=== PATIENT | male | born 1980 | race Hispanic/Latino ===

== ENCOUNTER 2017-09-12 19:52 | Inpatient (IN) | payer MEDICAID ==
[~2017-09-12] VITALS: Ht 170.2 cm; Wt 65.8 kg
[~2017-09-12 19:52] MED LIST: CEPHALEXIN500 MG ORAL; IBUPROFEN600 MG ORAL; NKM
[2017-09-12 20:46] LABS: ANION GAP 13 mmol/L (5-15); BLOOD UREA NITROGEN 17 mg/dL (7-18); CALCIUM 7.6 MG/DL (8.5-10.1); CARBON DIOXIDE 24 MMOL/L (21-32); CHLORIDE 101 MMOL/L (98-107); CREATININE 1.2 MG/DL (0.55-1.30); POTASSIUM 3.7 MMOL/L (3.5-5.1); SODIUM 138 MMOL/L (136-145)
[2017-09-12 20:51] LABS: ALANINE AMINOTRANSFERASE 43 U/L (12-78); ALBUMIN 2.7 G/DL (3.4-5.0); ALBUMIN/GLOBULIN RATIO 1.1 (1.0-2.7); ALKALINE PHOSPHATASE 43 U/L (46-116); ASPARTATE AMINO TRANSFERASE 37 U/L (15-37); BILIRUBIN,TOTAL 0.2 MG/DL (0.2-1.0)
[2017-09-12 21:00] LABS: HEMATOCRIT 9.1 % (42.0-52.0); HEMOGLOBIN 3.1 G/DL (14.2-18.0); MEAN CORPUSCULAR VOLUME 94 FL (80-99); RED BLOOD COUNT 0.97 M/UL (4.70-6.10); WHITE BLOOD COUNT 32.5 K/UL (4.8-10.8)
[2017-09-12 21:01] LABS: PLATELET COUNT 271 K/UL (150-450); RED CELL DISTRIBUTION WIDTH 13.5 % (11.6-14.8)
[2017-09-12 21:30] VITALS: BP 114/57
--- NOTE | 2017-09-12 22:03 | Emergency Room Report ---
History of Present Illness General Chief Complaint: Nausea, Vomiting, and Diarrhea Source: Patient Present Illness HPI 37-year-old male presents ED for evaluation. Patient came in complaining of abdominal pain and vomiting and diarrhea 3 days. States he knows blood in the stool today. Per triage patient is tachycardic, very pale. Patient states he ate a steak a few days ago and his symptoms started shortly thereafter. Denies recent travel. Denies recent antibiotic use. Denies fevers or chills. No other aggravating relieving factors. Denies any other associated symptoms Allergies: Coded Allergies: No Known Allergies (Unverified , 09/12/17) Patient History Past Medical History: none Past Surgical History: none Pertinent Family History: none Social History: Denies: smoking, alcohol use, drug use Immunizations: UTD Reviewed Nursing Documentation: PMH: Agreed; PSxH: Agreed Nursing Documentation-PMH Past Medical History: No Stated History Review of Systems All Other Systems: negative except mentioned in HPI Physical Exam Vital Signs Date Time Temp Pulse Resp B/P (MAP) Pulse Ox O2 Delivery O2 Flow Rate FiO2 09/12/17 20:04 98.4 132 24 129/61 100 Room Air 98.4 Sp02 EP Interpretation: reviewed, normal General Appearance: alert, GCS 15, non-toxic, mild distress Head: normocephalic, atraumatic Eyes: bilateral eye normal inspection, bilateral eye PERRL ENT: hearing grossly normal, normal pharynx, no angioedema, normal voice Neck: full range of motion, supple/symm/no masses Respiratory: chest non-tender, lungs clear, normal breath sounds, speaking full sentences Cardiovascular #1: no edema, tachycardia Cardiovascular #2: 2+ carotid (R), 2+ carotid (L), 2+ radial (R), 2+ radial (L) , 2+ dorsalis pedis (R), 2+ dorsalis pedis (L) Gastrointestinal: normal bowel sounds, non tender, soft, non-distended, no guarding, no rebound Rectal: deferred Genitourinary: normal inspection, no CVA tenderness Musculoskeletal: back normal, gait/station normal, normal range of motion, non- tender Neurologic: alert, oriented x3, responsive, motor strength/tone normal, sensory intact, speech normal Psychiatric: judgement/insight normal, memory normal, mood/affect normal, no suicidal/homicidal ideation Reflexes: 3+ bicep (R), 3+ bicep (L), 3+ tricep (R), 3+ tricep (L), 3+ knee (R) , 3+ knee (L) Skin: diaphoresis, other - pale Lymphatic: no adenopathy Procedures Critical Care Time Critical Care Time i. I feel this is a highly complex case requiring extensive working including EKG/Rhythm strip, Xray/CT/US, Blood/urine lab work, repeat exams while in ED, and administration of strong opiates/narcotics for pain control, admission to hospital or close patient follow up. Total time: 30 min bedside evaluation and treatment excludes procedures (EKG). Reason for critical care: Severely anemic, tachycardic, sepsis Possible complications: hypotension, hypertension, DC, shock, arrhythmias, metabolic acidosis, end organ damage, respiratory failure. Interventions: Labs, IV fluids, transfusion, antibiotics Course: Patient presenting with vomiting and diarrhea 3 days, tachycardic, pale and diaphoretic. WBC greater than 30,000, hemoglobin 3.1. Lactic acid greater than 5. Given multiple rounds of IV fluids, given Cipro, Flagyl, PRBCs ordered. Stool culture and C. difficile toxin pending Consultations: nursing staff, EMS, family Performed by: Dr Sandoval Tolerated well condition = critical j. because of unstable vital signs this patient had a condition that could potentially threaten life or limb. I feel this is a critical patient who required my full attention while patient was considered critical. Total Critical Care Time excluding procedures was greater than 35 minutes Medical Decision Making Diagnostic Impression: Primary Impression: Colitis Additional Impressions: Severe sepsis Anemia Qualified Codes: D64.9 - Anemia, unspecified ER Course Hospital Course 37-year-old male presents ED with abdominal pain, vomiting and diarrhea Clinical course differential - gastroenteritis, colitis , sepsis Patient placed on stretcher. After initial history and physical I ordered labs , IV fluids, medications Labs - WBC > 30, Hb 3.1. electrolytes ok. lactic > 5 EKG - sinus tachycardia Blood pressure maintaining. Given broad-spectrum antibiotics. Given 30 mL per KG fluid bolus. PRBCs ordered Cdiff and stool cultures pending Case discussed with Dr. Moore and he agreed to accept the patient to his service for further care and support I feel this is a highly complex case requiring extensive working including EKG/ Rhythm strip, Xray/CT/US, Blood/urine lab work, repeat exams while in ED, and administration of strong opiates/narcotics for pain control, admission to hospital or close patient follow up. Diagnosis - colitis, severe sepsis, anemia Patient admitted to SDU in critical condition Labs Test 09/12/17 19:40 09/12/17 20:45 09/12/17 21:15 Prothrombin Time 10.0 SEC (9.30-11.50) Prothromb Time International Ratio 1.0 (0.9-1.1) Activated Partial Thromboplast Time 18 SEC (23-33) Sodium Level 138 MMOL/L (136-145) Potassium Level 3.7 MMOL/L (3.5-5.1) Chloride Level 101 MMOL/L (98-107) Carbon Dioxide Level 24 MMOL/L (21-32) Anion Gap 13 mmol/L (5-15) Blood Urea Nitrogen 17 mg/dL (7-18) Creatinine 1.2 MG/DL (0.55-1.30) Estimat Glomerular Filtration Rate > 60 mL/min (>60) Glucose Level 234 MG/DL (74-106) Lactic Acid Level 5.10 mmol/L (0.66-2.22) Calcium Level 7.6 MG/DL (8.5-10.1) Total Bilirubin 0.2 MG/DL (0.2-1.0) Aspartate Amino Transf (AST/SGOT) 37 U/L (15-37) Alanine Aminotransferase (ALT/SGPT) 43 U/L (12-78) Alkaline Phosphatase 43 U/L (46-116) Total Protein 5.2 G/DL (6.4-8.2) Albumin 2.7 G/DL (3.4-5.0) Globulin 2.5 g/dL Albumin/Globulin Ratio 1.1 (1.0-2.7) White Blood Count 32.5 K/UL (4.8-10.8) Red Blood Count 0.97 M/UL (4.70-6.10) Hemoglobin 3.1 G/DL (14.2-18.0) Hematocrit 9.1 % (42.0-52.0) Mean Corpuscular Volume 94 FL (80-99) Mean Corpuscular Hemoglobin 32.3 PG (27.0-31.0) Mean Corpuscular Hemoglobin Concent 34.4 G/DL (32.0-36.0) Red Cell Distribution Width 13.5 % (11.6-14.8) Platelet Count 271 K/UL (150-450) Mean Platelet Volume 6.9 FL (6.5-10.1) Neutrophils (%) (Auto) % (45.0-75.0) Lymphocytes (%) (Auto) % (20.0-45.0) Monocytes (%) (Auto) % (1.0-10.0) Eosinophils (%) (Auto) % (0.0-3.0) Basophils (%) (Auto) % (0.0-2.0) Differential Total Cells Counted 100 Neutrophils % (Manual) 69 % (45-75) Lymphocytes % (Manual) 26 % (20-45) Monocytes % (Manual) 5 % (1-10) Eosinophils % (Manual) 0 % (0-3) Basophils % (Manual) 0 % (0-2) Band Neutrophils 0 % (0-8) Nucleated Red Blood Cells 2 /100 WBC Platelet Estimate Adequate Platelet Morphology Normal Polychromasia 1+ Hypochromasia 3+ EKG Diagnostic Results Rate: tachycardiac Rhythm: NSR ST Segments: no acute changes ASA given to the pt in ED: No Rhythm Strip Diag. Results EP Interpretation: yes Rhythm: NSR, no PVC's, no ectopy Last Vital Signs Date Time Temp Pulse Resp B/P (MAP) Pulse Ox O2 Delivery O2 Flow Rate FiO2 09/12/17 20:04 98.4 132 24 129/61 100 Room Air 98.4 Status: improved Disposition: ADMITTED INPATIENT Condition: Critical Scripts No Active Prescriptions or Reported Meds Referrals: NOT CHOSEN IPA/,REFERRING (PCP) Jarod Sandoval MD September 12, 2017 22:03
[2017-09-12 23:00] VITALS: BP 98/83
[2017-09-12] MEDS ORDERED: Acetaminophen 500mg (ES) tab ORAL ONE (23:15)
[2017-09-12 23:20] VITALS: BP 115/64
[2017-09-12 23:40] VITALS: BP 114/70
[2017-09-12] MEDS: Piperacillin/Tazobactam 3.375 GM in D5W 110 ML IVPB SCH (23:52)
[2017-09-13 01:14] LABS: APPEARANCE,URINE CLEAR; BILIRUBIN, URINE NEGATIVE (NEGATIVE); COLOR,URINE PALE YELLOW; GLUCOSE, URINE (UA) NEGATIVE (NEGATIVE); KETONES,URINE 1+ (NEGATIVE); LEUKOCYTE ESTERASE ,URINE NEGATIVE (NEGATIVE); NITRITE,URINE NEGATIVE (NEGATIVE); PH,URINE 5 (4.5-8.0); PROTEIN,URINE NEGATIVE (NEGATIVE); UROBILINOGEN,URINE NORMAL MG/DL (0.0-1.0)
[2017-09-13] MEDS: Piperacillin/Tazobactam 3.375 GM in D5W 110 ML IVPB SCH ×3 (06:45→21:00)
[2017-09-13] MEDS ORDERED: Pantoprazole 80 MG in NS 250 ML IV SCH ×3 (07:30→14:00)
[2017-09-13 08:00] VITALS: BP 124/64
--- NOTE | 2017-09-13 10:51 | General Progress Note ---
Assessment/Plan Assessment/Plan Assessment - GIB, suspect upper - ? ulcer - Severe anemia Recommendations - NPO - PPI - IVF -EGD Thank you Subjective Allergies: Coded Allergies: No Known Allergies (Unverified , 09/12/17) Objective Last 24 Hour Vital Signs Date Time Temp Pulse Resp B/P (MAP) Pulse Ox O2 Delivery O2 Flow Rate FiO2 09/13/17 08:00 98.2 114 21 124/64 100 Room Air 98.2 09/13/17 08:00 109 09/13/17 04:00 126 09/13/17 00:25 100.0 145 24 114/70 100 Nasal Cannula 2.0 100.0 09/13/17 00:03 99.8 09/12/17 23:40 100.0 145 24 114/70 100 Nasal Cannula 2.0 100.0 09/12/17 23:40 100.0 145 24 100.0 09/12/17 23:20 99.8 142 24 115/64 100 Nasal Cannula 2.0 99.8 09/12/17 23:04 100.6 09/12/17 23:00 100.6 143 15 98/83 100 Nasal Cannula 2.0 100.6 09/12/17 21:30 99.3 134 24 114/57 100 Room Air 99.3 09/12/17 20:04 98.4 132 24 129/61 100 Room Air 98.4 Intake and Output 09/12/17 09/13/17 19:00 07:00 Intake Total 2960 ml Output Total 550 ml Balance 2410 ml Intake IV Total 2410 ml Blood Product 550 ml Output Urine Total 550 ml # Voids 2 # Bowel Movements 3 Laboratory Tests 09/12/17 19:40: Prothrombin Time 10.0, Prothromb Time International Ratio 1.0, Activated Partial Thromboplast Time 18L, Sodium Level 138, Potassium Level 3.7, Chloride Level 101, Carbon Dioxide Level 24, Anion Gap 13, Blood Urea Nitrogen 17, Creatinine 1.2, Estimat Glomerular Filtration Rate > 60, Glucose Level 234H, Lactic Acid Level 5.10H, Calcium Level 7.6L, Total Bilirubin 0.2, Aspartate Amino Transf (AST/SGOT) 37, Alanine Aminotransferase (ALT/SGPT) 43, Alkaline Phosphatase 43L, Total Protein 5.2L, Albumin 2.7L, Globulin 2.5, Albumin/ Globulin Ratio 1.1 09/12/17 20:45: White Blood Count 32.5*H, Red Blood Count 0.97L, Hemoglobin 3.1*L, Hematocrit 9.1L, Mean Corpuscular Volume 94, Mean Corpuscular Hemoglobin 32.3H, Mean Corpuscular Hemoglobin Concent 34.4, Red Cell Distribution Width 13.5, Platelet Count 271, Mean Platelet Volume 6.9, Neutrophils (%) (Auto) , Lymphocytes (%) ( Auto) , Monocytes (%) (Auto) , Eosinophils (%) (Auto) , Basophils (%) (Auto) , Differential Total Cells Counted 100, Neutrophils % (Manual) 69, Lymphocytes % ( Manual) 26, Monocytes % (Manual) 5, Eosinophils % (Manual) 0, Basophils % ( Manual) 0, Band Neutrophils 0, Nucleated Red Blood Cells 2, Platelet Estimate Adequate, Platelet Morphology Normal, Polychromasia 1+, Hypochromasia 3+ 09/12/17 21:15: Lactic Acid Level 5.60H 09/13/17 00:15: Urine Color Pale yellow, Urine Appearance Clear, Urine pH 5, Urine Specific [place] 1.010, Urine Protein Negative, Urine Glucose (UA) Negative, Urine Ketones 1+H, Urine Occult Blood Negative, Urine Nitrite Negative, Urine Bilirubin Negative, Urine Urobilinogen Normal, Urine Leukocyte Esterase Negative Height (Feet): 5 Height (Inches): 7.00 Weight (Pounds): 150 Jony Busch MD September 13, 2017 10:51
[2017-09-13] MEDS: Pantoprazole 80 MG in NS 250 ML IV SCH ×2 (11:05→20:56)
[2017-09-13 12:00] VITALS: BP 100/62
[2017-09-13 13:10] LABS: HEMATOCRIT 23.1 % (42.0-52.0); HEMOGLOBIN 8.1 G/DL (14.2-18.0); MEAN CORPUSCULAR VOLUME 88 FL (80-99); PLATELET COUNT 171 K/UL (150-450); RED BLOOD COUNT 2.63 M/UL (4.70-6.10); RED CELL DISTRIBUTION WIDTH 11.9 % (11.6-14.8); WHITE BLOOD COUNT 18.4 K/UL (4.8-10.8)
--- NOTE | 2017-09-13 13:10 | Anethesia Preoperative Eval ---
Anesthesia Pre-op PMH/ROS General Date of Evaluation: September 13, 2017 Time of Evaluation: 14:45 Anesthesiologist: Rosibel ASA Score: ASA 3 - Emergency Mallampati Score Class I : Soft palate, uvula, fauces, pillars visible Class II: Soft palate, uvula, fauces visible Class III: Soft palate, base of uvula visible Class IV: Only hard plate visible Mallampati Classification: Class I Surgeon: Jo-Ann Diagnosis: Gi Bleed Surgical Procedure: EGD/Colonoscopy Anesthesia History: none Family History: no anesthesia problems Allergies: Coded Allergies: No Known Allergies (Unverified , 09/12/17) Medications: see eMAR Past Medical History Hematology/Immune: Reports: anemia - Severe Anesthesia Pre-op Phys. Exam Physician Exam Last Vital Signs Date Time Temp Pulse Resp B/P (MAP) Pulse Ox O2 Delivery O2 Flow Rate FiO2 09/13/17 12:00 93 09/13/17 12:00 98.4 20 100/62 100 Room Air 98.4 09/13/17 00:25 2.0 Constitutional: NAD Neurologic: CN 2-12 intact Cardiovascular: RRR Respiratory: CTA Gastrointestinal: S/NT/ND Airway Exam Mallampati Score: Class I MO: full ROM: full Teeth: intact Anesthesia Pre-op A/P Labs Hematology Test 09/12/17 20:45 09/13/17 13:00 White Blood Count 32.5 K/UL (4.8-10.8) *H Pending Red Blood Count 0.97 M/UL (4.70-6.10) L Pending Hemoglobin 3.1 G/DL (14.2-18.0) *L Pending Hematocrit 9.1 % (42.0-52.0) L Pending Mean Corpuscular Volume 94 FL (80-99) Pending Mean Corpuscular Hemoglobin 32.3 PG (27.0-31.0) H Pending Mean Corpuscular Hemoglobin Concent 34.4 G/DL (32.0-36.0) Pending Red Cell Distribution Width 13.5 % (11.6-14.8) Pending Platelet Count 271 K/UL (150-450) Pending Mean Platelet Volume 6.9 FL (6.5-10.1) Pending Neutrophils (%) (Auto) % (45.0-75.0) Pending Lymphocytes (%) (Auto) % (20.0-45.0) Pending Monocytes (%) (Auto) % (1.0-10.0) Pending Eosinophils (%) (Auto) % (0.0-3.0) Pending Basophils (%) (Auto) % (0.0-2.0) Pending Differential Total Cells Counted 100 Neutrophils % (Manual) 69 % (45-75) Lymphocytes % (Manual) 26 % (20-45) Monocytes % (Manual) 5 % (1-10) Eosinophils % (Manual) 0 % (0-3) Basophils % (Manual) 0 % (0-2) Band Neutrophils 0 % (0-8) Nucleated Red Blood Cells 2 /100 WBC Platelet Estimate Adequate Platelet Morphology Normal Polychromasia 1+ Hypochromasia 3+ Coagulation Test 09/12/17 19:40 09/13/17 13:00 Prothrombin Time 10.0 SEC (9.30-11.50) Pending Prothromb Time International Ratio 1.0 (0.9-1.1) Pending Activated Partial Thromboplast Time 18 SEC (23-33) L Chemistry Test 09/12/17 19:40 09/12/17 21:15 Sodium Level 138 MMOL/L (136-145) Potassium Level 3.7 MMOL/L (3.5-5.1) Chloride Level 101 MMOL/L (98-107) Carbon Dioxide Level 24 MMOL/L (21-32) Anion Gap 13 mmol/L (5-15) Blood Urea Nitrogen 17 mg/dL (7-18) Creatinine 1.2 MG/DL (0.55-1.30) Estimat Glomerular Filtration Rate > 60 mL/min (>60) Glucose Level 234 MG/DL (74-106) H Lactic Acid Level 5.10 mmol/L (0.66-2.22) H 5.60 mmol/L (0.66-2.22) H Calcium Level 7.6 MG/DL (8.5-10.1) L Total Bilirubin 0.2 MG/DL (0.2-1.0) Aspartate Amino Transf (AST/SGOT) 37 U/L (15-37) Alanine Aminotransferase (ALT/SGPT) 43 U/L (12-78) Alkaline Phosphatase 43 U/L (46-116) L Total Protein 5.2 G/DL (6.4-8.2) L Albumin 2.7 G/DL (3.4-5.0) L Globulin 2.5 g/dL Albumin/Globulin Ratio 1.1 (1.0-2.7) Risk Assessment & Plan Assessment: ASA 3E Plan: GA Status Change Before Surgery: No Anthony Gleason MD September 13, 2017 13:10
--- NOTE | 2017-09-13 13:13 | Immediate Post-Op Evaluation ---
Immediate Post-Op Evalulation Immediate Post-Op Evalulation Procedure: EGD/Colonoscopy Date of Evaluation: September 13, 2017 Time of Evaluation: 15:08 IV Fluids: 250 NS Blood Products: 0 Estimated Blood Loss: 2 Urinary Output: 0 Blood Pressure Systolic: 121 Blood Pressure Diastolic: 72 Pulse Rate: 91 Respiratory Rate: 16 O2 Sat by Pulse Oximetry: 100 Temperature (Fahrenheit): 98.3 Pain Score (1-10): 1 Nausea: No Vomiting: No Complications 0 Patient Status: awake, reacts, none Hydration Status: adequate Anthony Gleason MD September 13, 2017 13:13
--- NOTE | 2017-09-13 13:13 | 48 Hour Post Anesthesia Eval ---
Post Anesthesia Evaluation Procedure: EGD/Colonoscopy Date of Evaluation: September 13, 2017 Airway: patent Nausea: No Vomiting: No Pain Intensity: 1 Hydration Status: adequate Cardiopulmonary Status: Stable Mental Status/LOC: patient returned to baseline Follow-up Care/Observations: 0 Post-Anesthesia Complications: 0 Follow-up care needed: N/A Anthony Gleason MD September 13, 2017 13:13
--- NOTE | 2017-09-13 13:15 | History and Physical Report ---
DATE OF ADMISSION: 09/12/2017 CHIEF COMPLAINT: Anemia and GI bleed. HISTORY OF PRESENT ILLNESS: The patient is a 37-year-old male, no past medical history, presents with complaints of one week of melena and dark black stools. According to the patient, he was well when he noted the onset of black stools. He had 4 to 5 episodes a day. He felt weak, dizzy, short of breath, and then he presented to the emergency room where his hemoglobin was 3.8. He is currently on his third unit of packed red blood cells, is now being admitted. He denies any fever or chills. He has no prior history of peptic ulcer disease. Denies any NSAIDs. He drinks socially once a week. He occasionally uses cocaine. PAST MEDICAL HISTORY: None. PAST SURGICAL HISTORY: None. CURRENT MEDICATIONS: None. FAMILY HISTORY: None. SOCIAL HISTORY: Negative for tobacco. The patient occasionally smokes marijuana, uses crack cocaine. He drinks once a week. REVIEW OF SYSTEMS: Negative except for melena. PHYSICAL EXAMINATION: VITAL SIGNS: Temperature 100, pulse 126, respirations 24, and blood pressure 114/70. GENERAL: The patient is well-developed, no apparent distress. He is pale. NECK: Supple. HEART: Regular rate and rhythm. LUNGS: Clear. ABDOMEN: Soft. EXTREMITIES: Without clubbing or cyanosis. LABORATORY DATA: Sodium 138 and potassium 3.7. Lactic acid was 5. White count was 32,000. ASSESSMENT: This is a 37-year-old male, admitted with complaints of GI bleed. 1. GI bleed. 2. Severe anemia secondary to GI bleed. 3. Leukocytosis, rule out sepsis. PLAN: Transfused 4 units of packed red blood cells. Repeat CBC. Empiric antibiotic therapy. CT scan of the abdomen. GI consultation. IV proton pump inhibitors. NPO for now. Sukhwinder Moore M.D. DR: JAMES JOB#: [id number] CC:
[2017-09-13] MEDS ORDERED: Alfentanil 2ml Inj ONE ×2 (13:20→14:40)
[2017-09-13] MEDS ORDERED: Lidocaine 1% MPF 10mg/ml 5ml ONE ×3 (13:21→14:40)
[2017-09-13] MEDS ORDERED: Sodium Chloride 10ml vial INJ ONE (13:24)
--- NOTE | 2017-09-13 14:37 | Pre-Procedure Note/Attestation ---
Pre-Procedure Note/Attestation Complete Prior to Procedure Planned Procedure: not applicable Procedure Narrative: EGD Indications for Procedure Pre-Operative Diagnosis: UUGIB Attestation I attest that I discussed the nature of the procedure; its benefits; risks and complications; and alternatives (and the risks and benefits of such alternatives ), prior to the procedure, with the patient (or the patient's legal outside sales representative insurance). I attest that, if there was a reasonable possibility of needing a blood transfusion, the patient (or the patient's legal outside sales representative insurance) was given the [facility] standardized written summary, pursuant to the [place] Blood Safety Act ([place] Health and Safety Code # 1645, as amended). I attest that I re-evaluated the patient just prior to the surgery and that there has been no change in the patient's H&P, except as documented below: Jony Busch MD September 13, 2017 14:37
[2017-09-13] MEDS ORDERED: Propofol 200mg/20ml IV ONE (14:40)
--- NOTE | 2017-09-13 15:31 | Endoscopy Procedure Note ---
Endoscopy Procedure Note General Indication for Procedure: gib Procedures Performed: EGD Operative Findings/Diagnosis: nl Specimen: none Pt Tolerated Procedure Well: Yes Estimated Blood Loss: none Anesthesia Anesthesiologist: elías Anesthesia: MAC, moderate sedation Medications Medication Given: see anesthesia record Inserted Devices Implant(s) used?: No GI Core Measures 50 yrs or older w/o bx or poly: Not Applicable 10yrs. F/U not recommended: Not Applicable If not recommended, why?: Jony Busch MD September 13, 2017 15:31
--- NOTE | 2017-09-13 15:33 | Brief Operative Note ---
Immediate Post Operative Note Operative Note Chief Complaint: gib Pre-op Diagnosis: UUGIB Procedure: egd Post-op Diagnosis: nl Surgeon: reynold Anesthesiologist: elías Anesthesia: MAC Specimen: none Complications: yes Condition: stable Fluids: recorded Drains: none Implant(s) used?: No Jony Busch MD September 13, 2017 15:33
[2017-09-13] MEDS ORDERED: Lactulose 20gm/30ml UDC ORAL SCH (15:45)
--- NOTE | 2017-09-13 15:46 | 48 Hour Post Anesthesia Eval ---
Post Anesthesia Evaluation Procedure: EGD/Colonoscopy Date of Evaluation: September 13, 2017 Time of Evaluation: 17:23 Blood Pressure Systolic: 112 0: 67 Pulse Rate: 89 Respiratory Rate: 18 Temperature (Fahrenheit): 98.4 O2 Sat by Pulse Oximetry: 100 Airway: patent Nausea: No Vomiting: No Pain Intensity: 1 Hydration Status: adequate Cardiopulmonary Status: Stable Mental Status/LOC: patient returned to baseline Follow-up Care/Observations: 0 Post-Anesthesia Complications: 0 Follow-up care needed: N/A Anthony Gleason MD September 13, 2017 15:46
[2017-09-13 16:00] VITALS: BP 114/88
[2017-09-13 20:00] VITALS: BP 144/77
[2017-09-13] MEDS ORDERED: D5W 275ml ONE (20:35)
[2017-09-13] MEDS ORDERED: Tubing IV Blood Pump IV ONE (20:35)
[2017-09-13] MEDS ORDERED: NS 275ml ONE (20:35)
[2017-09-13] MEDS ORDERED: Tubing IV Secondary IV ONE (20:35)
[2017-09-13] MEDS ORDERED: HYDROcodone/Acetamin 10/325 tab ORAL PRN (21:45)
--- NOTE | 2017-09-13 22:30 | Consultation ---
DATE OF CONSULTATION: 09/13/2017 GASTROENTEROLOGY CONSULTATION CHIEF COMPLAINT: I was asked to see this patient for evaluation of gastrointestinal bleeding. HISTORY OF PRESENT ILLNESS: The patient is a pleasant 37-year-old man who was in his usual state of health until mid week on Thursday when he started feeling ill and sick to his stomach. He subsequently had vomiting on the next day and also noted black stools, which he had all along. The last night, he started feeling weak and dizzy and came to emergency room where he was found to have profound anemia and was admitted and transfused. He feels better now, but his second CBC has not been checked. He has not had any previous history of gastrointestinal bleeding. He does not take nonsteroidal antiinflammatory drugs, although after his problems have already started, he did take a dose of aspirin. He has no significant family history and no significant past medical history himself either. PAST MEDICAL HISTORY: Otherwise negative. FAMILY HISTORY: Noncontributory. SOCIAL HISTORY: The patient is single, but he has one daughter. 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 He smokes marijuana, but does not smoke cigarettes. He drinks about once a week. REVIEW OF SYSTEMS: Otherwise negative. PHYSICAL EXAMINATION: GENERAL: This is a pleasant man, seen in his room. HEENT: Normocephalic and atraumatic. Sclerae are anicteric. Oropharynx clear. NECK: Supple. CHEST: Clear to auscultation. CARDIOVASCULAR: Regular rate. ABDOMEN: Soft. EXTREMITIES: No edema. LABORATORY DATA: Noted. ASSESSMENT: This patient presents with acute gastrointestinal bleeding, which was presumably upper in nature. This is typically from peptic ulcer disease and the patient will have to be minimally evaluated with endoscopy to determine the nature and site of bleeding and treat it. If the ulcer has been diagnosed, then the patient will need to be checked for Helicobacter pylori and treated if positive. At this time, I will keep the patient NPO and give IV fluids with serial CBCs measurements. Proton pump inhibitor will be given. I spoke with nurse food and nutrition supervisor as well as the patient's nurse and advised them that the endoscopy would be set up today and I will be waiting for OR staff to be arranged. RECOMMENDATIONS: Per above discussion and per orders written in the chart. Thank you for asking me to participate in the care this patient. Jony Busch M.D. DR: Caridad JOB#: [id number] CC:
[2017-09-14] VITALS (8 sets, daily range): BP systolic 94–125; BP diastolic 54–83
[2017-09-14] MEDS: Piperacillin/Tazobactam 3.375 GM in D5W 110 ML IVPB SCH ×2 (05:28→14:24)
[2017-09-14] MEDS: Pantoprazole 80 MG in NS 250 ML IV SCH ×2 (05:28→17:58)
[2017-09-14 06:13] LABS: HEMOGLOBIN 7.9 G/DL (14.2-18.0); MEAN CORPUSCULAR VOLUME 88 FL (80-99); PLATELET COUNT 189 K/UL (150-450); RED BLOOD COUNT 2.49 M/UL (4.70-6.10); RED CELL DISTRIBUTION WIDTH 12.6 % (11.6-14.8); WHITE BLOOD COUNT 13.8 K/UL (4.8-10.8)
--- NOTE | 2017-09-14 08:41 | General Progress Note ---
Assessment/Plan Problem List: (1) Colitis ICD Codes: K52.9 - Noninfective gastroenteritis and colitis, unspecified SNOMED: 17149005 (2) Anemia ICD Codes: D64.9 - Anemia, unspecified SNOMED: 100239883 Qualifiers: Qualified Codes: D64.9 - Anemia, unspecified Status: stable Assessment/Plan stable h/h possible colonoscopy PPI rx transfuse prn abx Subjective ROS Limited/Unobtainable: No Constitutional: Reports: malaise, weakness HEENT: Reports: no symptoms Cardiovascular: Reports: no symptoms Respiratory: Reports: no symptoms Gastrointestinal/Abdominal: Reports: black stools Genitourinary: Reports: no symptoms Neurologic/Psychiatric: Reports: no symptoms Endocrine: Reports: no symptoms Hematologic/Lymphatic: Reports: anemia Allergies: Coded Allergies: No Known Allergies (Unverified , 09/12/17) All Systems: reviewed and negative except above Subjective no events. GI appreciated. negative upper endoscopy. Objective Last 24 Hour Vital Signs Date Time Temp Pulse Resp B/P (MAP) Pulse Ox O2 Delivery O2 Flow Rate FiO2 09/14/17 04:00 98.4 85 18 107/63 99 Room Air 98.4 09/14/17 04:00 74 09/14/17 00:00 84 09/14/17 00:00 98.1 87 20 116/61 98 Room Air 98.1 09/13/17 20:00 93 09/13/17 20:00 98.9 90 21 144/77 95 Room Air 98.9 09/13/17 16:00 94 09/13/17 16:00 98.7 89 21 114/88 99 Nasal Cannula 2.0 98.7 09/13/17 15:46 209.1 89 18 100 09/13/17 15:45 208.9 91 16 100 09/13/17 12:00 93 09/13/17 12:00 98.4 94 20 100/62 100 Room Air 98.4 Intake and Output 09/13/17 09/14/17 19:00 07:00 Intake Total 987.5 ml 401.75 ml Output Total 1700 ml 800 ml Balance -712.5 ml -398.25 ml Intake Oral 120 ml IV Total 367.5 ml 401.75 ml Blood Product 500 ml Output Urine Total 1700 ml 800 ml # Bowel Movements 7 6 Laboratory Tests 09/13/17 13:00: White Blood Count 18.4H, Red Blood Count 2.63L, Hemoglobin 8.1#L, Hematocrit 23.1#L, Mean Corpuscular Volume 88, Mean Corpuscular Hemoglobin 30.7, Mean Corpuscular Hemoglobin Concent 35.0, Red Cell Distribution Width 11.9, Platelet Count 171, Mean Platelet Volume 7.0, Neutrophils (%) (Auto) , Lymphocytes (%) ( Auto) , Monocytes (%) (Auto) , Eosinophils (%) (Auto) , Basophils (%) (Auto) , Differential Total Cells Counted 100, Neutrophils % (Manual) 74, Lymphocytes % ( Manual) 12L, Monocytes % (Manual) 9, Eosinophils % (Manual) 0, Basophils % ( Manual) 0, Band Neutrophils 5, Nucleated Red Blood Cells 5, Platelet Estimate Adequate, Platelet Morphology Normal, Polychromasia 3+, Hypochromasia 1+, Anisocytosis 1+, Prothrombin Time 9.8, Prothromb Time International Ratio 1.0 09/13/17 14:15: Lactic Acid Level 1.00 09/14/17 04:55: White Blood Count 13.8H, Red Blood Count 2.49L, Hemoglobin 7.9L, Hematocrit 22.0L, Mean Corpuscular Volume 88, Mean Corpuscular Hemoglobin 31.6H, Mean Corpuscular Hemoglobin Concent 35.9, Red Cell Distribution Width 12.6, Platelet Count 189, Mean Platelet Volume 6.3L, Neutrophils (%) (Auto) , Lymphocytes (%) ( Auto) , Monocytes (%) (Auto) , Eosinophils (%) (Auto) , Basophils (%) (Auto) , Neutrophils % (Manual) [Pending], Lymphocytes % (Manual) [Pending], Platelet Estimate [Pending], Platelet Morphology [Pending] Height (Feet): 5 Height (Inches): 7.00 Weight (Pounds): 150 General Appearance: WD/WN, no apparent distress, alert Cardiovascular: regular rhythm Respiratory/Chest: lungs clear Abdomen: normal bowel sounds, non tender, soft Edema: no edema noted Arm (L), no edema noted Arm (R), no edema noted Leg (L), no edema noted Leg (R), no edema noted Pedal (L), no edema noted Pedal (R), no edema noted Generalized UOMOTO,DEJON September 14, 2017 08:41
[2017-09-14] MEDS ORDERED: Nulytely 4L ORAL SCH (09:30)
[2017-09-14] MEDS ORDERED: Tubing IV Secondary IV ONE (17:02)
[2017-09-14 21:06] LABS: HEMATOCRIT 21.2 % (42.0-52.0); HEMOGLOBIN 7.8 G/DL (14.2-18.0); MEAN CORPUSCULAR VOLUME 87 FL (80-99); PLATELET COUNT 197 K/UL (150-450); RED BLOOD COUNT 2.43 M/UL (4.70-6.10); RED CELL DISTRIBUTION WIDTH 11.9 % (11.6-14.8); WHITE BLOOD COUNT 11.6 K/UL (4.8-10.8)
--- NOTE | 2017-09-14 21:15 | General Progress Note ---
Assessment/Plan Assessment/Plan Assessment - GIB,? source, negative EGD - Severe anemia Recommendations - clears - colon in am - if negative, will need small bowel eval Subjective Allergies: Coded Allergies: No Known Allergies (Verified , 06/03/09) Subjective no new c/o some dark stools Objective Last 24 Hour Vital Signs Date Time Temp Pulse Resp B/P (MAP) Pulse Ox O2 Delivery O2 Flow Rate FiO2 09/14/17 20:00 98.4 81 20 106/77 98 Room Air 98.4 09/14/17 16:00 83 09/14/17 15:47 98.4 89 18 104/64 99 Room Air 98.4 09/14/17 12:55 83 16 103/54 100 Simple Mask 6.0 09/14/17 12:50 97.2 80 20 94/65 98 Simple Mask 6.0 97.2 09/14/17 12:00 98.1 79 20 125/83 98 Room Air 98.1 09/14/17 11:40 84 09/14/17 08:00 79 09/14/17 08:00 98.0 98 20 99/67 98 Room Air 98.0 09/14/17 04:00 98.4 85 18 107/63 99 Room Air 98.4 09/14/17 04:00 74 09/14/17 00:00 84 09/14/17 00:00 98.1 87 20 116/61 98 Room Air 98.1 Intake and Output 09/13/17 09/14/17 19:00 07:00 Intake Total 987.5 ml 401.75 ml Output Total 1700 ml 800 ml Balance -712.5 ml -398.25 ml Intake Oral 120 ml IV Total 367.5 ml 401.75 ml Blood Product 500 ml Output Urine Total 1700 ml 800 ml # Bowel Movements 7 6 Laboratory Tests 09/14/17 04:55: White Blood Count 13.8H, Red Blood Count 2.49L, Hemoglobin 7.9L, Hematocrit 22.0L, Mean Corpuscular Volume 88, Mean Corpuscular Hemoglobin 31.6H, Mean Corpuscular Hemoglobin Concent 35.9, Red Cell Distribution Width 12.6, Platelet Count 189, Mean Platelet Volume 6.3L, Neutrophils (%) (Auto) , Lymphocytes (%) ( Auto) , Monocytes (%) (Auto) , Eosinophils (%) (Auto) , Basophils (%) (Auto) , Differential Total Cells Counted 100, Neutrophils % (Manual) 61, Lymphocytes % ( Manual) 23, Monocytes % (Manual) 12H, Eosinophils % (Manual) 3, Basophils % ( Manual) 1, Band Neutrophils 0, Nucleated Red Blood Cells 2, Platelet Estimate Adequate, Platelet Morphology Normal, Polychromasia 2+, Hypochromasia 3+, Anisocytosis 1+, Spherocytes 2+ 09/14/17 20:30: White Blood Count 11.6H, Red Blood Count 2.43L, Hemoglobin 7.8L, Hematocrit 21.2L, Mean Corpuscular Volume 87, Mean Corpuscular Hemoglobin 32.1H, Mean Corpuscular Hemoglobin Concent 36.8H, Red Cell Distribution Width 11.9, Platelet Count 197, Mean Platelet Volume 5.6L, Neutrophils (%) (Auto) , Lymphocytes (%) (Auto) , Monocytes (%) (Auto) , Eosinophils (%) (Auto) , Basophils (%) (Auto) , Neutrophils % (Manual) [Pending], Lymphocytes % (Manual) [Pending], Platelet Estimate [Pending], Platelet Morphology [Pending] Height (Feet): 5 Height (Inches): 7.00 Weight (Pounds): 150 Objective WDWN NCAT supple CTA RRR soft No edema Jony Busch MD September 14, 2017 21:15
[2017-09-15] VITALS (31 sets, daily range): BP systolic 91–123; BP diastolic 61–94
[2017-09-15] MEDS: Piperacillin/Tazobactam 3.375 GM in D5W 110 ML IVPB SCH ×4 (03:13→22:00)
[2017-09-15] MEDS ORDERED: Propofol 200mg/20ml IV ONE (06:30)
[2017-09-15] MEDS ORDERED: Lidocaine 1% MPF 10mg/ml 5ml ONE (06:30)
[2017-09-15] MEDS ORDERED: NS 500ML IVPB ONE (06:35)
--- NOTE | 2017-09-15 06:39 | Anethesia Preoperative Eval ---
Anesthesia Pre-op PMH/ROS General Date of Evaluation: September 15, 2017 Time of Evaluation: 06:28 Anesthesiologist: rosanna ASA Score: ASA 2 Mallampati Score Class I : Soft palate, uvula, fauces, pillars visible Class II: Soft palate, uvula, fauces visible Class III: Soft palate, base of uvula visible Class IV: Only hard plate visible Mallampati Classification: Class I Surgeon: reynold Diagnosis: anemia Surgical Procedure: colonoscopy Anesthesia History: none Social History: smoking - marijuana Family History: no anesthesia problems Allergies: Coded Allergies: No Known Allergies (Verified , 06/03/09) Medications: see eMAR Past Medical History Hematology/Immune: Reports: anemia Anesthesia Pre-op Phys. Exam Physician Exam Last Vital Signs Date Time Temp Pulse Resp B/P (MAP) Pulse Ox O2 Delivery O2 Flow Rate FiO2 09/15/17 00:00 98.5 83 18 105/69 99 Room Air 98.5 09/14/17 12:55 6.0 Constitutional: NAD Neurologic: CN 2-12 intact Cardiovascular: RRR Respiratory: CTA Gastrointestinal: S/NT/ND Airway Exam Mallampati Score: Class I MO: full Neck: supple TMD: 2fb ROM: full Teeth: intact Anesthesia Pre-op A/P Labs Hematology Test 09/14/17 20:30 White Blood Count 11.6 K/UL (4.8-10.8) H Red Blood Count 2.43 M/UL (4.70-6.10) L Hemoglobin 7.8 G/DL (14.2-18.0) L Hematocrit 21.2 % (42.0-52.0) L Mean Corpuscular Volume 87 FL (80-99) Mean Corpuscular Hemoglobin 32.1 PG (27.0-31.0) H Mean Corpuscular Hemoglobin Concent 36.8 G/DL (32.0-36.0) H Red Cell Distribution Width 11.9 % (11.6-14.8) Platelet Count 197 K/UL (150-450) Mean Platelet Volume 5.6 FL (6.5-10.1) L Neutrophils (%) (Auto) % (45.0-75.0) Lymphocytes (%) (Auto) % (20.0-45.0) Monocytes (%) (Auto) % (1.0-10.0) Eosinophils (%) (Auto) % (0.0-3.0) Basophils (%) (Auto) % (0.0-2.0) Differential Total Cells Counted 100 Neutrophils % (Manual) 69 % (45-75) Lymphocytes % (Manual) 20 % (20-45) Monocytes % (Manual) 9 % (1-10) Eosinophils % (Manual) 1 % (0-3) Basophils % (Manual) 1 % (0-2) Band Neutrophils 0 % (0-8) Nucleated Red Blood Cells 1 /100 WBC Platelet Estimate Adequate Platelet Morphology Normal Polychromasia 1+ Hypochromasia 2+ Anisocytosis 1+ Risk Assessment & Plan Assessment: asa2 Plan: mac Status Change Before Surgery: No Pre-Antibiotics Drug: Anusha Cervantes MD September 15, 2017 06:39
--- NOTE | 2017-09-15 06:42 | Pre-Procedure Note/Attestation ---
Pre-Procedure Note/Attestation Complete Prior to Procedure Planned Procedure: not applicable Procedure Narrative: colon Indications for Procedure Pre-Operative Diagnosis: GIB Attestation I attest that I discussed the nature of the procedure; its benefits; risks and complications; and alternatives (and the risks and benefits of such alternatives ), prior to the procedure, with the patient (or the patient's legal freight representative). I attest that, if there was a reasonable possibility of needing a blood transfusion, the patient (or the patient's legal freight representative) was given the [facility] standardized written summary, pursuant to the [place] Blood Safety Act ([place] Health and Safety Code # 1645, as amended). I attest that I re-evaluated the patient just prior to the surgery and that there has been no change in the patient's H&P, except as documented below: Jony Busch MD September 15, 2017 06:42
[2017-09-15] MEDS ORDERED: DiphenhydrAMINE 50mg/ml Inj IVP PRN (06:45)
[2017-09-15] MEDS ORDERED: Atropine Inj 1mg/10ml Syr IV PRN (06:45)
[2017-09-15] MEDS ORDERED: Midazolam 2mg/2ml Inj IVP PRN (06:45)
[2017-09-15] MEDS ORDERED: fentaNYL 100 mcg/2 mL IV PRN (06:45)
--- NOTE | 2017-09-15 07:09 | Endoscopy Procedure Note ---
Endoscopy Procedure Note General Indication for Procedure: GIB Procedures Performed: colonoscopy Operative Findings/Diagnosis: scattered diverticulosis Specimen: none Pt Tolerated Procedure Well: Yes Estimated Blood Loss: none Anesthesia Anesthesiologist: Thierno Bass Anesthesia: MAC Medications Medication Given: see anesthesia record Inserted Devices Implant(s) used?: No Quality Quality of Bowel Preparation: Excellent GI Core Measures 50 yrs or older w/o bx or poly: Not Applicable 10yrs. F/U not recommended: Not Applicable If not recommended, why?: Jony Busch MD September 15, 2017 07:09
--- NOTE | 2017-09-15 07:13 | Brief Operative Note ---
Immediate Post Operative Note Operative Note Chief Complaint: GIB Pre-op Diagnosis: GIB Procedure: egd Post-op Diagnosis: scattered pancolonic tics, small bits of dark blood in last 15 cm of TI Surgeon: reynold Anesthesiologist: deep mead Anesthesia: MAC Specimen: none Complications: none Condition: stable Fluids: given Estimated Blood Loss: none Drains: none Implant(s) used?: No Jony Busch MD September 15, 2017 07:13
--- NOTE | 2017-09-15 07:18 | General Progress Note ---
Assessment/Plan Assessment/Plan Assessment - GIB,? source, negative EGD, negative Colon (but with small bowel blood) - Severe anemia Recommendations - clears - capsule endo in am - transfuse PRN Subjective Allergies: Coded Allergies: No Known Allergies (Verified , 06/03/09) Subjective seen in GI lab no new c/o slightly lower H&H colonoscopy done: - scattered mild diverticulosis - dark bits of residual blood seen coming from small bowel Objective Last 24 Hour Vital Signs Date Time Temp Pulse Resp B/P (MAP) Pulse Ox O2 Delivery O2 Flow Rate FiO2 09/15/17 04:00 98.1 80 20 107/71 99 Room Air 98.1 09/15/17 04:00 78 09/15/17 00:00 98.5 83 18 105/69 99 Room Air 98.5 09/14/17 20:00 83 09/14/17 20:00 98.4 81 20 106/77 98 Room Air 98.4 09/14/17 16:00 83 09/14/17 15:47 98.4 89 18 104/64 99 Room Air 98.4 09/14/17 12:55 83 16 103/54 100 Simple Mask 6.0 09/14/17 12:50 97.2 80 20 94/65 98 Simple Mask 6.0 97.2 09/14/17 12:00 98.1 79 20 125/83 98 Room Air 98.1 09/14/17 11:40 84 09/14/17 08:00 79 09/14/17 08:00 98.0 98 20 99/67 98 Room Air 98.0 Intake and Output 09/14/17 09/15/17 19:00 07:00 Intake Total 2812.5 ml Output Total 2050 ml Balance 762.5 ml Intake Oral 930 ml IV Total 442.5 ml Other 1440 ml Output Urine Total 1900 ml Stool Total 150 ml # Bowel Movements 9 6 Laboratory Tests 09/14/17 20:30: White Blood Count 11.6H, Red Blood Count 2.43L, Hemoglobin 7.8L, Hematocrit 21.2L, Mean Corpuscular Volume 87, Mean Corpuscular Hemoglobin 32.1H, Mean Corpuscular Hemoglobin Concent 36.8H, Red Cell Distribution Width 11.9, Platelet Count 197, Mean Platelet Volume 5.6L, Neutrophils (%) (Auto) , Lymphocytes (%) (Auto) , Monocytes (%) (Auto) , Eosinophils (%) (Auto) , Basophils (%) (Auto) , Differential Total Cells Counted 100, Neutrophils % ( Manual) 69, Lymphocytes % (Manual) 20, Monocytes % (Manual) 9, Eosinophils % ( Manual) 1, Basophils % (Manual) 1, Band Neutrophils 0, Nucleated Red Blood Cells 1, Platelet Estimate Adequate, Platelet Morphology Normal, Polychromasia 1 +, Hypochromasia 2+, Anisocytosis 1+ Height (Feet): 5 Height (Inches): 7.00 Weight (Pounds): 150 Cardiovascular: normal peripheral pulses Pelvis: normal rectal exam Objective WDWN NCAT supple CTA RRR soft No edema Jony Busch MD September 15, 2017 07:18
--- NOTE | 2017-09-15 07:57 | General Progress Note ---
Assessment/Plan Problem List: (1) Colitis ICD Codes: K52.9 - Noninfective gastroenteritis and colitis, unspecified SNOMED: 92074294 (2) Anemia ICD Codes: D64.9 - Anemia, unspecified SNOMED: 838556013 Qualifiers: Status: stable Assessment/Plan stable h/h capsule endoscopy tomorrow PPI rx transfuse prn abx Subjective ROS Limited/Unobtainable: No Constitutional: Reports: no symptoms HEENT: Reports: no symptoms Cardiovascular: Reports: no symptoms Respiratory: Reports: no symptoms Gastrointestinal/Abdominal: Reports: black stools, tarry stools, blood in stool Genitourinary: Reports: no symptoms Neurologic/Psychiatric: Reports: no symptoms Endocrine: Reports: no symptoms Hematologic/Lymphatic: Reports: no symptoms Allergies: Coded Allergies: No Known Allergies (Verified , 06/03/09) All Systems: reviewed and negative except above Subjective no events. GI appreciated. negative upper and lower endoscopy Objective Last 24 Hour Vital Signs Date Time Temp Pulse Resp B/P (MAP) Pulse Ox O2 Delivery O2 Flow Rate FiO2 09/15/17 07:35 97.8 81 18 108/78 99 Room Air 97.8 09/15/17 07:25 83 15 106/81 98 Room Air 09/15/17 07:20 80 14 104/75 98 Room Air 09/15/17 07:15 98.0 82 18 99/73 100 Simple Mask 6.0 98.0 09/15/17 04:00 98.1 80 20 107/71 99 Room Air 98.1 09/15/17 04:00 78 09/15/17 00:00 98.5 83 18 105/69 99 Room Air 98.5 09/14/17 20:00 83 09/14/17 20:00 98.4 81 20 106/77 98 Room Air 98.4 09/14/17 16:00 83 09/14/17 15:47 98.4 89 18 104/64 99 Room Air 98.4 09/14/17 12:55 83 16 103/54 100 Simple Mask 6.0 09/14/17 12:50 97.2 80 20 94/65 98 Simple Mask 6.0 97.2 09/14/17 12:00 98.1 79 20 125/83 98 Room Air 98.1 09/14/17 11:40 84 09/14/17 08:00 79 09/14/17 08:00 98.0 98 20 99/67 98 Room Air 98.0 Intake and Output 09/14/17 09/15/17 19:00 07:00 Intake Total 2812.5 ml Output Total 2050 ml Balance 762.5 ml Intake Oral 930 ml IV Total 442.5 ml Other 1440 ml Output Urine Total 1900 ml Stool Total 150 ml # Bowel Movements 9 6 Laboratory Tests 09/14/17 20:30: White Blood Count 11.6H, Red Blood Count 2.43L, Hemoglobin 7.8L, Hematocrit 21.2L, Mean Corpuscular Volume 87, Mean Corpuscular Hemoglobin 32.1H, Mean Corpuscular Hemoglobin Concent 36.8H, Red Cell Distribution Width 11.9, Platelet Count 197, Mean Platelet Volume 5.6L, Neutrophils (%) (Auto) , Lymphocytes (%) (Auto) , Monocytes (%) (Auto) , Eosinophils (%) (Auto) , Basophils (%) (Auto) , Differential Total Cells Counted 100, Neutrophils % ( Manual) 69, Lymphocytes % (Manual) 20, Monocytes % (Manual) 9, Eosinophils % ( Manual) 1, Basophils % (Manual) 1, Band Neutrophils 0, Nucleated Red Blood Cells 1, Platelet Estimate Adequate, Platelet Morphology Normal, Polychromasia 1 +, Hypochromasia 2+, Anisocytosis 1+ Height (Feet): 5 Height (Inches): 7.00 Weight (Pounds): 150 MARGAUXDEJON September 15, 2017 07:57
[2017-09-15 10:12] LABS: BASOPHILS % (AUTO) 0.4 % (0.0-2.0); HEMOGLOBIN 8.2 G/DL (14.2-18.0); LYMPHOCYTES % (AUTO) 16.7 % (20.0-45.0); MEAN CORPUSCULAR VOLUME 88 FL (80-99); MONOCYTES % (AUTO) 10.5 % (1.0-10.0); NEUTROPHILS % (AUTO) 71.4 % (45.0-75.0); PLATELET COUNT 215 K/UL (150-450); RED BLOOD COUNT 2.74 M/UL (4.70-6.10); RED CELL DISTRIBUTION WIDTH 12.4 % (11.6-14.8); WHITE BLOOD COUNT 11.8 K/UL (4.8-10.8)
[2017-09-15 15:12] LABS: HEMATOCRIT 20.6 % (42.0-52.0); HEMOGLOBIN 7.3 G/DL (14.2-18.0); MEAN CORPUSCULAR VOLUME 87 FL (80-99); PLATELET COUNT 173 K/UL (150-450); RED BLOOD COUNT 2.36 M/UL (4.70-6.10); RED CELL DISTRIBUTION WIDTH 12.5 % (11.6-14.8); WHITE BLOOD COUNT 12.7 K/UL (4.8-10.8)
[2017-09-15] MEDS ORDERED: NS 275ml ONE (17:44)
[2017-09-15] MEDS ORDERED: Tubing IV Secondary IV ONE (17:44)
[2017-09-15] MEDS ORDERED: NS 500ML ONE (17:44)
[2017-09-15] MEDS ORDERED: Tubing IV Blood Pump IV ONE (17:44)
[2017-09-16] VITALS (23 sets, daily range): BP systolic 101–161; BP diastolic 60–117
[2017-09-16 03:14] LABS: HEMATOCRIT 14.8 % (42.0-52.0); MEAN CORPUSCULAR VOLUME 86 FL (80-99); PLATELET COUNT 115 K/UL (150-450); RED BLOOD COUNT 1.71 M/UL (4.70-6.10); RED CELL DISTRIBUTION WIDTH 12.4 % (11.6-14.8); WHITE BLOOD COUNT 10.2 K/UL (4.8-10.8)
[2017-09-16 05:04] LABS: HEMATOCRIT 15.7 % (42.0-52.0); MEAN CORPUSCULAR VOLUME 88 FL (80-99); PLATELET COUNT 119 K/UL (150-450); RED BLOOD COUNT 1.78 M/UL (4.70-6.10); RED CELL DISTRIBUTION WIDTH 14.5 % (11.6-14.8); WHITE BLOOD COUNT 11.2 K/UL (4.8-10.8)
[2017-09-16 05:32] LABS: HEMOGLOBIN 5.1 G/DL (14.2-18.0)
[2017-09-16] MEDS: Piperacillin/Tazobactam 3.375 GM in D5W 110 ML IVPB SCH ×3 (06:11→22:00)
--- NOTE | 2017-09-16 07:32 | General Progress Note ---
Assessment/Plan Problem List: (1) Colitis ICD Codes: K52.9 - Noninfective gastroenteritis and colitis, unspecified SNOMED: 55150769 (2) Anemia ICD Codes: D64.9 - Anemia, unspecified SNOMED: 698507943 Qualifiers: Status: not improved Assessment/Plan transfer to icu 3 units prbc ordered capsule endoscopy ?angio PPI rx transfuse prn abx critical and guarded transfer to icu Subjective ROS Limited/Unobtainable: No Constitutional: Reports: malaise, weakness HEENT: Reports: no symptoms Cardiovascular: Reports: no symptoms Respiratory: Reports: no symptoms Gastrointestinal/Abdominal: Reports: black stools, tarry stools, rectal bleeding Genitourinary: Reports: no symptoms Neurologic/Psychiatric: Reports: no symptoms Endocrine: Reports: no symptoms Hematologic/Lymphatic: Reports: anemia Allergies: Coded Allergies: No Known Allergies (Verified , 06/03/09) All Systems: reviewed and negative except above Subjective large volume maroon, bloody stool. hypotensive. 2 units prbc given yesterday and hgb went from 7 to 5 Objective Last 24 Hour Vital Signs Date Time Temp Pulse Resp B/P (MAP) Pulse Ox O2 Delivery O2 Flow Rate FiO2 09/16/17 04:00 99.0 102 20 101/66 99 Room Air 99.0 09/16/17 04:00 98 09/16/17 00:00 99.7 129 20 112/66 100 Room Air 99.7 09/15/17 23:23 107 09/15/17 22:13 129 103/62 100 Room Air 09/15/17 21:52 123 110/66 100 Room Air 09/15/17 21:46 120 118/80 100 Room Air 09/15/17 21:24 99.6 114 122/70 100 Room Air 99.6 09/15/17 21:08 121 123/94 98 Room Air 09/15/17 21:07 124 117/65 100 Room Air 09/15/17 21:05 117 117/76 100 Room Air 09/15/17 20:59 112 113/70 100 Room Air 09/15/17 20:54 111 107/71 100 Room Air 09/15/17 20:48 115 109/68 100 Room Air 09/15/17 20:43 112 97/77 98 Room Air 09/15/17 20:38 108 103/69 99 Room Air 09/15/17 20:36 112 09/15/17 20:33 119 98/64 99 Room Air 09/15/17 20:29 111 105/70 99 Room Air 09/15/17 20:27 111 101/74 100 Room Air 09/15/17 20:24 98.8 115 102/68 100 Room Air 98.8 09/15/17 20:21 111 107/68 100 Room Air 09/15/17 20:19 110 106/64 100 Room Air 09/15/17 20:18 117 103/73 100 Room Air 09/15/17 20:11 117 98/73 100 Room Air 09/15/17 20:08 126 110/65 100 Room Air 09/15/17 20:08 117 98/73 100 Room Air 09/15/17 20:00 115 95/68 100 Room Air 09/15/17 19:59 131 95/72 100 Room Air 09/15/17 16:00 98.6 99 18 91/61 97 Room Air 98.6 09/15/17 16:00 78 09/15/17 12:00 98.6 94 18 109/68 100 Room Air 98.6 09/15/17 12:00 93 09/15/17 08:00 88 09/15/17 07:35 97.8 81 18 108/78 99 Room Air 97.8 Intake and Output 09/15/17 09/16/17 19:00 07:00 Intake Total 910.0 ml Output Total 0 ml Balance 910.0 ml IV Total 660.0 ml Blood Product 250 ml Estimated Blood Loss 0 ml # Bowel Movements 6 9 Laboratory Tests 09/15/17 09:50: White Blood Count 11.8H, Red Blood Count 2.74L, Hemoglobin 8.2L, Hematocrit 24.0L, Mean Corpuscular Volume 88, Mean Corpuscular Hemoglobin 30.1, Mean Corpuscular Hemoglobin Concent 34.4, Red Cell Distribution Width 12.4, Platelet Count 215, Mean Platelet Volume 6.2L, Neutrophils (%) (Auto) 71.4, Lymphocytes ( %) (Auto) 16.7L, Monocytes (%) (Auto) 10.5H, Eosinophils (%) (Auto) 1.0, Basophils (%) (Auto) 0.4 09/15/17 14:50: White Blood Count 12.7H, Red Blood Count 2.36L, Hemoglobin 7.3L, Hematocrit 20.6L, Mean Corpuscular Volume 87, Mean Corpuscular Hemoglobin 31.1H, Mean Corpuscular Hemoglobin Concent 35.6, Red Cell Distribution Width 12.5, Platelet Count 173, Mean Platelet Volume 6.4L, Neutrophils (%) (Auto) , Lymphocytes (%) ( Auto) , Monocytes (%) (Auto) , Eosinophils (%) (Auto) , Basophils (%) (Auto) , Differential Total Cells Counted 100, Neutrophils % (Manual) 66, Lymphocytes % ( Manual) 18L, Monocytes % (Manual) 8, Eosinophils % (Manual) 2, Basophils % ( Manual) 1, Band Neutrophils 5, Nucleated Red Blood Cells 2, Platelet Estimate Adequate, Platelet Morphology Normal, Polychromasia 1+, Hypochromasia 1+, Anisocytosis 1+ 09/16/17 02:20: White Blood Count 10.2, Red Blood Count 1.71L, Hemoglobin 5.0#*L, Hematocrit 14.8L, Mean Corpuscular Volume 86, Mean Corpuscular Hemoglobin 29.3, Mean Corpuscular Hemoglobin Concent 33.9, Red Cell Distribution Width 12.4, Platelet Count 115L, Mean Platelet Volume 6.7, Neutrophils (%) (Auto) , Lymphocytes (%) ( Auto) , Monocytes (%) (Auto) , Eosinophils (%) (Auto) , Basophils (%) (Auto) 09/16/17 04:40: White Blood Count 11.2H, Red Blood Count 1.78L, Hemoglobin 5.1*L, Hematocrit 15.7L, Mean Corpuscular Volume 88, Mean Corpuscular Hemoglobin 28.9, Mean Corpuscular Hemoglobin Concent 32.6, Red Cell Distribution Width 14.5, Platelet Count 119L, Mean Platelet Volume 6.8, Neutrophils (%) (Auto) , Lymphocytes (%) ( Auto) , Monocytes (%) (Auto) , Eosinophils (%) (Auto) , Basophils (%) (Auto) , Neutrophils % (Manual) [Pending], Lymphocytes % (Manual) [Pending], Platelet Estimate [Pending], Platelet Morphology [Pending] Height (Feet): 5 Height (Inches): 7.00 Weight (Pounds): 147 General Appearance: WD/WN, alert Cardiovascular: normal rate Respiratory/Chest: lungs clear Abdomen: normal bowel sounds, soft Edema: no edema noted Arm (L), no edema noted Arm (R), no edema noted Leg (L), no edema noted Leg (R), no edema noted Pedal (L), no edema noted Pedal (R), no edema noted Generalized DEJON DAMICO September 16, 2017 07:31
[2017-09-16 08:35] LABS: HEMATOCRIT 15.5 % (42.0-52.0); MEAN CORPUSCULAR VOLUME 88 FL (80-99); PLATELET COUNT 135 K/UL (150-450); RED BLOOD COUNT 1.76 M/UL (4.70-6.10); RED CELL DISTRIBUTION WIDTH 15.9 % (11.6-14.8); WHITE BLOOD COUNT 11.3 K/UL (4.8-10.8)
[2017-09-16 08:40] LABS: HEMOGLOBIN 5.1 G/DL (14.2-18.0)
[2017-09-16] MEDS ORDERED: HYDROcodone/Acetamin 10/325 tab ORAL PRN (09:45)
[2017-09-16 19:52] LABS: HEMATOCRIT 20.5 % (42.0-52.0); HEMOGLOBIN 7.2 G/DL (14.2-18.0); MEAN CORPUSCULAR VOLUME 87 FL (80-99); PLATELET COUNT 119 K/UL (150-450); RED BLOOD COUNT 2.37 M/UL (4.70-6.10); RED CELL DISTRIBUTION WIDTH 14.4 % (11.6-14.8)
[2017-09-16 19:59] LABS: WHITE BLOOD COUNT 23.1 K/UL (4.8-10.8)
[2017-09-16 20:02] LABS: ANION GAP 10 mmol/L (5-15); BLOOD UREA NITROGEN 12 mg/dL (7-18); CALCIUM 6.3 MG/DL (8.5-10.1); CARBON DIOXIDE 18 MMOL/L (21-32); CHLORIDE 112 MMOL/L (98-107); CREATININE 0.7 MG/DL (0.55-1.30); POTASSIUM 3.1 MMOL/L (3.5-5.1); SODIUM 140 MMOL/L (136-145)
--- NOTE | 2017-09-16 20:06 | Consultation ---
History of Present Illness General Date patient seen: September 16, 2017 Chief Complaint: Nausea, Vomiting, and Diarrhea Reason for Consultation: gi bleeding Present Illness HPI 37M with GI bleed. initial Hb 3. transfused 4 units prbc and stable at 8 until earlier today when dropped own to 5. upper and lower endoscopy did not find etiology of bleeding. capsule endoscopy performed and results pending. patient went to bathroom this afternoon and noted to have large bloody bowel movement. surgery called to evaluate. patient transfused 4 more units prbc. patient seen at bedside. pale, fatigued, cold and clammy. history obtained. discussed care. plan for surgery given condition. Allergies: Coded Allergies: No Known Allergies (Verified , 06/03/09) Medication History Scheduled Cephalexin* (Keflex*), 500 MG ORAL EVERY 6 HOURS Ibuprofen* (Motrin*), 600 MG ORAL Q6H No Known Medications* (NKM - No Known Medications*), 0 ., (Reported) Patient History History Provided By: Patient, Medical Record, PMD Healthcare decision maker Patient Resuscitation status Full Code Advanced Directive on File No Past Medical/Surgical History Past Medical/Surgical History: (1) GI bleed (2) Severe sepsis (3) Anemia (4) Colitis Review of Systems All Other Systems: negative except mentioned in HPI Physical Exam General Appearance: moderate distress Lines, tubes and drains: peripheral HEENT: normocephalic, PERRL Neck: normal inspection Respiratory/Chest: normal breath sounds, no respiratory distress, no accessory muscle use Cardiovascular/Chest: other - faint pulses Abdomen: non tender, soft, no organomegaly, no mass Genitourinary/Rectal: normal genital exam Extremities: normal range of motion Skin Exam: other - cold, clammy, pale Neurologic: alert, oriented x 3, responsive Last 24 Hour Vital Signs Date Time Temp Pulse Resp B/P (MAP) Pulse Ox O2 Delivery O2 Flow Rate FiO2 09/16/17 16:00 89 09/16/17 16:00 98.5 87 18 124/72 100 Room Air 98.5 09/16/17 15:00 89 20 111/75 99 Room Air 09/16/17 14:00 91 20 109/61 99 Room Air 09/16/17 13:00 90 20 110/65 99 Room Air 09/16/17 12:00 91 09/16/17 12:00 98.7 95 18 101/66 99 Room Air 98.7 09/16/17 11:00 97 20 117/61 99 Room Air 09/16/17 10:00 91 22 115/75 100 Room Air 09/16/17 09:00 101 16 105/64 100 Room Air 09/16/17 08:00 99.0 100 18 101/66 99 Room Air 99.0 09/16/17 08:00 101 09/16/17 04:00 99.0 102 20 101/66 99 Room Air 99.0 09/16/17 04:00 98 09/16/17 00:00 99.7 129 20 112/66 100 Room Air 99.7 09/15/17 23:23 107 09/15/17 22:13 129 103/62 100 Room Air 18 21:52 123 110/66 100 Room Air 15/18 21:46 120 118/80 100 Room Air 15/ 21:24 99.6 114 122/70 100 Room Air 99.6 09/15/17 21:08 121 123/94 98 Room Air 18 21:07 124 117/65 100 Room Air 15/18 21:05 117 117/76 100 Room Air 515/18 20:59 112 113/70 100 Room Air 515/18 20:54 111 107/71 100 Room Air 515/18 20:48 115 109/68 100 Room Air 515/18 20:43 112 97/77 98 Room Air 15/18 20:38 108 103/69 99 Room Air 515/18 20:36 112 515/18 20:33 119 98/64 99 Room Air 515/18 20:29 111 105/70 99 Room Air 515/18 20:27 111 101/74 100 Room Air 515/18 20:24 98.8 115 102/68 100 Room Air 98.8 15/18 20:21 111 107/68 100 Room Air 515/18 20:19 110 106/64 100 Room Air 5/15/18 20:18 117 103/73 100 Room Air 5/15/18 20:11 117 98/73 100 Room Air 515/18 20:08 126 110/65 100 Room Air 515/18 20:08 117 98/73 100 Room Air 5/15/18 20:00 115 95/68 100 Room Air 09/15/17 19:59 131 95/72 100 Room Air Intake and Output 09/15/17 09/16/17 19:00 07:00 Intake Total 910.0 ml Output Total 0 ml Balance 910.0 ml IV Total 660.0 ml Blood Product 250 ml Estimated Blood Loss 0 ml # Bowel Movements 6 9 Laboratory Tests Test 09/16/17 02:20 09/16/17 04:40 09/16/17 08:16 09/16/17 19:30 White Blood Count 10.2 K/UL (4.8-10.8) 11.2 K/UL (4.8-10.8) H 11.3 K/UL (4.8-10.8) H Pending Red Blood Count 1.71 M/UL (4.70-6.10) L 1.78 M/UL (4.70-6.10) L 1.76 M/UL (4.70-6.10) L Pending Hemoglobin 5.0 G/DL (14.2-18.0) 5.1 G/DL (14.2-18.0) *L 5.1 G/DL (14.2-18.0) *L Pending Hematocrit 14.8 % (42.0-52.0) L 15.7 % (42.0-52.0) L 15.5 % (42.0-52.0) L Pending Mean Corpuscular Volume 86 FL (80-99) 88 FL (80-99) 88 FL (80-99) Pending Mean Corpuscular Hemoglobin 29.3 PG (27.0-31.0) 28.9 PG (27.0-31.0) 29.3 PG (27.0-31.0) Pending Mean Corpuscular Hemoglobin Concent 33.9 G/DL (32.0-36.0) 32.6 G/DL (32.0-36.0) 33.2 G/DL (32.0-36.0) Pending Red Cell Distribution Width 12.4 % (11.6-14.8) 14.5 % (11.6-14.8) 15.9 % (11.6-14.8) H Pending Platelet Count 115 K/UL (150-450) L 119 K/UL (150-450) L 135 K/UL (150-450) L Pending Mean Platelet Volume 6.7 FL (6.5-10.1) 6.8 FL (6.5-10.1) 7.0 FL (6.5-10.1) Pending Neutrophils (%) (Auto) % (45.0-75.0) % (45.0-75.0) % (45.0-75.0) Pending Lymphocytes (%) (Auto) % (20.0-45.0) % (20.0-45.0) % (20.0-45.0) Pending Monocytes (%) (Auto) % (1.0-10.0) % (1.0-10.0) % (1.0-10.0) Pending Eosinophils (%) (Auto) % (0.0-3.0) % (0.0-3.0) % (0.0-3.0) Pending Basophils (%) (Auto) % (0.0-2.0) % (0.0-2.0) % (0.0-2.0) Pending Differential Total Cells Counted 100 100 Neutrophils % (Manual) 63 % (45-75) 64 % (45-75) Lymphocytes % (Manual) 23 % (20-45) 24 % (20-45) Monocytes % (Manual) 12 % (1-10) H 9 % (1-10) Eosinophils % (Manual) 0 % (0-3) 0 % (0-3) Basophils % (Manual) 0 % (0-2) 1 % (0-2) Band Neutrophils 2 % (0-8) 2 % (0-8) Platelet Estimate Decreased L Decreased L Platelet Morphology Normal Normal Polychromasia 2+ 2+ Anisocytosis 1+ 1+ Nucleated Red Blood Cells 1 /100 WBC Prothrombin Time Pending Prothromb Time International Ratio Pending Activated Partial Thromboplast Time Pending Sodium Level Pending Potassium Level Pending Chloride Level Pending Carbon Dioxide Level Pending Blood Urea Nitrogen Pending Creatinine Pending Estimat Glomerular Filtration Rate Pending Glucose Level Pending Calcium Level Pending Total Bilirubin Pending Aspartate Amino Transf (AST/SGOT) Pending Alanine Aminotransferase (ALT/SGPT) Pending Alkaline Phosphatase Pending Total Protein Pending Albumin Pending Globulin Pending Height (Feet): 5 Height (Inches): 7.00 Weight (Pounds): 147 Medications Current Medications Medications (Trade) Dose Ordered Sig/Carmen Route PRN Reason Start Time Stop Time Status Last Admin Dose Admin Acetaminophen/ Hydrocodone Bitart ([place] 10/325) 1 tab Q4H PRN ORAL For Pain 09/16/17 09:45 09/20/17 21:44 Pantoprazole (Protonix) 40 mg DAILY ORAL 09/16/17 09:00 10/15/17 08:59 09/16/17 09:00 Piperacillin Sod/ Tazobactam Sod 3.375 gm/Dextrose 110 ml @ 27.5 mls/hr EVERY 8 HOURS IVPB 09/16/17 14:00 09/17/17 23:59 09/16/17 14:00 Sodium Chloride 1,000 ml @ 100 mls/hr Q10H IV 09/16/17 08:15 10/15/17 15:59 09/16/17 09:00 Assessment/Plan Problem List: (1) GI bleed Assessment & Plan: severe anemia with GI bleeding; uncontrolled transfused 4 units initially and now being transfused another 4 after persistent bleeding upper and lower endo without identification of etiology -to OR now for exploration. unlikely to find etiology but will need to at least attempt with intraoperative endoscopy. -long discussion with patient and family. needs central line NOW. consent transfuse ICD Codes: K92.2 - Gastrointestinal hemorrhage, unspecified SNOMED: [id number] Status: progressing Mic Marks September 16, 2017 20:06
--- NOTE | 2017-09-16 20:07 | Pre-Procedure Note/Attestation ---
Pre-Procedure Note/Attestation Complete Prior to Procedure Planned Procedure: not applicable Procedure Narrative: EGD, diagnostic laparoscopy, possible exploratory laparotomy, possible intraoperative endoscopy, possible bowel resection. Indications for Procedure Pre-Operative Diagnosis: severe anemia. upper gi bleed Attestation I attest that I discussed the nature of the procedure; its benefits; risks and complications; and alternatives (and the risks and benefits of such alternatives ), prior to the procedure, with the patient (or the patient's legal manufacturers representative). I attest that, if there was a reasonable possibility of needing a blood transfusion, the patient (or the patient's legal manufacturers representative) was given the [place] Department [employer] standardized written summary, pursuant to the [place] Blood Safety Act ([place] Health and Safety Code # 1645, as amended). I attest that I re-evaluated the patient just prior to the surgery and that there has been no change in the patient's H&P, except as documented below: Mic Marks September 16, 2017 20:07
[2017-09-16 20:10] LABS: ALANINE AMINOTRANSFERASE 34 U/L (12-78); ALBUMIN 1.4 G/DL (3.4-5.0); ALBUMIN/GLOBULIN RATIO 0.7 (1.0-2.7); ALKALINE PHOSPHATASE 24 U/L (46-116); ASPARTATE AMINO TRANSFERASE 17 U/L (15-37); BILIRUBIN,TOTAL 0.3 MG/DL (0.2-1.0)
--- NOTE | 2017-09-16 20:28 | General Progress Note ---
Assessment/Plan Assessment/Plan Assessment - Massive GIB,? source, ? Meckels, negative EGD, negative Colon (but with small bowel blood) - Severe anemia - hypovolemic shock - critical Recommendations - NPO - IVF - transfuse rapid protocol - central line in - KCL - watch coagulation dilution - therapeutic laparoscopy-endoscopy in OR tonight Subjective Allergies: Coded Allergies: No Known Allergies (Verified , 06/03/09) Subjective seen in am and again now bleeding rapidly got 3 units RBC this am and 4 just now H&H noted discussed with radiology - IR angio not available at [facility] capsule endoscopy just completed but needs to download - RN inclusion internship coming in to download patient initially scheduled for EGD/Push entero, but after d/w surgery, decided to combine intraoperative intervention mesenteric CT angio an option, but not therapeutic, and patient appears too unstable for radiographic evaluation all planned procedures explained to patient High risk scenario clear to patient Objective Last 24 Hour Vital Signs Date Time Temp Pulse Resp B/P (MAP) Pulse Ox O2 Delivery O2 Flow Rate FiO2 09/16/17 16:00 89 09/16/17 16:00 98.5 87 18 124/72 100 Room Air 98.5 09/16/17 15:00 89 20 111/75 99 Room Air 09/16/17 14:00 91 20 109/61 99 Room Air 09/16/17 13:00 90 20 110/65 99 Room Air 09/16/17 12:00 91 09/16/17 12:00 98.7 95 18 101/66 99 Room Air 98.7 09/16/17 11:00 97 20 117/61 99 Room Air 09/16/17 10:00 91 22 115/75 100 Room Air 09/16/17 09:00 101 16 105/64 100 Room Air 09/16/17 08:00 99.0 100 18 101/66 99 Room Air 99.0 09/16/17 08:00 101 09/16/17 04:00 99.0 102 20 101/66 99 Room Air 99.0 09/16/17 04:00 98 09/16/17 00:00 99.7 129 20 112/66 100 Room Air 99.7 09/15/17 23:23 107 09/15/17 22:13 129 103/62 100 Room Air 09/15/17 21:52 123 110/66 100 Room Air 09/15/17 21:46 120 118/80 100 Room Air 09/15/17 21:24 99.6 114 122/70 100 Room Air 99.6 09/15/17 21:08 121 123/94 98 Room Air 09/15/17 21:07 124 117/65 100 Room Air 09/15/17 21:05 117 117/76 100 Room Air 09/15/17 20:59 112 113/70 100 Room Air 09/15/17 20:54 111 107/71 100 Room Air 09/15/17 20:48 115 109/68 100 Room Air 09/15/17 20:43 112 97/77 98 Room Air 09/15/17 20:38 108 103/69 99 Room Air 09/15/17 20:36 112 09/15/17 20:33 119 98/64 99 Room Air 09/15/17 20:29 111 105/70 99 Room Air 09/15/17 20:27 111 101/74 100 Room Air 09/15/17 20:24 98.8 115 102/68 100 Room Air 98.8 09/15/17 20:21 111 107/68 100 Room Air Intake and Output 09/15/17 09/16/17 19:00 07:00 Intake Total 910.0 ml Output Total 0 ml Balance 910.0 ml IV Total 660.0 ml Blood Product 250 ml Estimated Blood Loss 0 ml # Bowel Movements 6 9 Laboratory Tests 09/16/17 02:20: White Blood Count 10.2, Red Blood Count 1.71L, Hemoglobin 5.0#*L, Hematocrit 14.8L, Mean Corpuscular Volume 86, Mean Corpuscular Hemoglobin 29.3, Mean Corpuscular Hemoglobin Concent 33.9, Red Cell Distribution Width 12.4, Platelet Count 115L, Mean Platelet Volume 6.7, Neutrophils (%) (Auto) , Lymphocytes (%) ( Auto) , Monocytes (%) (Auto) , Eosinophils (%) (Auto) , Basophils (%) (Auto) 09/16/17 04:40: White Blood Count 11.2H, Red Blood Count 1.78L, Hemoglobin 5.1*L, Hematocrit 15.7L, Mean Corpuscular Volume 88, Mean Corpuscular Hemoglobin 28.9, Mean Corpuscular Hemoglobin Concent 32.6, Red Cell Distribution Width 14.5, Platelet Count 119L, Mean Platelet Volume 6.8, Neutrophils (%) (Auto) , Lymphocytes (%) ( Auto) , Monocytes (%) (Auto) , Eosinophils (%) (Auto) , Basophils (%) (Auto) , Differential Total Cells Counted 100, Neutrophils % (Manual) 63, Lymphocytes % ( Manual) 23, Monocytes % (Manual) 12H, Eosinophils % (Manual) 0, Basophils % ( Manual) 0, Band Neutrophils 2, Platelet Estimate DecreasedL, Platelet Morphology Normal, Polychromasia 2+, Anisocytosis 1+ 09/16/17 08:16: White Blood Count 11.3H, Red Blood Count 1.76L, Hemoglobin 5.1*L, Hematocrit 15.5L, Mean Corpuscular Volume 88, Mean Corpuscular Hemoglobin 29.3, Mean Corpuscular Hemoglobin Concent 33.2, Red Cell Distribution Width 15.9H, Platelet Count 135L, Mean Platelet Volume 7.0, Neutrophils (%) (Auto) , Lymphocytes (%) (Auto) , Monocytes (%) (Auto) , Eosinophils (%) (Auto) , Basophils (%) (Auto) , Differential Total Cells Counted 100, Neutrophils % ( Manual) 64, Lymphocytes % (Manual) 24, Monocytes % (Manual) 9, Eosinophils % ( Manual) 0, Basophils % (Manual) 1, Band Neutrophils 2, Platelet Estimate DecreasedL, Platelet Morphology Normal, Polychromasia 2+, Anisocytosis 1+, Nucleated Red Blood Cells 1 09/16/17 19:30: White Blood Count 23.1#*H, Red Blood Count 2.37L, Hemoglobin 7.2#L, Hematocrit 20.5#L, Mean Corpuscular Volume 87, Mean Corpuscular Hemoglobin 30.6, Mean Corpuscular Hemoglobin Concent 35.3, Red Cell Distribution Width 14.4, Platelet Count 119L, Mean Platelet Volume 7.0, Neutrophils (%) (Auto) , Lymphocytes (%) ( Auto) , Monocytes (%) (Auto) , Eosinophils (%) (Auto) , Basophils (%) (Auto) , Neutrophils % (Manual) [Pending], Lymphocytes % (Manual) [Pending], Platelet Estimate [Pending], Platelet Morphology [Pending], Prothrombin Time 10.1, Prothromb Time International Ratio 1.0, Activated Partial Thromboplast Time 30, Sodium Level 140, Potassium Level 3.1L, Chloride Level 112H, Carbon Dioxide Level 18L, Anion Gap 10, Blood Urea Nitrogen 12, Creatinine 0.7, Estimat Glomerular Filtration Rate > 60, Glucose Level 149H, Calcium Level 6.3L, Total Bilirubin 0.3, Aspartate Amino Transf (AST/SGOT) 17, Alanine Aminotransferase ( ALT/SGPT) 34, Alkaline Phosphatase 24L, Total Protein 3.3L, Albumin 1.4L, Globulin 1.9, Albumin/Globulin Ratio 0.7L Height (Feet): 5 Height (Inches): 7.00 Weight (Pounds): 147 Objective Pale in ICU tachy BP better after 4 units CTA RR/tachy abd soft NT ND no edema mentating Jony Busch MD September 16, 2017 20:28
[2017-09-16] MEDS ORDERED: Midazolam 2mg/2ml Inj ONE (20:42)
[2017-09-16] MEDS ORDERED: Succinylcholine 20mg/ml 10ml vial ONE (20:42)
[2017-09-16] MEDS ORDERED: Propofol 200mg/20ml IV ONE (20:42)
[2017-09-16] MEDS ORDERED: Zemuron 50mg/5ml Inj IV ONE ×3 (20:42→22:35)
[2017-09-16] MEDS ORDERED: Bacitracin 50000 Units Vial ONE (20:42)
[2017-09-16] MEDS ORDERED: fentaNYL 100 mcg/2 mL IV ONE ×2 (20:42→21:58)
[2017-09-16] MEDS ORDERED: NeoSporin Gu Irrig 1ml Amp IRRIG ONE (20:43)
[2017-09-16 20:56] LABS: HEMATOCRIT 31.3 % (42.0-52.0); HEMOGLOBIN 10.8 G/DL (14.2-18.0); MEAN CORPUSCULAR VOLUME 86 FL (80-99); PLATELET COUNT 66 K/UL (150-450); RED BLOOD COUNT 3.64 M/UL (4.70-6.10); RED CELL DISTRIBUTION WIDTH 12.1 % (11.6-14.8); WHITE BLOOD COUNT 16.1 K/UL (4.8-10.8)
[2017-09-16] MEDS ORDERED: Phenylephrine 10mg/ml Vial ONE (21:00)
[2017-09-16] MEDS ORDERED: NS 275ml ONE (22:18)
--- NOTE | 2017-09-16 22:24 | Anethesia Preoperative Eval ---
Anesthesia Pre-op PMH/ROS General Date of Evaluation: September 16, 2017 Time of Evaluation: 20:40 Anesthesiologist: Ric ASA Score: ASA 2 Mallampati Score Class I : Soft palate, uvula, fauces, pillars visible Class II: Soft palate, uvula, fauces visible Class III: Soft palate, base of uvula visible Class IV: Only hard plate visible Mallampati Classification: Class II Surgeon: Shanice Diagnosis: GI bleed Surgical Procedure: Diagnostic laparoscopy Anesthesia History: none Family History: no anesthesia problems Allergies: Coded Allergies: No Known Allergies (Verified , 06/03/09) Past Medical History Cardiovascular: Denies: HTN, CAD, MD, valve dz, arrhythmia, other Pulmonary: Denies: asthma, COPD, [place], other Gastrointestinal/Genitourinary: Reports: GERD; Denies: CRI, ESRD, other Neurologic/Psychiatric: Denies: dementia, CVA, depression/anxiety, TIA, other Endocrine: Denies: DM, hypothyroidism, steroids, other HEENT: Denies: cataract (L), cataract (R), glaucoma, [place] (L), [place] (R), other Hematology/Immune: Reports: anemia - severe hemorrhagic anemia; Denies: DVT, bleeding disorder, other Musculoskeletal/Integumentary: Denies: OA, RA, DJD, DDD, edema, other PMH Narrative: admitted for acute GI bleed severe anemia, massive transfusion, no improvement PSxH Narrative: none Anesthesia Pre-op Phys. Exam Physician Exam Last Vital Signs Date Time Temp Pulse Resp B/P (MAP) Pulse Ox O2 Delivery O2 Flow Rate FiO2 09/16/17 20:30 99 18 139/99 100 Room Air 09/16/17 19:30 98.3 2.0 98.3 Constitutional: other - sedated Neurologic: CN 2-12 intact Cardiovascular: RRR, no M/R/G, other - tachicardia Gastrointestinal: other - distended Airway Exam Mallampati Score: Class II MO: limited Neck: stiff ROM: limited Teeth: intact Dentures: no upper, no lower Anesthesia Pre-op A/P Labs Hematology Test 09/16/17 02:20 09/16/17 04:40 09/16/17 08:16 09/16/17 19:30 White Blood Count 10.2 K/UL (4.8-10.8) 11.2 K/UL (4.8-10.8) H 11.3 K/UL (4.8-10.8) H 23.1 K/UL (4.8-10.8) #*H Red Blood Count 1.71 M/UL (4.70-6.10) L 1.78 M/UL (4.70-6.10) L 1.76 M/UL (4.70-6.10) L 2.37 M/UL (4.70-6.10) L Hemoglobin 5.0 G/DL (14.2-18.0) 5.1 G/DL (14.2-18.0) *L 5.1 G/DL (14.2-18.0) *L 7.2 G/DL (14.2-18.0) #L Hematocrit 14.8 % (42.0-52.0) L 15.7 % (42.0-52.0) L 15.5 % (42.0-52.0) L 20.5 % (42.0-52.0) #L Mean Corpuscular Volume 86 FL (80-99) 88 FL (80-99) 88 FL (80-99) 87 FL ( 80-99) Mean Corpuscular Hemoglobin 29.3 PG (27.0-31.0) 28.9 PG (27.0-31.0) 29.3 PG (27.0-31.0) 30.6 PG (27.0-31.0) Mean Corpuscular Hemoglobin Concent 33.9 G/DL (32.0-36.0) 32.6 G/DL (32.0-36.0) 33.2 G/DL (32.0-36.0) 35.3 G/DL (32.0-36.0) Red Cell Distribution Width 12.4 % (11.6-14.8) 14.5 % (11.6-14.8) 15.9 % (11.6-14.8) H 14.4 % (11.6-14.8) Platelet Count 115 K/UL (150-450) L 119 K/UL (150-450) L 135 K/UL (150-450) L 119 K/UL (150-450) L Mean Platelet Volume 6.7 FL (6.5-10.1) 6.8 FL (6.5-10.1) 7.0 FL (6.5-10.1) 7.0 FL (6.5-10.1) Neutrophils (%) (Auto) % (45.0-75.0) % (45.0-75.0) % (45.0-75.0) % (45.0-75.0) Lymphocytes (%) (Auto) % (20.0-45.0) % (20.0-45.0) % (20.0-45.0) % (20.0-45.0) Monocytes (%) (Auto) % (1.0-10.0) % (1.0-10.0) % (1.0-10.0) % (1.0- 10.0) Eosinophils (%) (Auto) % (0.0-3.0) % (0.0-3.0) % (0.0-3.0) % (0.0-3.0 ) Basophils (%) (Auto) % (0.0-2.0) % (0.0-2.0) % (0.0-2.0) % (0.0-2.0) Differential Total Cells Counted 100 100 100 Neutrophils % (Manual) 63 % (45-75) 64 % (45-75) 75 % (45-75) Lymphocytes % (Manual) 23 % (20-45) 24 % (20-45) 15 % (20-45) L Monocytes % (Manual) 12 % (1-10) H 9 % (1-10) 9 % (1-10) Eosinophils % (Manual) 0 % (0-3) 0 % (0-3) 0 % (0-3) Basophils % (Manual) 0 % (0-2) 1 % (0-2) 1 % (0-2) Band Neutrophils 2 % (0-8) 2 % (0-8) 0 % (0-8) Platelet Estimate Decreased L Decreased L Decreased L Platelet Morphology Normal Normal Normal Polychromasia 2+ 2+ 1+ Anisocytosis 1+ 1+ 1+ Nucleated Red Blood Cells 1 /100 WBC Hypochromasia 2+ Test 09/16/17 20:40 White Blood Count 16.1 K/UL (4.8-10.8) H Red Blood Count 3.64 M/UL (4.70-6.10) L Hemoglobin 10.8 G/DL (14.2-18.0) #L Hematocrit 31.3 % (42.0-52.0) #L Mean Corpuscular Volume 86 FL (80-99) Mean Corpuscular Hemoglobin 29.6 PG (27.0-31.0) Mean Corpuscular Hemoglobin Concent 34.5 G/DL (32.0-36.0) Red Cell Distribution Width 12.1 % (11.6-14.8) Platelet Count 66 K/UL (150-450) L Mean Platelet Volume 7.3 FL (6.5-10.1) Neutrophils (%) (Auto) % (45.0-75.0) Lymphocytes (%) (Auto) % (20.0-45.0) Monocytes (%) (Auto) % (1.0-10.0) Eosinophils (%) (Auto) % (0.0-3.0) Basophils (%) (Auto) % (0.0-2.0) Differential Total Cells Counted 100 Neutrophils % (Manual) 80 % (45-75) H Lymphocytes % (Manual) 11 % (20-45) L Monocytes % (Manual) 8 % (1-10) Eosinophils % (Manual) 0 % (0-3) Basophils % (Manual) 1 % (0-2) Band Neutrophils 0 % (0-8) Platelet Estimate Decreased L Platelet Morphology Normal Hypochromasia 1+ Anisocytosis 1+ Coagulation Test 09/16/17 19:30 Prothrombin Time 10.1 SEC (9.30-11.50) Prothromb Time International Ratio 1.0 (0.9-1.1) Activated Partial Thromboplast Time 30 SEC (23-33) Chemistry Test 09/16/17 19:30 Sodium Level 140 MMOL/L (136-145) Potassium Level 3.1 MMOL/L (3.5-5.1) L Chloride Level 112 MMOL/L (98-107) H Carbon Dioxide Level 18 MMOL/L (21-32) L Anion Gap 10 mmol/L (5-15) Blood Urea Nitrogen 12 mg/dL (7-18) Creatinine 0.7 MG/DL (0.55-1.30) Estimat Glomerular Filtration Rate > 60 mL/min (>60) Glucose Level 149 MG/DL (74-106) H Calcium Level 6.3 MG/DL (8.5-10.1) L Total Bilirubin 0.3 MG/DL (0.2-1.0) Aspartate Amino Transf (AST/SGOT) 17 U/L (15-37) Alanine Aminotransferase (ALT/SGPT) 34 U/L (12-78) Alkaline Phosphatase 24 U/L (46-116) L Total Protein 3.3 G/DL (6.4-8.2) L Albumin 1.4 G/DL (3.4-5.0) L Globulin 1.9 g/dL Albumin/Globulin Ratio 0.7 (1.0-2.7) L Risk Assessment & Plan Assessment: ASA 2 E. Plan: GA with ETT ICU care postoperatively, respiratory support Status Change Before Surgery: No Pre-Antibiotics Drug: as scheduled Hernando Larios MD September 16, 2017 22:24
[2017-09-16] MEDS ORDERED: LORazepam Inj 2mg/ml 1ml IV PRN ×2 (22:30→23:45)
[2017-09-16] MEDS ORDERED: DiphenhydrAMINE 50mg/ml Inj IVP PRN ×2 (22:30→23:45)
[2017-09-16] MEDS ORDERED: fentaNYL 100 mcg/2 mL IV PRN (22:30)
--- NOTE | 2017-09-16 23:47 | Brief Operative Note ---
Immediate Post Operative Note Operative Note Pre-op Diagnosis: severe anemia. upper gi bleed Procedure: diagnostic laparoscopy exploratory laparotomy small bowel resection with primary anastomosis central venous catheter placement Post-op Diagnosis: small bowel tumor Surgeon: parag Anesthesiologist: barb Anesthesia: general Specimen: yes Complications: none Condition: stable Fluids: see records Estimated Blood Loss: volume - 50 Drains: none Implant(s) used?: No Mic Marks September 16, 2017 23:47
[2017-09-16] MEDS: LR 1000ml 1,000 ML IV SCH (23:54)
[2017-09-17] VITALS (31 sets, daily range): BP systolic 113–144; BP diastolic 65–110
[2017-09-17] MEDS: Morphine Sulfate 4mg/ml Inj IVP PRN ×5 (00:55→19:22)
[2017-09-17] MEDS: Piperacillin/Tazobactam 3.375 GM in D5W 110 ML IVPB SCH ×3 (02:44→19:11)
[2017-09-17] MEDS ORDERED: Midazolam 2mg/2ml Inj IVP SCH (03:30)
--- NOTE | 2017-09-17 07:57 | General Progress Note ---
Assessment/Plan Problem List: (1) Colitis ICD Codes: K52.9 - Noninfective gastroenteritis and colitis, unspecified SNOMED: 08022035 (2) Anemia ICD Codes: D64.9 - Anemia, unspecified SNOMED: 996485126 Qualifiers: Status: stable Assessment/Plan follow up labs wean vent resp rx pain rx PPI iv abx critical and guarded Subjective ROS Limited/Unobtainable: No Constitutional: Reports: malaise, weakness HEENT: Reports: no symptoms Cardiovascular: Reports: no symptoms Respiratory: Reports: no symptoms Gastrointestinal/Abdominal: Reports: abdomen distended Genitourinary: Reports: no symptoms Neurologic/Psychiatric: Reports: no symptoms Endocrine: Reports: no symptoms Hematologic/Lymphatic: Reports: anemia Allergies: Coded Allergies: No Known Allergies (Verified , 06/03/09) All Systems: reviewed and negative except above Subjective underwent emergent lapratomy last night for massive gib. source coulf not be identified via endoscopy. ?tumor resected from small bowel. vitals stable. no further bleeding noted. Objective Last 24 Hour Vital Signs Date Time Temp Pulse Resp B/P (MAP) Pulse Ox O2 Delivery O2 Flow Rate FiO2 09/17/17 07:35 106 17 30 09/17/17 07:34 100 09/17/17 07:29 30 09/17/17 07:25 93 14 40 09/17/17 07:00 114 14 137/70 100 Mechanical Ventilator 30 09/17/17 06:00 97 14 129/72 100 Mechanical Ventilator 50 09/17/17 06:00 20 09/17/17 05:00 97 14 122/77 100 Mechanical Ventilator 50 09/17/17 05:00 18 09/17/17 04:53 97 14 40 09/17/17 04:00 100 09/17/17 04:00 98.8 101 14 122/79 100 Mechanical Ventilator 50 98.8 09/17/17 04:00 19 09/17/17 03:00 18 09/17/17 03:00 103 17 132/82 100 Mechanical Ventilator 50 09/17/17 02:54 103 17 30 09/17/17 02:00 104 17 134/84 100 Mechanical Ventilator 50 09/17/17 02:00 18 09/17/17 01:20 105 18 40 09/17/17 01:03 18 09/17/17 01:00 98.7 105 18 136/90 100 Mechanical Ventilator 50 98.7 09/17/17 00:15 111 18 144/110 100 Mechanical Ventilator 50 09/17/17 00:10 111 18 135/94 100 Mechanical Ventilator 50 09/17/17 00:05 113 18 138/98 100 Mechanical Ventilator 50 09/17/17 00:00 107 09/17/17 00:00 116 14 140/102 100 Mechanical Ventilator 50 09/16/17 23:55 112 14 161/117 100 Mechanical Ventilator 50 09/16/17 23:51 111 14 Mechanical Ventilator 50 18 23:50 110 14 155/100 100 Mechanical Ventilator 50 09/16/17 23:45 110 14 154/100 100 Mechanical Ventilator 50 09/16/17 23:41 111 14 50 09/16/17 23:40 111 14 156/105 100 Mechanical Ventilator 50 09/16/17 23:35 116 14 149/86 100 Mechanical Ventilator 50 09/16/17 23:30 98.8 118 18 155/97 100 Mechanical Ventilator 50 98.8 09/16/17 20:30 99 18 139/99 100 Room Air 09/16/17 20:00 102 09/16/17 20:00 104 18 125/87 20 Room Air 09/16/17 19:30 105 18 116/60 99 Room Air 09/16/17 19:30 98.3 118 19 115/76 99 Nasal Cannula 2.0 98.3 09/16/17 19:00 115 18 120/80 99 Room Air 09/16/17 18:00 80 20 111/75 99 Room Air 09/16/17 17:00 89 20 111/75 99 Room Air 09/16/17 16:00 89 09/16/17 16:00 98.5 87 18 124/72 100 Room Air 98.5 09/16/17 15:00 89 20 111/75 99 Room Air 09/16/17 14:00 91 20 109/61 99 Room Air 09/16/17 13:00 90 20 110/65 99 Room Air 09/16/17 12:00 91 09/16/17 12:00 98.7 95 18 101/66 99 Room Air 98.7 09/16/17 11:00 97 20 117/61 99 Room Air 09/16/17 10:00 91 22 115/75 100 Room Air 09/16/17 09:00 101 16 105/64 100 Room Air 09/16/17 08:00 99.0 100 18 101/66 99 Room Air 99.0 09/16/17 08:00 101 Intake and Output 09/16/17 09/17/17 19:00 07:00 Intake Total 727.5 ml 488.5 ml Output Total 800 ml 450 ml Balance -72.5 ml 38.5 ml IV Total 727.5 ml 488.5 ml Output Urine Total 800 ml 450 ml # Bowel Movements 4 2 Laboratory Tests 09/16/17 08:16: White Blood Count 11.3H, Red Blood Count 1.76L, Hemoglobin 5.1*L, Hematocrit 15.5L, Mean Corpuscular Volume 88, Mean Corpuscular Hemoglobin 29.3, Mean Corpuscular Hemoglobin Concent 33.2, Red Cell Distribution Width 15.9H, Platelet Count 135L, Mean Platelet Volume 7.0, Neutrophils (%) (Auto) , Lymphocytes (%) (Auto) , Monocytes (%) (Auto) , Eosinophils (%) (Auto) , Basophils (%) (Auto) , Differential Total Cells Counted 100, Neutrophils % ( Manual) 64, Lymphocytes % (Manual) 24, Monocytes % (Manual) 9, Eosinophils % ( Manual) 0, Basophils % (Manual) 1, Band Neutrophils 2, Nucleated Red Blood Cells 1, Platelet Estimate DecreasedL, Platelet Morphology Normal, Polychromasia 2+, Anisocytosis 1+ 09/16/17 19:30: White Blood Count 23.1#*H, Red Blood Count 2.37L, Hemoglobin 7.2#L, Hematocrit 20.5#L, Mean Corpuscular Volume 87, Mean Corpuscular Hemoglobin 30.6, Mean Corpuscular Hemoglobin Concent 35.3, Red Cell Distribution Width 14.4, Platelet Count 119L, Mean Platelet Volume 7.0, Neutrophils (%) (Auto) , Lymphocytes (%) ( Auto) , Monocytes (%) (Auto) , Eosinophils (%) (Auto) , Basophils (%) (Auto) , Differential Total Cells Counted 100, Neutrophils % (Manual) 75, Lymphocytes % ( Manual) 15L, Monocytes % (Manual) 9, Eosinophils % (Manual) 0, Basophils % ( Manual) 1, Band Neutrophils 0, Platelet Estimate DecreasedL, Platelet Morphology Normal, Polychromasia 1+, Anisocytosis 1+, Hypochromasia 2+, Prothrombin Time 10.1, Prothromb Time International Ratio 1.0, Activated Partial Thromboplast Time 30, Sodium Level 140, Potassium Level 3.1L, Chloride Level 112H, Carbon Dioxide Level 18L, Anion Gap 10, Blood Urea Nitrogen 12, Creatinine 0.7, Estimat Glomerular Filtration Rate > 60, Glucose Level 149H, Calcium Level 6.3L, Total Bilirubin 0.3, Aspartate Amino Transf (AST/SGOT) 17, Alanine Aminotransferase (ALT/SGPT) 34, Alkaline Phosphatase 24L, Total Protein 3.3L, Albumin 1.4L, Globulin 1.9, Albumin/Globulin Ratio 0.7L 09/16/17 20:40: White Blood Count 16.1H, Red Blood Count 3.64L, Hemoglobin 10.8#L, Hematocrit 31.3#L, Mean Corpuscular Volume 86, Mean Corpuscular Hemoglobin 29.6, Mean Corpuscular Hemoglobin Concent 34.5, Red Cell Distribution Width 12.1, Platelet Count 66L, Mean Platelet Volume 7.3, Neutrophils (%) (Auto) , Lymphocytes (%) ( Auto) , Monocytes (%) (Auto) , Eosinophils (%) (Auto) , Basophils (%) (Auto) , Differential Total Cells Counted 100, Neutrophils % (Manual) 80H, Lymphocytes % (Manual) 11L, Monocytes % (Manual) 8, Eosinophils % (Manual) 0, Basophils % ( Manual) 1, Band Neutrophils 0, Platelet Estimate DecreasedL, Platelet Morphology Normal, Anisocytosis 1+, Hypochromasia 1+ 09/17/17 04:59: Arterial Blood pH 7.430, Arterial Blood Partial Pressure CO2 33.8L, Arterial Blood Partial Pressure O2 194.9H, Arterial Blood HCO3 21.9L, Arterial Blood Oxygen Saturation 97.7, Arterial Blood Base Excess -2.2, Kp Test Positive Height (Feet): 5 Height (Inches): 7.00 Weight (Pounds): 149 General Appearance: WD/WN, alert Neck: supple Cardiovascular: normal peripheral pulses, normal rate, regular rhythm Respiratory/Chest: chest wall non-tender, lungs clear, normal breath sounds Abdomen: decreased bowel sounds, distended 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
--- NOTE | 2017-09-17 08:11 | 48 Hour Post Anesthesia Eval ---
Post Anesthesia Evaluation Procedure: Ex lap bowel resection Date of Evaluation: September 17, 2017 Time of Evaluation: 08:09 Blood Pressure Systolic: 132 0: 78 Pulse Rate: 92 Respiratory Rate: 18 Temperature (Fahrenheit): 97.8 O2 Sat by Pulse Oximetry: 99 Airway: other - intubated Nausea: No Vomiting: No Pain Intensity: 1 Hydration Status: adequate Cardiopulmonary Status: no pressors, vent support Follow-up Care/Observations: n/a Post-Anesthesia Complications: none Follow-up care needed: N/A Hernando Larios MD September 17, 2017 08:11
[2017-09-17] MEDS: Pantoprazole Inj IVP SCH ×2 (08:29→21:06)
[2017-09-17] MEDS: LR 1000ml 1,000 ML IV SCH ×3 (08:30→19:55)
[2017-09-17 08:50] LABS: ALANINE AMINOTRANSFERASE 30 U/L (12-78); ALBUMIN 2.3 G/DL (3.4-5.0); ALKALINE PHOSPHATASE 37 U/L (46-116); ANION GAP 10 mmol/L (5-15); ASPARTATE AMINO TRANSFERASE 27 U/L (15-37); BILIRUBIN,TOTAL 0.8 MG/DL (0.2-1.0); BLOOD UREA NITROGEN 10 mg/dL (7-18); CALCIUM 7.2 MG/DL (8.5-10.1); CARBON DIOXIDE 23 MMOL/L (21-32); CHLORIDE 110 MMOL/L (98-107); CREATININE 0.8 MG/DL (0.55-1.30); POTASSIUM 3.5 MMOL/L (3.5-5.1); SODIUM 143 MMOL/L (136-145)
[2017-09-17 09:22] LABS: MEAN CORPUSCULAR VOLUME 86 FL (80-99); PLATELET COUNT 140 K/UL (150-450); RED BLOOD COUNT 1.97 M/UL (4.70-6.10); RED CELL DISTRIBUTION WIDTH 12.8 % (11.6-14.8); WHITE BLOOD COUNT 12.1 K/UL (4.8-10.8)
[2017-09-17 09:45] LABS: HEMOGLOBIN 5.9 G/DL (14.2-18.0)
--- NOTE | 2017-09-17 13:07 | Diagnostic Imaging Report ---
Indication: Post intubation and central line placement Technique: One view of the chest Comparison: 06/02/2009 Findings: Interim placement of right jugular central venous catheter, tip in good position at the cavoatrial junction on the second of 2 images, reportedly after retraction by the ED physician. There is an endotracheal tube in place, tip projected approximately 5 cm above the agnes. The lungs and pleural spaces remain clear. The heart size is normal. No pneumothorax Impression: Satisfactory endotracheal intubation. Satisfactory central line placement, no radiographically evident complication No acute pulmonary parenchymal disease
[2017-09-17 15:16] LABS: HEMATOCRIT 16.6 % (42.0-52.0); MEAN CORPUSCULAR VOLUME 86 FL (80-99); PLATELET COUNT 145 K/UL (150-450); RED BLOOD COUNT 1.91 M/UL (4.70-6.10); RED CELL DISTRIBUTION WIDTH 13.4 % (11.6-14.8); WHITE BLOOD COUNT 10.8 K/UL (4.8-10.8)
[2017-09-17 15:29] LABS: HEMOGLOBIN 5.7 G/DL (14.2-18.0)
[2017-09-17 15:40] LABS: ALANINE AMINOTRANSFERASE 26 U/L (12-78); ALBUMIN 2.2 G/DL (3.4-5.0); ALBUMIN/GLOBULIN RATIO 0.8 (1.0-2.7); ALKALINE PHOSPHATASE 34 U/L (46-116); ANION GAP 7 mmol/L (5-15); ASPARTATE AMINO TRANSFERASE 17 U/L (15-37); BILIRUBIN,TOTAL 0.8 MG/DL (0.2-1.0); BLOOD UREA NITROGEN 6 mg/dL (7-18); CALCIUM 7.1 MG/DL (8.5-10.1); CARBON DIOXIDE 26 MMOL/L (21-32); CHLORIDE 107 MMOL/L (98-107); CREATININE 0.7 MG/DL (0.55-1.30); POTASSIUM 3.2 MMOL/L (3.5-5.1); SODIUM 140 MMOL/L (136-145)
--- NOTE | 2017-09-17 16:43 | General Progress Note ---
Progress Note Progress Note Surgery: continues bleeding last night. taken to OR where abnormal mass noted on small bowel. likely etiology of bleeding. mass resected with sb and blood evacuated. since patient doing well. extubated this AM. comfortable. no n/v/f/c. very good urine output still anemia but bleeding seems to have stopped. abd exam okay -transfuse prbc -monitor -npo -will follow closely. Mic Marks September 17, 2017 16:43
--- NOTE | 2017-09-17 18:05 | General Progress Note ---
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 seen this am subsequently extubated H&H low transfusion orders given Objective Last 24 Hour Vital Signs Date Time Temp Pulse Resp B/P (MAP) Pulse Ox O2 Delivery O2 Flow Rate FiO2 09/17/17 17:00 87 17 113/75 100 Nasal Cannula 2.0 09/17/17 16:00 98.5 89 15 118/75 100 Nasal Cannula 2.0 98.5 09/17/17 16:00 97 09/17/17 16:00 2.0 09/17/17 15:00 92 16 113/79 100 Nasal Cannula 2.0 09/17/17 14:00 92 16 115/77 100 Nasal Cannula 2.0 09/17/17 13:00 94 20 122/74 100 Nasal Cannula 2.0 09/17/17 12:00 98.2 95 18 121/73 100 Nasal Cannula 2.0 98.2 09/17/17 12:00 2.0 09/17/17 12:00 103 09/17/17 11:00 99 17 117/70 100 Nasal Cannula 2.0 09/17/17 10:30 99 18 119/69 100 Nasal Cannula 2.0 09/17/17 10:00 98 19 127/80 100 Nasal Cannula 2.0 09/17/17 09:53 100 Nasal Cannula 2.0 28 09/17/17 09:53 Nasal Cannula 2.0 28 09/17/17 09:50 Nasal Cannula 2.0 28 09/17/17 09:47 101 19 09/17/17 09:45 2.0 09/17/17 09:30 99 19 129/79 100 Mechanical Ventilator 30 09/17/17 09:00 100 15 121/78 100 Mechanical Ventilator 30 09/17/17 08:56 106 13 30 09/17/17 08:30 101 15 126/77 100 Mechanical Ventilator 30 09/17/17 08:11 208.0 92 18 99 09/17/17 08:00 30 5/17/18 08:00 100 5/17/18 08:00 98.8 102 15 137/80 100 Mechanical Ventilator 30 98.8 5/17/18 07:35 106 17 30 5/17/18 07:34 100 5/17/18 07:30 105 17 124/80 100 Mechanical Ventilator 30 5/17/18 07:29 30 5/17/18 07:25 93 14 40 5/17/18 07:00 114 14 137/70 100 Mechanical Ventilator 30 5/17/18 06:00 97 14 129/72 100 Mechanical Ventilator 50 5/17/18 06:00 20 5/17/18 05:00 97 14 122/77 100 Mechanical Ventilator 50 5/17/18 05:00 18 5/17/18 04:53 97 14 40 5/17/18 04:00 100 5/17/18 04:00 98.8 101 14 122/79 100 Mechanical Ventilator 50 98.8 517/18 04:00 19 5/17/18 03:00 18 5/17/18 03:00 103 17 132/82 100 Mechanical Ventilator 50 517/18 02:54 103 17 30 5/17/18 02:00 104 17 134/84 100 Mechanical Ventilator 50 517/18 02:00 18 5/17/18 01:20 105 18 40 5/17/18 01:03 18 517/18 01:00 98.7 105 18 136/90 100 Mechanical Ventilator 50 98.7 5/17/18 00:15 111 18 144/110 100 Mechanical Ventilator 50 5/17/18 00:10 111 18 135/94 100 Mechanical Ventilator 50 5/17/18 00:05 113 18 138/98 100 Mechanical Ventilator 50 5/17/18 00:00 107 5/17/18 00:00 116 14 140/102 100 Mechanical Ventilator 50 5/16/18 23:55 112 14 161/117 100 Mechanical Ventilator 50 5/16/18 23:51 111 14 Mechanical Ventilator 50 5/16/18 23:50 110 14 155/100 100 Mechanical Ventilator 50 5/16/18 23:45 110 14 154/100 100 Mechanical Ventilator 50 5/16/18 23:41 111 14 50 5/16/18 23:40 111 14 156/105 100 Mechanical Ventilator 50 5/16/18 23:35 116 14 149/86 100 Mechanical Ventilator 50 5/16/18 23:30 98.8 118 18 155/97 100 Mechanical Ventilator 50 98.8 09/16/17 20:30 99 18 139/99 100 Room Air 09/16/17 20:00 102 09/16/17 20:00 104 18 125/87 20 Room Air 09/16/17 19:30 105 18 116/60 99 Room Air 09/16/17 19:30 98.3 118 19 115/76 99 Nasal Cannula 2.0 98.3 09/16/17 19:00 115 18 120/80 99 Room Air Intake and Output 09/16/17 09/17/17 19:00 07:00 Intake Total 727.5 ml 488.5 ml Output Total 800 ml 650 ml Balance -72.5 ml -161.5 ml IV Total 727.5 ml 488.5 ml Output Urine Total 800 ml 650 ml # Bowel Movements 4 2 Laboratory Tests 09/16/17 19:30: White Blood Count 23.1#*H, Red Blood Count 2.37L, Hemoglobin 7.2#L, Hematocrit 20.5#L, Mean Corpuscular Volume 87, Mean Corpuscular Hemoglobin 30.6, Mean Corpuscular Hemoglobin Concent 35.3, Red Cell Distribution Width 14.4, Platelet Count 119L, Mean Platelet Volume 7.0, Neutrophils (%) (Auto) , Lymphocytes (%) ( Auto) , Monocytes (%) (Auto) , Eosinophils (%) (Auto) , Basophils (%) (Auto) , Differential Total Cells Counted 100, Neutrophils % (Manual) 75, Lymphocytes % ( Manual) 15L, Monocytes % (Manual) 9, Eosinophils % (Manual) 0, Basophils % ( Manual) 1, Band Neutrophils 0, Platelet Estimate DecreasedL, Platelet Morphology Normal, Polychromasia 1+, Hypochromasia 2+, Anisocytosis 1+, Prothrombin Time 10.1, Prothromb Time International Ratio 1.0, Activated Partial Thromboplast Time 30, Sodium Level 140, Potassium Level 3.1L, Chloride Level 112H, Carbon Dioxide Level 18L, Anion Gap 10, Blood Urea Nitrogen 12, Creatinine 0.7, Estimat Glomerular Filtration Rate > 60, Glucose Level 149H, Calcium Level 6.3L, Total Bilirubin 0.3, Aspartate Amino Transf (AST/SGOT) 17, Alanine Aminotransferase (ALT/SGPT) 34, Alkaline Phosphatase 24L, Total Protein 3.3L, Albumin 1.4L, Globulin 1.9, Albumin/Globulin Ratio 0.7L 09/16/17 20:40: White Blood Count 16.1H, Red Blood Count 3.64L, Hemoglobin 10.8#L, Hematocrit 31.3#L, Mean Corpuscular Volume 86, Mean Corpuscular Hemoglobin 29.6, Mean Corpuscular Hemoglobin Concent 34.5, Red Cell Distribution Width 12.1, Platelet Count 66L, Mean Platelet Volume 7.3, Neutrophils (%) (Auto) , Lymphocytes (%) ( Auto) , Monocytes (%) (Auto) , Eosinophils (%) (Auto) , Basophils (%) (Auto) , Differential Total Cells Counted 100, Neutrophils % (Manual) 80H, Lymphocytes % (Manual) 11L, Monocytes % (Manual) 8, Eosinophils % (Manual) 0, Basophils % ( Manual) 1, Band Neutrophils 0, Platelet Estimate DecreasedL, Platelet Morphology Normal, Hypochromasia 1+, Anisocytosis 1+ 09/17/17 04:59: Arterial Blood pH 7.430, Arterial Blood Partial Pressure CO2 33.8L, Arterial Blood Partial Pressure O2 194.9H, Arterial Blood HCO3 21.9L, Arterial Blood Oxygen Saturation 97.7, Arterial Blood Base Excess -2.2, Kp Test Positive 09/17/17 07:20: Prothrombin Time 10.0, Prothromb Time International Ratio 1.0, Activated Partial Thromboplast Time 19L, Sodium Level 143, Potassium Level 3.5, Chloride Level 110H, Carbon Dioxide Level 23, Anion Gap 10, Blood Urea Nitrogen 10, Creatinine 0.8, Estimat Glomerular Filtration Rate > 60, Glucose Level 103, Calcium Level 7.2L, Total Bilirubin 0.8, Aspartate Amino Transf (AST/SGOT) 27, Alanine Aminotransferase (ALT/SGPT) 30, Alkaline Phosphatase 37L, Total Protein 4.7#L, Albumin 2.3L, Globulin 2.4, Albumin/Globulin Ratio 1.0 09/17/17 09:00: White Blood Count 12.1H, Red Blood Count 1.97L, Hemoglobin 5.9#*L, Hematocrit 17.0#L, Mean Corpuscular Volume 86, Mean Corpuscular Hemoglobin 29.7, Mean Corpuscular Hemoglobin Concent 34.5, Red Cell Distribution Width 12.8, Platelet Count 140#L, Mean Platelet Volume 5.9L, Neutrophils (%) (Auto) , Lymphocytes (% ) (Auto) , Monocytes (%) (Auto) , Eosinophils (%) (Auto) , Basophils (%) (Auto) , Differential Total Cells Counted 100, Neutrophils % (Manual) 74, Lymphocytes % (Manual) 12L, Monocytes % (Manual) 14H, Eosinophils % (Manual) 0, Basophils % (Manual) 0, Band Neutrophils 0, Nucleated Red Blood Cells 1, Platelet Estimate DecreasedL, Platelet Morphology Normal, Polychromasia 2+, Hypochromasia 4+, Anisocytosis 1+, Spherocytes 2+, Arterial Blood pH 7.440, Arterial Blood Partial Pressure CO2 36.9, Arterial Blood Partial Pressure O2 132.0H, Arterial Blood HCO3 24.5, Arterial Blood Oxygen Saturation 97.6, Arterial Blood Base Excess 0.3, Kp Test Positive, Lactic Acid Level 1.10 09/17/17 14:45: White Blood Count 10.8, Red Blood Count 1.91L, Hemoglobin 5.7*L, Hematocrit 16.6L, Mean Corpuscular Volume 86, Mean Corpuscular Hemoglobin 29.9, Mean Corpuscular Hemoglobin Concent 34.5, Red Cell Distribution Width 13.4, Platelet Count 145L, Mean Platelet Volume 6.1L, Neutrophils (%) (Auto) , Lymphocytes (%) (Auto) , Monocytes (%) (Auto) , Eosinophils (%) (Auto) , Basophils (%) (Auto) , Differential Total Cells Counted 100, Neutrophils % (Manual) 80H, Lymphocytes % (Manual) 13L, Monocytes % (Manual) 6, Eosinophils % (Manual) 1, Basophils % ( Manual) 0, Band Neutrophils 0, Nucleated Red Blood Cells 1, Platelet Estimate DecreasedL, Platelet Morphology Normal, Polychromasia 1+, Anisocytosis 1+, Microcytosis 1+, Sodium Level 140, Potassium Level 3.2L, Chloride Level 107, Carbon Dioxide Level 26, Anion Gap 7, Blood Urea Nitrogen 6L, Creatinine 0.7, Estimat Glomerular Filtration Rate > 60, Glucose Level 113H, Calcium Level 7.1L , Total Bilirubin 0.8, Aspartate Amino Transf (AST/SGOT) 17, Alanine Aminotransferase (ALT/SGPT) 26, Alkaline Phosphatase 34L, Total Protein 4.8L, Albumin 2.2L, Globulin 2.6, Albumin/Globulin Ratio 0.8L Height (Feet): 5 Height (Inches): 7.00 Weight (Pounds): 149 Objective Pale in ICU CTA RR/tachy abd soft NT ND no edema mentating Jony Busch MD September 17, 2017 18:05
[2017-09-17 19:22] LABS: BASOPHILS % (AUTO) 1.2 % (0.0-2.0); EOSINOPHILS % (AUTO) 0.7 % (0.0-3.0); HEMATOCRIT 28.8 % (42.0-52.0); HEMOGLOBIN 10.3 G/DL (14.2-18.0); MEAN CORPUSCULAR VOLUME 85 FL (80-99); MONOCYTES % (AUTO) 13.2 % (1.0-10.0); NEUTROPHILS % (AUTO) 68.9 % (45.0-75.0); PLATELET COUNT 123 K/UL (150-450); RED CELL DISTRIBUTION WIDTH 12.6 % (11.6-14.8); WHITE BLOOD COUNT 12.8 K/UL (4.8-10.8)
[2017-09-17 22:13] LABS: BASOPHILS % (AUTO) 1.2 % (0.0-2.0); EOSINOPHILS % (AUTO) 0.9 % (0.0-3.0); HEMATOCRIT 29.7 % (42.0-52.0); HEMOGLOBIN 10.6 G/DL (14.2-18.0); LYMPHOCYTES % (AUTO) 11.3 % (20.0-45.0); MEAN CORPUSCULAR VOLUME 84 FL (80-99); MONOCYTES % (AUTO) 11.7 % (1.0-10.0); NEUTROPHILS % (AUTO) 74.8 % (45.0-75.0); PLATELET COUNT 123 K/UL (150-450); RED BLOOD COUNT 3.51 M/UL (4.70-6.10); RED CELL DISTRIBUTION WIDTH 13.2 % (11.6-14.8); WHITE BLOOD COUNT 13.2 K/UL (4.8-10.8)
[2017-09-18] VITALS (24 sets, daily range): BP systolic 111–143; BP diastolic 60–98
[2017-09-18] MEDS: Morphine Sulfate 4mg/ml Inj IVP PRN (02:09)
[2017-09-18] MEDS: LR 1000ml 1,000 ML IV SCH ×2 (03:09→22:23)
[2017-09-18] MEDS: Piperacillin/Tazobactam 3.375 GM in D5W 110 ML IVPB SCH ×3 (03:09→19:01)
[2017-09-18 05:09] LABS: BASOPHILS % (AUTO) 0.9 % (0.0-2.0); EOSINOPHILS % (AUTO) 1.4 % (0.0-3.0); HEMATOCRIT 27.8 % (42.0-52.0); HEMOGLOBIN 10.1 G/DL (14.2-18.0); LYMPHOCYTES % (AUTO) 12.7 % (20.0-45.0); MEAN CORPUSCULAR VOLUME 86 FL (80-99); MONOCYTES % (AUTO) 11.3 % (1.0-10.0); NEUTROPHILS % (AUTO) 73.6 % (45.0-75.0); PLATELET COUNT 118 K/UL (150-450); RED BLOOD COUNT 3.24 M/UL (4.70-6.10); RED CELL DISTRIBUTION WIDTH 12.5 % (11.6-14.8); WHITE BLOOD COUNT 11.8 K/UL (4.8-10.8)
[2017-09-18 05:47] LABS: ALANINE AMINOTRANSFERASE 25 U/L (12-78); ALBUMIN 2.3 G/DL (3.4-5.0); ALBUMIN/GLOBULIN RATIO 0.8 (1.0-2.7); ALKALINE PHOSPHATASE 44 U/L (46-116); ANION GAP 5 mmol/L (5-15); ASPARTATE AMINO TRANSFERASE 15 U/L (15-37); BILIRUBIN,TOTAL 1.2 MG/DL (0.2-1.0); BLOOD UREA NITROGEN 5 mg/dL (7-18); CALCIUM 7.6 MG/DL (8.5-10.1); CARBON DIOXIDE 30 MMOL/L (21-32); CHLORIDE 103 MMOL/L (98-107); CREATININE 0.7 MG/DL (0.55-1.30); POTASSIUM 3.1 MMOL/L (3.5-5.1); SODIUM 138 MMOL/L (136-145)
[2017-09-18 06:37] LABS: BILIRUBIN,DIRECT 0.4 MG/DL (0.0-0.3)
--- NOTE | 2017-09-18 09:47 | General Progress Note ---
Assessment/Plan Problem List: (1) Colitis ICD Codes: K52.9 - Noninfective gastroenteritis and colitis, unspecified SNOMED: 54691198 (2) Anemia ICD Codes: D64.9 - Anemia, unspecified SNOMED: 091077555 Qualifiers: Status: stable Assessment/Plan IVF resp rx pain rx PPI iv abx await path Subjective ROS Limited/Unobtainable: No Constitutional: Reports: malaise, weakness HEENT: Reports: no symptoms Cardiovascular: Reports: no symptoms Respiratory: Reports: no symptoms Gastrointestinal/Abdominal: Reports: no symptoms Genitourinary: Reports: no symptoms Neurologic/Psychiatric: Reports: no symptoms Endocrine: Reports: no symptoms Hematologic/Lymphatic: Reports: no symptoms Allergies: Coded Allergies: No Known Allergies (Verified , 06/03/09) All Systems: reviewed and negative except above Subjective no events. thirsty. no BM. not passing gas. No path back yet Objective Last 24 Hour Vital Signs Date Time Temp Pulse Resp B/P (MAP) Pulse Ox O2 Delivery O2 Flow Rate FiO2 09/18/17 08:17 Nasal Cannula 2.0 28 09/18/17 08:17 100 Nasal Cannula 2.0 28 09/18/17 07:00 83 19 116/80 100 Nasal Cannula 2.0 09/18/17 06:00 86 19 125/88 100 Nasal Cannula 2.0 09/18/17 05:00 85 19 126/74 100 Nasal Cannula 2.0 09/18/17 04:00 98.7 92 16 111/66 100 Nasal Cannula 2.0 98.7 09/18/17 04:00 88 09/18/17 03:00 85 15 111/72 100 Nasal Cannula 2.0 09/18/17 02:00 93 16 120/85 100 Nasal Cannula 2.0 09/18/17 01:00 89 15 131/82 100 Nasal Cannula 2.0 09/18/17 00:00 89 09/18/17 00:00 87 15 132/85 100 Nasal Cannula 2.0 09/17/17 23:00 98.6 90 16 124/73 100 Nasal Cannula 2.0 98.6 09/17/17 22:00 93 16 135/98 100 Nasal Cannula 2.0 09/17/17 21:00 89 16 134/89 100 Nasal Cannula 2.0 09/17/17 20:00 91 09/17/17 20:00 94 17 131/65 100 Nasal Cannula 2.0 09/17/17 19:21 100 Nasal Cannula 2.0 28 09/17/17 19:20 Nasal Cannula 2.0 28 09/17/17 19:00 98.7 89 15 131/81 100 Nasal Cannula 2.0 98.7 09/17/17 18:00 84 17 120/83 100 Nasal Cannula 2.0 09/17/17 17:00 87 17 113/75 100 Nasal Cannula 2.0 09/17/17 16:00 98.5 89 15 118/75 100 Nasal Cannula 2.0 98.5 09/17/17 16:00 97 09/17/17 16:00 2.0 09/17/17 15:00 92 16 113/79 100 Nasal Cannula 2.0 09/17/17 14:00 92 16 115/77 100 Nasal Cannula 2.0 09/17/17 13:00 94 20 122/74 100 Nasal Cannula 2.0 09/17/17 12:00 98.2 95 18 121/73 100 Nasal Cannula 2.0 98.2 09/17/17 12:00 2.0 09/17/17 12:00 103 09/17/17 11:00 99 17 117/70 100 Nasal Cannula 2.0 09/17/17 10:30 99 18 119/69 100 Nasal Cannula 2.0 09/17/17 10:00 98 19 127/80 100 Nasal Cannula 2.0 09/17/17 09:53 100 Nasal Cannula 2.0 28 09/17/17 09:53 Nasal Cannula 2.0 28 09/17/17 09:50 Nasal Cannula 2.0 28 09/17/17 09:47 101 19 Intake and Output 09/17/17 09/18/17 19:00 07:00 Intake Total 2921.0 ml 1065.0 ml Output Total 2450 ml 1550 ml Balance 471.0 ml -485.0 ml IV Total 1741.0 ml 1065.0 ml Blood Product 1050 ml Other 130 ml Output Urine Total 2450 ml 1550 ml Laboratory Tests 09/17/17 14:45: White Blood Count 10.8, Red Blood Count 1.91L, Hemoglobin 5.7*L, Hematocrit 16.6L, Mean Corpuscular Volume 86, Mean Corpuscular Hemoglobin 29.9, Mean Corpuscular Hemoglobin Concent 34.5, Red Cell Distribution Width 13.4, Platelet Count 145L, Mean Platelet Volume 6.1L, Neutrophils (%) (Auto) , Lymphocytes (%) (Auto) , Monocytes (%) (Auto) , Eosinophils (%) (Auto) , Basophils (%) (Auto) , Differential Total Cells Counted 100, Neutrophils % (Manual) 80H, Lymphocytes % (Manual) 13L, Monocytes % (Manual) 6, Eosinophils % (Manual) 1, Basophils % ( Manual) 0, Band Neutrophils 0, Nucleated Red Blood Cells 1, Platelet Estimate DecreasedL, Platelet Morphology Normal, Polychromasia 1+, Anisocytosis 1+, Microcytosis 1+, Sodium Level 140, Potassium Level 3.2L, Chloride Level 107, Carbon Dioxide Level 26, Anion Gap 7, Blood Urea Nitrogen 6L, Creatinine 0.7, Estimat Glomerular Filtration Rate > 60, Glucose Level 113H, Calcium Level 7.1L , Total Bilirubin 0.8, Aspartate Amino Transf (AST/SGOT) 17, Alanine Aminotransferase (ALT/SGPT) 26, Alkaline Phosphatase 34L, Total Protein 4.8L, Albumin 2.2L, Globulin 2.6, Albumin/Globulin Ratio 0.8L 09/17/17 19:00: White Blood Count 12.8H, Red Blood Count 3.40L, Hemoglobin 10.3#L, Hematocrit 28.8#L, Mean Corpuscular Volume 85, Mean Corpuscular Hemoglobin 30.2, Mean Corpuscular Hemoglobin Concent 35.7, Red Cell Distribution Width 12.6, Platelet Count 123L, Mean Platelet Volume 5.8L, Neutrophils (%) (Auto) 68.9, Lymphocytes (%) (Auto) 16.0L, Monocytes (%) (Auto) 13.2H, Eosinophils (%) (Auto) 0.7, Basophils (%) (Auto) 1.2 09/17/17 22:00: White Blood Count 13.2H, Red Blood Count 3.51L, Hemoglobin 10.6L, Hematocrit 29.7L, Mean Corpuscular Volume 84, Mean Corpuscular Hemoglobin 30.0, Mean Corpuscular Hemoglobin Concent 35.6, Red Cell Distribution Width 13.2, Platelet Count 123L, Mean Platelet Volume 6.4L, Neutrophils (%) (Auto) 74.8, Lymphocytes (%) (Auto) 11.3L, Monocytes (%) (Auto) 11.7H, Eosinophils (%) (Auto) 0.9, Basophils (%) (Auto) 1.2 09/18/17 04:00: White Blood Count 11.8H, Red Blood Count 3.24L, Hemoglobin 10.1L, Hematocrit 27.8L, Mean Corpuscular Volume 86, Mean Corpuscular Hemoglobin 31.0, Mean Corpuscular Hemoglobin Concent 36.1H, Red Cell Distribution Width 12.5, Platelet Count 118L, Mean Platelet Volume 7.0, Neutrophils (%) (Auto) 73.6, Lymphocytes (%) (Auto) 12.7L, Monocytes (%) (Auto) 11.3H, Eosinophils (%) (Auto ) 1.4, Basophils (%) (Auto) 0.9, Sodium Level 138, Potassium Level 3.1L, Chloride Level 103, Carbon Dioxide Level 30, Anion Gap 5, Blood Urea Nitrogen 5L , Creatinine 0.7, Estimat Glomerular Filtration Rate > 60, Glucose Level 91, Calcium Level 7.6L, Total Bilirubin 1.2H, Aspartate Amino Transf (AST/SGOT) 15, Alanine Aminotransferase (ALT/SGPT) 25, Alkaline Phosphatase 44L, Total Protein 5.3L, Albumin 2.3L, Globulin 3.0, Albumin/Globulin Ratio 0.8L, Direct Bilirubin 0.4H Height (Feet): 5 Height (Inches): 7.00 Weight (Pounds): 149 General Appearance: WD/WN, alert Neck: supple Cardiovascular: regular rhythm Respiratory/Chest: lungs clear, normal breath sounds Abdomen: absent bowel sounds Edema: no edema noted Arm (L), no edema noted Arm (R), no edema noted Leg (L), no edema noted Leg (R), no edema noted Pedal (L), no edema noted Pedal (R), no edema noted Generalized DEJON DAMICO September 18, 2017 09:47
[2017-09-18] MEDS: Pantoprazole Inj IVP SCH ×2 (10:14→20:27)
--- NOTE | 2017-09-18 16:03 | General Progress Note ---
Progress Note Progress Note Surgery: doing much better. comfortable. pain improved. no n/v/f/c. labs stable. no longer bleeding wounds c/d/i. abd soft, tender, mild distention -d/c [place] -ambulate and out of bed -okay for sips of clears -am labs -incentive spirometry will follow with recs. Mic Marks September 18, 2017 16:03
[2017-09-18] MEDS ORDERED: Metoclopramide 10mg/2ml Inj IVP PRN (17:17)
--- NOTE | 2017-09-18 18:22 | General Progress Note ---
Assessment/Plan Assessment/Plan Assessment - Massive GIB, from proximal jejunal mass - Severe anemiam - resolved - hypovolemic shock - resolved - s/p ex lap Recommendations - diet per surgery - OK to transfer to regular room from GI standpoint - IVF - transfuse PRN - f/u path Subjective Allergies: Coded Allergies: No Known Allergies (Verified , 06/03/09) Subjective POD #2 doing well no new complaints bleeding stopped Objective Last 24 Hour Vital Signs Date Time Temp Pulse Resp B/P (MAP) Pulse Ox O2 Delivery O2 Flow Rate FiO2 09/18/17 16:00 79 09/18/17 16:00 85 16 139/80 100 Room Air 09/18/17 15:00 87 18 122/85 100 Room Air 09/18/17 14:00 90 19 124/81 100 Nasal Cannula 2.0 09/18/17 13:00 92 19 115/83 100 Nasal Cannula 2.0 09/18/17 12:00 85 09/18/17 12:00 98.2 90 18 118/60 100 Nasal Cannula 2.0 98.2 09/18/17 11:00 87 19 119/80 100 Nasal Cannula 2.0 09/18/17 10:00 85 16 122/81 100 Nasal Cannula 2.0 09/18/17 09:00 83 19 118/72 100 Nasal Cannula 2.0 09/18/17 08:36 2.0 09/18/17 08:17 Nasal Cannula 2.0 28 09/18/17 08:17 100 Nasal Cannula 2.0 28 09/18/17 08:00 82 09/18/17 08:00 98.7 90 18 120/66 100 Nasal Cannula 2.0 98.7 09/18/17 07:00 83 19 116/80 100 Nasal Cannula 2.0 09/18/17 06:00 86 19 125/88 100 Nasal Cannula 2.0 09/18/17 05:00 85 19 126/74 100 Nasal Cannula 2.0 09/18/17 04:00 98.7 92 16 111/66 100 Nasal Cannula 2.0 98.7 09/18/17 04:00 88 09/18/17 03:00 85 15 111/72 100 Nasal Cannula 2.0 09/18/17 02:00 93 16 120/85 100 Nasal Cannula 2.0 09/18/17 01:00 89 15 131/82 100 Nasal Cannula 2.0 09/18/17 00:00 89 09/18/17 00:00 87 15 132/85 100 Nasal Cannula 2.0 09/17/17 23:00 98.6 90 16 124/73 100 Nasal Cannula 2.0 98.6 09/17/17 22:00 93 16 135/98 100 Nasal Cannula 2.0 09/17/17 21:00 89 16 134/89 100 Nasal Cannula 2.0 09/17/17 20:00 91 09/17/17 20:00 94 17 131/65 100 Nasal Cannula 2.0 09/17/17 19:21 100 Nasal Cannula 2.0 28 09/17/17 19:20 Nasal Cannula 2.0 28 09/17/17 19:00 98.7 89 15 131/81 100 Nasal Cannula 2.0 98.7 Intake and Output 09/17/17 09/18/17 19:00 07:00 Intake Total 2921.0 ml 1065.0 ml Output Total 2450 ml 1550 ml Balance 471.0 ml -485.0 ml IV Total 1741.0 ml 1065.0 ml Blood Product 1050 ml Other 130 ml Output Urine Total 2450 ml 1550 ml Laboratory Tests 09/17/17 19:00: White Blood Count 12.8H, Red Blood Count 3.40L, Hemoglobin 10.3#L, Hematocrit 28.8#L, Mean Corpuscular Volume 85, Mean Corpuscular Hemoglobin 30.2, Mean Corpuscular Hemoglobin Concent 35.7, Red Cell Distribution Width 12.6, Platelet Count 123L, Mean Platelet Volume 5.8L, Neutrophils (%) (Auto) 68.9, Lymphocytes (%) (Auto) 16.0L, Monocytes (%) (Auto) 13.2H, Eosinophils (%) (Auto) 0.7, Basophils (%) (Auto) 1.2 09/17/17 22:00: White Blood Count 13.2H, Red Blood Count 3.51L, Hemoglobin 10.6L, Hematocrit 29.7L, Mean Corpuscular Volume 84, Mean Corpuscular Hemoglobin 30.0, Mean Corpuscular Hemoglobin Concent 35.6, Red Cell Distribution Width 13.2, Platelet Count 123L, Mean Platelet Volume 6.4L, Neutrophils (%) (Auto) 74.8, Lymphocytes (%) (Auto) 11.3L, Monocytes (%) (Auto) 11.7H, Eosinophils (%) (Auto) 0.9, Basophils (%) (Auto) 1.2 09/18/17 04:00: White Blood Count 11.8H, Red Blood Count 3.24L, Hemoglobin 10.1L, Hematocrit 27.8L, Mean Corpuscular Volume 86, Mean Corpuscular Hemoglobin 31.0, Mean Corpuscular Hemoglobin Concent 36.1H, Red Cell Distribution Width 12.5, Platelet Count 118L, Mean Platelet Volume 7.0, Neutrophils (%) (Auto) 73.6, Lymphocytes (%) (Auto) 12.7L, Monocytes (%) (Auto) 11.3H, Eosinophils (%) (Auto ) 1.4, Basophils (%) (Auto) 0.9, Sodium Level 138, Potassium Level 3.1L, Chloride Level 103, Carbon Dioxide Level 30, Anion Gap 5, Blood Urea Nitrogen 5L , Creatinine 0.7, Estimat Glomerular Filtration Rate > 60, Glucose Level 91, Calcium Level 7.6L, Total Bilirubin 1.2H, Direct Bilirubin 0.4H, Aspartate Amino Transf (AST/SGOT) 15, Alanine Aminotransferase (ALT/SGPT) 25, Alkaline Phosphatase 44L, Total Protein 5.3L, Albumin 2.3L, Globulin 3.0, Albumin/ Globulin Ratio 0.8L Height (Feet): 5 Height (Inches): 7.00 Weight (Pounds): 149 Objective Pale in ICU CTA RR/tachy abd soft (+) dressing no edema mentating Jony Busch MD September 18, 2017 18:22
[2017-09-18] MEDS ORDERED: Dyna-Hex 2% Top Sol 2oz TOPIC SCH (20:00)
[2017-09-19] VITALS (14 sets, daily range): BP systolic 113–165; BP diastolic 69–100
[2017-09-19 00:20] LABS: BASOPHILS % (AUTO) 0.6 % (0.0-2.0); EOSINOPHILS % (AUTO) 1.1 % (0.0-3.0); HEMATOCRIT 32.2 % (42.0-52.0); HEMOGLOBIN 11.2 G/DL (14.2-18.0); LYMPHOCYTES % (AUTO) 9.5 % (20.0-45.0); MEAN CORPUSCULAR VOLUME 85 FL (80-99); MONOCYTES % (AUTO) 8.4 % (1.0-10.0); NEUTROPHILS % (AUTO) 80.4 % (45.0-75.0); PLATELET COUNT 184 K/UL (150-450); RED BLOOD COUNT 3.76 M/UL (4.70-6.10); RED CELL DISTRIBUTION WIDTH 13.4 % (11.6-14.8); WHITE BLOOD COUNT 11.8 K/UL (4.8-10.8)
[2017-09-19] MEDS: Piperacillin/Tazobactam 3.375 GM in D5W 110 ML IVPB SCH ×3 (03:29→20:09)
[2017-09-19] MEDS: Morphine Sulfate 4mg/ml Inj IVP PRN (04:18)
[2017-09-19 05:23] LABS: BASOPHILS % (AUTO) 0.6 % (0.0-2.0); EOSINOPHILS % (AUTO) 1.4 % (0.0-3.0); HEMATOCRIT 30.8 % (42.0-52.0); HEMOGLOBIN 10.8 G/DL (14.2-18.0); LYMPHOCYTES % (AUTO) 10.8 % (20.0-45.0); MEAN CORPUSCULAR VOLUME 86 FL (80-99); MONOCYTES % (AUTO) 8.2 % (1.0-10.0); NEUTROPHILS % (AUTO) 79.1 % (45.0-75.0); PLATELET COUNT 193 K/UL (150-450); RED BLOOD COUNT 3.56 M/UL (4.70-6.10); WHITE BLOOD COUNT 11.3 K/UL (4.8-10.8)
[2017-09-19 05:53] LABS: ALANINE AMINOTRANSFERASE 25 U/L (12-78); ALBUMIN 2.4 G/DL (3.4-5.0); ALBUMIN/GLOBULIN RATIO 0.7 (1.0-2.7); ALKALINE PHOSPHATASE 73 U/L (46-116); ANION GAP 11 mmol/L (5-15); ASPARTATE AMINO TRANSFERASE 16 U/L (15-37); BILIRUBIN,TOTAL 0.8 MG/DL (0.2-1.0); BLOOD UREA NITROGEN 7 mg/dL (7-18); CALCIUM 8.2 MG/DL (8.5-10.1); CARBON DIOXIDE 24 MMOL/L (21-32); CHLORIDE 100 MMOL/L (98-107); CREATININE 0.7 MG/DL (0.55-1.30); POTASSIUM 3.4 MMOL/L (3.5-5.1); SODIUM 135 MMOL/L (136-145)
[2017-09-19] MEDS: Pantoprazole Inj IVP SCH ×2 (08:23→20:49)
[2017-09-19] MEDS: LR 1000ml 1,000 ML IV SCH ×2 (08:27→18:30)
--- NOTE | 2017-09-19 08:36 | General Progress Note ---
Assessment/Plan Problem List: (1) Colitis ICD Codes: K52.9 - Noninfective gastroenteritis and colitis, unspecified SNOMED: 25100106 (2) Anemia ICD Codes: D64.9 - Anemia, unspecified SNOMED: 632546826 Qualifiers: Status: stable, progressing Assessment/Plan IVF resp rx pain rx PPI iv abx await path- final results blood bonnie stool from yesterday likely old blood Subjective ROS Limited/Unobtainable: No Constitutional: Reports: malaise, weakness HEENT: Reports: no symptoms Cardiovascular: Reports: no symptoms Gastrointestinal/Abdominal: Reports: tarry stools, blood in stool Genitourinary: Reports: no symptoms Neurologic/Psychiatric: Reports: no symptoms Endocrine: Reports: no symptoms Hematologic/Lymphatic: Reports: no symptoms Allergies: Coded Allergies: No Known Allergies (Verified , 06/03/09) All Systems: reviewed and negative except above Subjective no events. thirsty. no BM. not passing gas. 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 Objective Last 24 Hour Vital Signs Date Time Temp Pulse Resp B/P (MAP) Pulse Ox O2 Delivery O2 Flow Rate FiO2 09/19/17 08:00 79 09/19/17 08:00 98.3 77 17 127/84 100 Nasal Cannula 2.0 98.3 09/19/17 06:00 74 15 113/74 100 Nasal Cannula 2.0 09/19/17 05:00 77 15 113/74 100 Nasal Cannula 2.0 09/19/17 04:00 84 17 126/80 100 Nasal Cannula 2.0 09/19/17 04:00 85 09/19/17 03:00 90 18 141/98 100 Nasal Cannula 2.0 09/19/17 02:00 84 16 138/98 100 Nasal Cannula 2.0 09/19/17 01:00 82 15 113/69 100 Nasal Cannula 2.0 09/19/17 00:00 89 09/19/17 00:00 98.3 90 16 126/92 100 Nasal Cannula 2.0 98.3 09/18/17 23:00 94 17 138/98 100 Nasal Cannula 2.0 09/18/17 22:00 86 17 120/74 100 Nasal Cannula 2.0 09/18/17 21:00 88 19 143/98 100 Nasal Cannula 2.0 09/18/17 20:00 85 09/18/17 20:00 98.6 87 17 126/90 100 Nasal Cannula 2.0 98.6 09/18/17 19:23 100 Nasal Cannula 2.0 28 09/18/17 19:23 Nasal Cannula 2.0 28 09/18/17 19:00 91 19 122/82 100 Nasal Cannula 2.0 09/18/17 18:00 87 16 133/80 100 Room Air 09/18/17 17:00 98.2 90 18 128/65 100 Nasal Cannula 2.0 98.2 09/18/17 16:00 79 09/18/17 16:00 85 16 139/80 100 Room Air 09/18/17 15:00 87 18 122/85 100 Room Air 09/18/17 14:00 90 19 124/81 100 Nasal Cannula 2.0 09/18/17 13:00 92 19 115/83 100 Nasal Cannula 2.0 09/18/17 12:00 85 09/18/17 12:00 98.2 90 18 118/60 100 Nasal Cannula 2.0 98.2 09/18/17 11:00 87 19 119/80 100 Nasal Cannula 2.0 09/18/17 10:00 85 16 122/81 100 Nasal Cannula 2.0 09/18/17 09:00 83 19 118/72 100 Nasal Cannula 2.0 09/18/17 08:36 2.0 Intake and Output 09/18/17 09/19/17 19:00 07:00 Intake Total 1060.0 ml 765.0 ml Output Total 1615 ml 700 ml Balance -555.0 ml 65.0 ml IV Total 1060.0 ml 765.0 ml Output Urine Total 1615 ml 700 ml # Bowel Movements 7 Laboratory Tests 09/19/17 00:00: White Blood Count 11.8H, Red Blood Count 3.76L, Hemoglobin 11.2L, Hematocrit 32.2L, Mean Corpuscular Volume 85, Mean Corpuscular Hemoglobin 29.8, Mean Corpuscular Hemoglobin Concent 34.8, Red Cell Distribution Width 13.4, Platelet Count 184#, Mean Platelet Volume 6.3L, Neutrophils (%) (Auto) 80.4H, Lymphocytes (%) (Auto) 9.5L, Monocytes (%) (Auto) 8.4, Eosinophils (%) (Auto) 1.1, Basophils (%) (Auto) 0.6 09/19/17 04:00: White Blood Count 11.3H, Red Blood Count 3.56L, Hemoglobin 10.8L, Hematocrit 30.8L, Mean Corpuscular Volume 86, Mean Corpuscular Hemoglobin 30.3, Mean Corpuscular Hemoglobin Concent 35.1, Red Cell Distribution Width 13.0, Platelet Count 193, Mean Platelet Volume 7.0, Neutrophils (%) (Auto) 79.1H, Lymphocytes ( %) (Auto) 10.8L, Monocytes (%) (Auto) 8.2, Eosinophils (%) (Auto) 1.4, Basophils (%) (Auto) 0.6, Sodium Level 135L, Potassium Level 3.4L, Chloride Level 100, Carbon Dioxide Level 24, Anion Gap 11, Blood Urea Nitrogen 7, Creatinine 0.7, Estimat Glomerular Filtration Rate > 60, Glucose Level 96, Calcium Level 8.2L, Total Bilirubin 0.8, Aspartate Amino Transf (AST/SGOT) 16, Alanine Aminotransferase (ALT/SGPT) 25, Alkaline Phosphatase 73, Total Protein 6.0L, Albumin 2.4L, Globulin 3.6, Albumin/Globulin Ratio 0.7L Height (Feet): 5 Height (Inches): 7.00 Weight (Pounds): 149 DEJON DAMICO September 19, 2017 08:36
--- NOTE | 2017-09-19 11:05 | General Progress Note ---
Progress Note Progress Note Surgery: no acute events. doing well. comfortable. pain improved. no n/v/f/c. +BM' s. +flatus this AM afebrile, HD stable, labs okay. -okay to downgrade -start clears -decrease IV fluids -ambulate and out of bed -incentive spirometry -if can obtain peripheral IV access, please d/c triple lumen central venous catheter. Mic Marks September 19, 2017 11:05
[2017-09-19] MEDS ORDERED: LR 1000ml 1,000 ML IV SCH (11:30)
--- NOTE | 2017-09-19 13:58 | General Progress Note ---
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 SNOMED: 474445901 Assessment/Plan started on clears per surg fu path fu labs prn blood transfusion Subjective ROS Limited/Unobtainable: Yes Allergies: Coded Allergies: No Known Allergies (Verified , 06/03/09) Objective Last 24 Hour Vital Signs Date Time Temp Pulse Resp B/P (MAP) Pulse Ox O2 Delivery O2 Flow Rate FiO2 09/19/17 12:00 82 17 141/100 100 Nasal Cannula 2.0 09/19/17 12:00 80 09/19/17 10:45 81 14 139/100 100 Nasal Cannula 2.0 09/19/17 09:00 74 17 113/85 100 Nasal Cannula 2.0 09/19/17 08:00 79 09/19/17 08:00 98.3 77 17 127/84 100 Nasal Cannula 2.0 98.3 09/19/17 06:00 74 15 113/74 100 Nasal Cannula 2.0 09/19/17 05:00 77 15 113/74 100 Nasal Cannula 2.0 09/19/17 04:00 84 17 126/80 100 Nasal Cannula 2.0 09/19/17 04:00 85 09/19/17 03:00 90 18 141/98 100 Nasal Cannula 2.0 09/19/17 02:00 84 16 138/98 100 Nasal Cannula 2.0 09/19/17 01:00 82 15 113/69 100 Nasal Cannula 2.0 09/19/17 00:00 89 09/19/17 00:00 98.3 90 16 126/92 100 Nasal Cannula 2.0 98.3 09/18/17 23:00 94 17 138/98 100 Nasal Cannula 2.0 09/18/17 22:00 86 17 120/74 100 Nasal Cannula 2.0 09/18/17 21:00 88 19 143/98 100 Nasal Cannula 2.0 09/18/17 20:00 85 09/18/17 20:00 98.6 87 17 126/90 100 Nasal Cannula 2.0 98.6 09/18/17 19:23 100 Nasal Cannula 2.0 28 09/18/17 19:23 Nasal Cannula 2.0 28 09/18/17 19:00 91 19 122/82 100 Nasal Cannula 2.0 09/18/17 18:00 87 16 133/80 100 Room Air 09/18/17 17:00 98.2 90 18 128/65 100 Nasal Cannula 2.0 98.2 09/18/17 16:00 79 09/18/17 16:00 85 16 139/80 100 Room Air 09/18/17 15:00 87 18 122/85 100 Room Air 09/18/17 14:00 90 19 124/81 100 Nasal Cannula 2.0 Intake and Output 09/18/17 09/19/17 19:00 07:00 Intake Total 1060.0 ml 867.5 ml Output Total 1615 ml 700 ml Balance -555.0 ml 167.5 ml IV Total 1060.0 ml 867.5 ml Output Urine Total 1615 ml 700 ml # Bowel Movements 7 Laboratory Tests 09/19/17 00:00: White Blood Count 11.8H, Red Blood Count 3.76L, Hemoglobin 11.2L, Hematocrit 32.2L, Mean Corpuscular Volume 85, Mean Corpuscular Hemoglobin 29.8, Mean Corpuscular Hemoglobin Concent 34.8, Red Cell Distribution Width 13.4, Platelet Count 184#, Mean Platelet Volume 6.3L, Neutrophils (%) (Auto) 80.4H, Lymphocytes (%) (Auto) 9.5L, Monocytes (%) (Auto) 8.4, Eosinophils (%) (Auto) 1.1, Basophils (%) (Auto) 0.6 09/19/17 04:00: White Blood Count 11.3H, Red Blood Count 3.56L, Hemoglobin 10.8L, Hematocrit 30.8L, Mean Corpuscular Volume 86, Mean Corpuscular Hemoglobin 30.3, Mean Corpuscular Hemoglobin Concent 35.1, Red Cell Distribution Width 13.0, Platelet Count 193, Mean Platelet Volume 7.0, Neutrophils (%) (Auto) 79.1H, Lymphocytes ( %) (Auto) 10.8L, Monocytes (%) (Auto) 8.2, Eosinophils (%) (Auto) 1.4, Basophils (%) (Auto) 0.6, Sodium Level 135L, Potassium Level 3.4L, Chloride Level 100, Carbon Dioxide Level 24, Anion Gap 11, Blood Urea Nitrogen 7, Creatinine 0.7, Estimat Glomerular Filtration Rate > 60, Glucose Level 96, Calcium Level 8.2L, Total Bilirubin 0.8, Aspartate Amino Transf (AST/SGOT) 16, Alanine Aminotransferase (ALT/SGPT) 25, Alkaline Phosphatase 73, Total Protein 6.0L, Albumin 2.4L, Globulin 3.6, Albumin/Globulin Ratio 0.7L Height (Feet): 5 Height (Inches): 7.00 Weight (Pounds): 149 General Appearance: no apparent distress EENT: normal ENT inspection Neck: supple Cardiovascular: normal rate Respiratory/Chest: lungs clear Abdomen: soft, other - post surg Extremities: non-tender Marbin Rivera MD September 19, 2017 13:58
[2017-09-19] MEDS ORDERED: Tubing Blood Filter IV ONE ×2 (15:13→15:18)
[2017-09-19] MEDS ORDERED: LR 1000ml ONE ×2 (15:13→15:18)
[2017-09-19] MEDS ORDERED: NS 500ML ONE (15:13)
[2017-09-19] MEDS ORDERED: NS 275ml ONE (15:18)
[2017-09-19] MEDS ORDERED: DiphenhydrAMINE 50mg/ml Inj IVP PRN (18:45)
[2017-09-19] MEDS ORDERED: Metoclopramide 10mg/2ml Inj IVP PRN (18:45)
[2017-09-19] MEDS ORDERED: Morphine Sulfate 4mg/ml Inj IVP PRN ×2 (19:00)
[2017-09-19] MEDS ORDERED: LORazepam Inj 2mg/ml 1ml IV PRN (19:45)
[2017-09-19] MEDS ORDERED: Dyna-Hex 2% Top Sol 2oz TOPIC SCH (20:00)
[2017-09-20] VITALS: BP 134/90
[2017-09-20] MEDS: LR 1000ml 1,000 ML IV SCH (01:58)
[2017-09-20] MEDS: Piperacillin/Tazobactam 3.375 GM in D5W 110 ML IVPB SCH ×3 (03:52→20:22)
[2017-09-20 04:00] VITALS: BP 145/90
[2017-09-20 05:39] LABS: BASOPHILS % (AUTO) 0.6 % (0.0-2.0); EOSINOPHILS % (AUTO) 2.5 % (0.0-3.0); HEMATOCRIT 35.3 % (42.0-52.0); HEMOGLOBIN 12.1 G/DL (14.2-18.0); LYMPHOCYTES % (AUTO) 10.5 % (20.0-45.0); MEAN CORPUSCULAR VOLUME 87 FL (80-99); MONOCYTES % (AUTO) 8.9 % (1.0-10.0); NEUTROPHILS % (AUTO) 77.6 % (45.0-75.0); PLATELET COUNT 297 K/UL (150-450); RED BLOOD COUNT 4.05 M/UL (4.70-6.10); RED CELL DISTRIBUTION WIDTH 13.8 % (11.6-14.8); WHITE BLOOD COUNT 12.7 K/UL (4.8-10.8)
[2017-09-20 06:09] LABS: ALANINE AMINOTRANSFERASE 26 U/L (12-78); ALBUMIN 2.5 G/DL (3.4-5.0); ALBUMIN/GLOBULIN RATIO 0.7 (1.0-2.7); ALKALINE PHOSPHATASE 83 U/L (46-116); ANION GAP 11 mmol/L (5-15); ASPARTATE AMINO TRANSFERASE 16 U/L (15-37); BILIRUBIN,TOTAL 0.6 MG/DL (0.2-1.0); BLOOD UREA NITROGEN 10 mg/dL (7-18); CALCIUM 8.6 MG/DL (8.5-10.1); CARBON DIOXIDE 25 MMOL/L (21-32); CHLORIDE 100 MMOL/L (98-107); CREATININE 0.7 MG/DL (0.55-1.30); POTASSIUM 3.6 MMOL/L (3.5-5.1); SODIUM 135 MMOL/L (136-145)
[2017-09-20 08:00] VITALS: BP 128/97
[2017-09-20] MEDS: Pantoprazole Inj IVP SCH (08:09)
--- NOTE | 2017-09-20 09:41 | General Progress Note ---
Assessment/Plan Problem List: (1) Colitis ICD Codes: K52.9 - Noninfective gastroenteritis and colitis, unspecified SNOMED: 70236655 (2) Anemia ICD Codes: D64.9 - Anemia, unspecified SNOMED: 666853628 Qualifiers: Status: stable Assessment/Plan IVF resp rx pain rx PPI iv abx await path- final results mobilize Subjective ROS Limited/Unobtainable: No Constitutional: Reports: malaise, weakness HEENT: Reports: no symptoms Cardiovascular: Reports: no symptoms Respiratory: Reports: no symptoms Gastrointestinal/Abdominal: Reports: nausea Genitourinary: Reports: no symptoms Neurologic/Psychiatric: Reports: no symptoms Endocrine: Reports: no symptoms Hematologic/Lymphatic: Reports: no symptoms Allergies: Coded Allergies: No Known Allergies (Verified , 06/03/09) All Systems: reviewed and negative except above Subjective no complaints. green diarrhea. decreased pain. Objective Last 24 Hour Vital Signs Date Time Temp Pulse Resp B/P (MAP) Pulse Ox O2 Delivery O2 Flow Rate FiO2 09/20/17 08:00 85 09/20/17 08:00 98.3 83 18 128/97 98 Nasal Cannula 2.0 98.3 09/20/17 07:05 99 Nasal Cannula 2.0 28 09/20/17 07:05 Nasal Cannula 2.0 28 09/20/17 04:16 84 09/20/17 04:00 98.4 89 20 145/90 98 Nasal Cannula 2.0 98.4 09/20/17 01:16 Nasal Cannula 2.0 28 09/20/17 01:16 99 Nasal Cannula 2.0 28 09/20/17 00:00 91 09/20/17 00:00 98.7 86 20 134/90 98 Nasal Cannula 2.0 98.7 09/19/17 20:00 85 09/19/17 20:00 98.9 96 20 137/92 98 Nasal Cannula 2.0 98.9 09/19/17 16:00 93 09/19/17 16:00 80 17 149/94 100 Nasal Cannula 2.0 09/19/17 14:00 98.3 86 18 165/86 100 Nasal Cannula 2.0 98.3 09/19/17 12:00 82 17 141/100 100 Nasal Cannula 2.0 09/19/17 12:00 80 09/19/17 10:45 81 14 139/100 100 Nasal Cannula 2.0 Intake and Output 09/19/17 09/20/17 19:00 07:00 Intake Total 995.0 ml 672.5 ml Output Total 1300 ml 450 ml Balance -305.0 ml 222.5 ml Intake Oral 250 ml 180 ml IV Total 745.0 ml 492.5 ml Output Urine Total 1300 ml 450 ml # Bowel Movements 1 6 Laboratory Tests 09/20/17 03:25: White Blood Count 12.7H, Red Blood Count 4.05L, Hemoglobin 12.1L, Hematocrit 35.3L, Mean Corpuscular Volume 87, Mean Corpuscular Hemoglobin 29.8, Mean Corpuscular Hemoglobin Concent 34.2, Red Cell Distribution Width 13.8, Platelet Count 297#, Mean Platelet Volume 5.9L, Neutrophils (%) (Auto) 77.6H, Lymphocytes (%) (Auto) 10.5L, Monocytes (%) (Auto) 8.9, Eosinophils (%) (Auto) 2.5, Basophils (%) (Auto) 0.6, Sodium Level 135L, Potassium Level 3.6, Chloride Level 100, Carbon Dioxide Level 25, Anion Gap 11, Blood Urea Nitrogen 10, Creatinine 0.7, Estimat Glomerular Filtration Rate > 60, Glucose Level 102, Calcium Level 8.6, Total Bilirubin 0.6, Aspartate Amino Transf (AST/SGOT) 16, Alanine Aminotransferase (ALT/SGPT) 26, Alkaline Phosphatase 83, Total Protein 6.2L, Albumin 2.5L, Globulin 3.7, Albumin/Globulin Ratio 0.7L Height (Feet): 5 Height (Inches): 7.00 Weight (Pounds): 149 General Appearance: WD/WN, alert Neck: supple Cardiovascular: regular rhythm Respiratory/Chest: lungs clear Abdomen: normal bowel sounds, non tender, soft, no organomegaly Edema: no edema noted Arm (L), no edema noted Arm (R), no edema noted Leg (L), no edema noted Leg (R), no edema noted Pedal (L), no edema noted Pedal (R), no edema noted Generalized DEJON DAMICO September 20, 2017 09:41
[2017-09-20] MEDS ORDERED: Tubing IV Secondary IV ONE (09:43)
--- NOTE | 2017-09-20 10:45 | General Progress Note ---
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 SNOMED: 344697212 Assessment/Plan started on clears per surg fu path fu labs prn blood transfusion imodium prn Subjective ROS Limited/Unobtainable: No Allergies: Coded Allergies: No Known Allergies (Verified , 06/03/09) Objective Last 24 Hour Vital Signs Date Time Temp Pulse Resp B/P (MAP) Pulse Ox O2 Delivery O2 Flow Rate FiO2 09/20/17 08:00 85 09/20/17 08:00 98.3 83 18 128/97 98 Nasal Cannula 2.0 98.3 09/20/17 07:05 99 Nasal Cannula 2.0 28 09/20/17 07:05 Nasal Cannula 2.0 28 09/20/17 04:16 84 09/20/17 04:00 98.4 89 20 145/90 98 Nasal Cannula 2.0 98.4 09/20/17 01:16 Nasal Cannula 2.0 28 09/20/17 01:16 99 Nasal Cannula 2.0 28 09/20/17 00:00 91 09/20/17 00:00 98.7 86 20 134/90 98 Nasal Cannula 2.0 98.7 09/19/17 20:00 85 09/19/17 20:00 98.9 96 20 137/92 98 Nasal Cannula 2.0 98.9 09/19/17 16:00 93 09/19/17 16:00 80 17 149/94 100 Nasal Cannula 2.0 09/19/17 14:00 98.3 86 18 165/86 100 Nasal Cannula 2.0 98.3 09/19/17 12:00 82 17 141/100 100 Nasal Cannula 2.0 09/19/17 12:00 80 09/19/17 10:45 81 14 139/100 100 Nasal Cannula 2.0 Intake and Output 09/19/17 09/20/17 19:00 07:00 Intake Total 995.0 ml 672.5 ml Output Total 1300 ml 450 ml Balance -305.0 ml 222.5 ml Intake Oral 250 ml 180 ml IV Total 745.0 ml 492.5 ml Output Urine Total 1300 ml 450 ml # Bowel Movements 1 6 Laboratory Tests 09/20/17 03:25: White Blood Count 12.7H, Red Blood Count 4.05L, Hemoglobin 12.1L, Hematocrit 35.3L, Mean Corpuscular Volume 87, Mean Corpuscular Hemoglobin 29.8, Mean Corpuscular Hemoglobin Concent 34.2, Red Cell Distribution Width 13.8, Platelet Count 297#, Mean Platelet Volume 5.9L, Neutrophils (%) (Auto) 77.6H, Lymphocytes (%) (Auto) 10.5L, Monocytes (%) (Auto) 8.9, Eosinophils (%) (Auto) 2.5, Basophils (%) (Auto) 0.6, Sodium Level 135L, Potassium Level 3.6, Chloride Level 100, Carbon Dioxide Level 25, Anion Gap 11, Blood Urea Nitrogen 10, Creatinine 0.7, Estimat Glomerular Filtration Rate > 60, Glucose Level 102, Calcium Level 8.6, Total Bilirubin 0.6, Aspartate Amino Transf (AST/SGOT) 16, Alanine Aminotransferase (ALT/SGPT) 26, Alkaline Phosphatase 83, Total Protein 6.2L, Albumin 2.5L, Globulin 3.7, Albumin/Globulin Ratio 0.7L Height (Feet): 5 Height (Inches): 7.00 Weight (Pounds): 149 General Appearance: lethargic EENT: normal ENT inspection Neck: supple Cardiovascular: normal rate Respiratory/Chest: decreased breath sounds Abdomen: normal bowel sounds, non tender, soft Extremities: non-tender Marbin Rivera MD September 20, 2017 10:45
[2017-09-20] MEDS: Loperamide 2mg cap ORAL PRN ×2 (11:38→20:22)
[2017-09-20 12:00] VITALS: BP 129/81
--- NOTE | 2017-09-20 14:07 | General Progress Note ---
Progress Note Progress Note Surgery: doing well. stable. comfortable. pain improved. tolerating diet. ambulatory. passing flatus and has had two non bloody bowel movements. afebrile, HD stable, exam benign. labs okay but does have a slight leukocytosis. abd soft, incisional tenderness, mild distention. wounds c/d/i. -advance diet -ambulate and out of bed -trend labs d/c iv fluids cont abx Mic Marks September 20, 2017 14:07
[2017-09-20 16:00] VITALS: BP 124/89
--- NOTE | 2017-09-20 17:45 | Operative Note - Dictated ---
DATE OF OPERATION: 09/16/2017 PREOPERATIVE DIAGNOSES: 1. Severe anemia. 2. Upper GI bleed. POSTOPERATIVE DIAGNOSES: 1. Severe anemia. 2. Upper GI bleed. 3. Small bowel tumor/mass. PROCEDURE PERFORMED: 1. Diagnostic laparoscopy converted to exploratory laparotomy with small bowel resection and primary anastomosis. 2. Central venous catheter placement. SURGEON: Mic Marks M.D. EXPLOSIVE ORDNANCE TECHNICIAN: None. ANESTHESIOLOGIST: Hernando Larios M.D. ANESTHESIA: General HAULAGE ENGINE OPERATOR. SPECIMENS: Small bowel resection with tumor. COMPLICATIONS: None. CONDITION: Stable. FLUIDS: Please see anesthesia records. ESTIMATED BLOOD LOSS: 50 mL. DRAINS: None. IMPLANTS: None. WOUND CLASSIFICATION: Class 3. COUNTS: Sponge and needle count correct x2. INDICATION FOR PROCEDURE: This is a 37-year-old male who presented to [facility] with severe anemia and hemoglobin of 3. The patient was transfused and resuscitated, but continued to have persistent bleeding. Upper and lower endoscopy was performed and no etiology of bleeding could be identified. The patient continued to bleed and required nearly 8 to 12 units of packed red blood cells and other blood products. Small bowel pill capsule was performed and noted etiology being the proximal small bowel. At this time, given the patient's persistent bleeding and continued need for aggressive resuscitation and blood products, surgical intervention was indicated and recommended. Discussion was held with Gastrology and they were present for procedure in order to perform intraoperative laparoscopic-assisted endoscopy of the small bowel if necessary. Risks, benefits and alternatives of surgery were discussed with the patient and family in detail who consented to surgery. Of note, prior to entering operating room, a central venous catheter was placed for fluids, resuscitation, blood products and medication as necessary. OPERATIVE NOTE: In the intensive care unit, a right internal jugular ultrasound-guided central venous catheter was placed. The right neck was prepped and draped in standard surgical fashion. An ultrasound was used to identify the right internal jugular vein. A finder needle was used to cannulate the internal jugular vein and a guidewire was placed as the needle was removed. A small skin incision was made and the dilator was used to dilate the tract followed by insertion of a triple-lumen central venous catheter. The guidewire was removed and discarded. Line was sutured in place using provided sutures. All ports flushed and aspirated appropriately. Appropriate Seldinger technique was used and dressings were applied. Chest x-ray was obtained and line was in good positioning. Following this, the patient was resuscitated with multiple units of packed red blood cells and taken to the operating room for surgical intervention. The patient placed on operating table in supine position. Bilateral arms out. All bony prominences were well padded. SCDs were placed. Preoperative time-out was taken identifying the patient, procedure, operative staff, and surgical staff. The patient was on antibiotics prior to entering the operating room. General anesthesia was induced and the patient was intubated. The abdomen was clipped, prepped and draped in the standard surgical fashion. An infraumbilical incision was made using a fresh #11 scalpel and carried down to the fascia, which was elevated and incised. Open Michelle technique was used to enter the abdomen without complication. Laparoscope was inserted and the abdomen was inspected. Secondary trocars were placed in the right and left mid upper quadrants with two 5 mm ports being placed under direct visualization in a similar fashion. Following this, the abdomen was inspected and the small bowel was run from ligament of Treitz distally. In the mid jejunum, there was a large tumor identified abutting the small bowel in the anti-mesenteric portion. The main abdomen looked otherwise normal including the liver, gallbladder, stomach and colon. At this time, given the patient had prior upper and lower endoscopy and this tumor was identified and distal to the tumor there was significant amount of blood into the small bowel. Decision was made to convert to laparotomy for resection of this tumor. The abdomen was allowed to desufflate and a midline incision was made using a fresh #10 scalpel carried down to the fascia, which was incised and the abdomen entered. No complication was noted at this time. The small bowel was then run from the ligament of Treitz to the ileocecal valve and the colon and stomach was inspected through the laparotomy. The only abnormality noted was this abutting the anti-mesenteric tumor in the jejunum portion of the small bowel. A proximal and distal resection margin was identified and incision was made into the mesentery. The small bowel was then divided proximally and distally, using a 75 mm linear SHAMAR stapler. The mesentery of the small bowel was then divided using multiple 2-0 silk sutures. The specimen was then sent to pathology for evaluation. At this time, decision was made to proceed with a [id number] stapled primary anastomosis. Small enterotomies were made at the two stapled ends of the small bowel and a linear stapler was passed through and fired. The staple line was identified and hemostasis obtained using multiple medium-sized clips. Following this, a second stapler was fired closing the enterotomy defect. The patency of the small bowel was identified and good flow was identified. The staple lines were reinforced with 3-0 silk Lembert interrupted sutures. Following this, the abdomen was irrigated and suctioned and no other abnormalities were noted. The small bowel mesentery defect was closed using a 3-0 silk interrupted sutures. Following this, the bowel was placed in its anatomic position and we began the closure of the procedure. A 2-0 loop PDS sutures were then used to close the fascial defect. Following this, the wound was cleansed and the skin was closed using surgical skin mika. The umbilical port site, 12 mm port site was closed using [id number] #0 Vicryl suture. The remaining port site incisions were closed using surgical skin mika. The wounds were then cleansed and dressings applied. The patient tolerated the procedure well, was taken to postanesthetic care unit in stable condition. Mic Marks M.D. DR: MERISSA JOB#: [id number] CC: PRABHA
[2017-09-20 20:00] VITALS: BP 137/90
[2017-09-21] VITALS: BP 109/79
[2017-09-21] MEDS ORDERED: Loperamide 2mg cap ORAL PRN (02:45)
[2017-09-21] MEDS ORDERED: Morphine Sulfate 4mg/ml Inj IVP PRN ×4 (03:00→15:47)
[2017-09-21] MEDS: Piperacillin/Tazobactam 3.375 GM in D5W 110 ML IVPB SCH ×3 (03:44→20:12)
[2017-09-21] MEDS ORDERED: LORazepam Inj 2mg/ml 1ml IV PRN (03:45)
[2017-09-21 04:00] VITALS: BP 103/63
[2017-09-21] MEDS ORDERED: DiphenhydrAMINE 50mg/ml Inj IVP PRN ×2 (06:45→15:46)
[2017-09-21 07:19] LABS: BASOPHILS % (AUTO) 0.7 % (0.0-2.0); EOSINOPHILS % (AUTO) 5.6 % (0.0-3.0); HEMATOCRIT 36.9 % (42.0-52.0); HEMOGLOBIN 12.9 G/DL (14.2-18.0); LYMPHOCYTES % (AUTO) 20.8 % (20.0-45.0); MEAN CORPUSCULAR VOLUME 87 FL (80-99); MONOCYTES % (AUTO) 9.9 % (1.0-10.0); NEUTROPHILS % (AUTO) 63.1 % (45.0-75.0); PLATELET COUNT 400 K/UL (150-450); RED BLOOD COUNT 4.22 M/UL (4.70-6.10); RED CELL DISTRIBUTION WIDTH 13.5 % (11.6-14.8); WHITE BLOOD COUNT 11.5 K/UL (4.8-10.8)
[2017-09-21 07:21] LABS: ALANINE AMINOTRANSFERASE 40 U/L (12-78); ALBUMIN 2.8 G/DL (3.4-5.0); ALBUMIN/GLOBULIN RATIO 0.7 (1.0-2.7); ALKALINE PHOSPHATASE 87 U/L (46-116); ANION GAP 8 mmol/L (5-15); ASPARTATE AMINO TRANSFERASE 21 U/L (15-37); BILIRUBIN,TOTAL 0.6 MG/DL (0.2-1.0); BLOOD UREA NITROGEN 9 mg/dL (7-18); CARBON DIOXIDE 28 MMOL/L (21-32); CHLORIDE 101 MMOL/L (98-107); CREATININE 0.9 MG/DL (0.55-1.30); POTASSIUM 3.3 MMOL/L (3.5-5.1); SODIUM 137 MMOL/L (136-145)
[2017-09-21 08:00] VITALS: BP 125/87
--- NOTE | 2017-09-21 08:07 | General Progress Note ---
Assessment/Plan Problem List: (1) Colitis ICD Codes: K52.9 - Noninfective gastroenteritis and colitis, unspecified SNOMED: 21276616 (2) Anemia ICD Codes: D64.9 - Anemia, unspecified SNOMED: 266048875 Qualifiers: Status: stable Assessment/Plan IVF resp rx pain rx PPI iv abx po per surgery await path- final results mobilize Subjective ROS Limited/Unobtainable: No Constitutional: Reports: no symptoms HEENT: Reports: no symptoms Cardiovascular: Reports: no symptoms Respiratory: Reports: no symptoms Gastrointestinal/Abdominal: Reports: no symptoms Genitourinary: Reports: no symptoms Neurologic/Psychiatric: Reports: no symptoms Endocrine: Reports: no symptoms Hematologic/Lymphatic: Reports: no symptoms Allergies: Coded Allergies: No Known Allergies (Verified , 06/03/09) All Systems: reviewed and negative except above Subjective no complaints. green diarrhea. decreased pain. Objective Last 24 Hour Vital Signs Date Time Temp Pulse Resp B/P (MAP) Pulse Ox O2 Delivery O2 Flow Rate FiO2 09/21/17 04:00 98.6 79 20 103/63 97 Room Air 98.6 09/21/17 04:00 82 09/21/17 00:00 98.5 82 20 109/79 97 Room Air 98.5 09/21/17 00:00 83 09/20/17 20:00 79 09/20/17 20:00 98.9 89 20 137/90 97 Room Air 98.9 09/20/17 18:47 98 Nasal Cannula 2.0 28 09/20/17 18:47 Nasal Cannula 2.0 28 09/20/17 16:00 85 09/20/17 16:00 98.9 94 20 124/89 98 Room Air 98.9 09/20/17 12:00 87 09/20/17 12:00 98.1 84 20 129/81 98 Nasal Cannula 2.0 98.1 Intake and Output 09/20/17 09/21/17 19:00 07:00 Intake Total 82.5 ml 164.85 ml Output Total 400 ml Balance 82.5 ml -235.15 ml IV Total 82.5 ml 164.85 ml Output Urine Total 400 ml # Voids 4 5 # Bowel Movements 10 6 Laboratory Tests 09/21/17 06:20: White Blood Count 11.5H, Red Blood Count 4.22L, Hemoglobin 12.9L, Hematocrit 36.9L, Mean Corpuscular Volume 87, Mean Corpuscular Hemoglobin 30.5, Mean Corpuscular Hemoglobin Concent 34.9, Red Cell Distribution Width 13.5, Platelet Count 400, Mean Platelet Volume 6.0L, Neutrophils (%) (Auto) 63.1, Lymphocytes ( %) (Auto) 20.8, Monocytes (%) (Auto) 9.9, Eosinophils (%) (Auto) 5.6H, Basophils (%) (Auto) 0.7, Sodium Level 137, Potassium Level 3.3L, Chloride Level 101, Carbon Dioxide Level 28, Anion Gap 8, Blood Urea Nitrogen 9, Creatinine 0.9, Estimat Glomerular Filtration Rate > 60, Glucose Level 109H, Calcium Level 9.0, Total Bilirubin 0.6, Aspartate Amino Transf (AST/SGOT) 21, Alanine Aminotransferase (ALT/SGPT) 40, Alkaline Phosphatase 87, Total Protein 6.7, Albumin 2.8L, Globulin 3.9, Albumin/Globulin Ratio 0.7L Height (Feet): 5 Height (Inches): 7.00 Weight (Pounds): 142 DEJON DAMICO September 21, 2017 08:07
--- NOTE | 2017-09-21 08:56 | General Progress Note ---
Assessment/Plan Problem List: (1) GI bleed ICD Codes: K92.2 - Gastrointestinal hemorrhage, unspecified SNOMED: 17626097 (2) Anemia ICD Codes: D64.9 - Anemia, unspecified SNOMED: [id number] Qualifiers: (3) Small bowel tumor ICD Codes: D49.0 - Neoplasm of unspecified behavior of digestive system SNOMED: 054674595 Assessment/Plan on eg diet now fu path fu labs prn blood transfusion imodium prn Subjective ROS Limited/Unobtainable: Yes Allergies: Coded Allergies: No Known Allergies (Verified , 06/03/09) Subjective feeling better Objective Last 24 Hour Vital Signs Date Time Temp Pulse Resp B/P (MAP) Pulse Ox O2 Delivery O2 Flow Rate FiO2 09/21/17 04:00 98.6 79 20 103/63 97 Room Air 98.6 09/21/17 04:00 82 09/21/17 00:00 98.5 82 20 109/79 97 Room Air 98.5 09/21/17 00:00 83 09/20/17 20:00 79 09/20/17 20:00 98.9 89 20 137/90 97 Room Air 98.9 09/20/17 18:47 98 Nasal Cannula 2.0 28 09/20/17 18:47 Nasal Cannula 2.0 28 09/20/17 16:00 85 09/20/17 16:00 98.9 94 20 124/89 98 Room Air 98.9 09/20/17 12:00 87 09/20/17 12:00 98.1 84 20 129/81 98 Nasal Cannula 2.0 98.1 Intake and Output 09/20/17 09/21/17 19:00 07:00 Intake Total 82.5 ml 164.85 ml Output Total 400 ml Balance 82.5 ml -235.15 ml IV Total 82.5 ml 164.85 ml Output Urine Total 400 ml # Voids 4 5 # Bowel Movements 10 6 Laboratory Tests 09/21/17 06:20: White Blood Count 11.5H, Red Blood Count 4.22L, Hemoglobin 12.9L, Hematocrit 36.9L, Mean Corpuscular Volume 87, Mean Corpuscular Hemoglobin 30.5, Mean Corpuscular Hemoglobin Concent 34.9, Red Cell Distribution Width 13.5, Platelet Count 400, Mean Platelet Volume 6.0L, Neutrophils (%) (Auto) 63.1, Lymphocytes ( %) (Auto) 20.8, Monocytes (%) (Auto) 9.9, Eosinophils (%) (Auto) 5.6H, Basophils (%) (Auto) 0.7, Sodium Level 137, Potassium Level 3.3L, Chloride Level 101, Carbon Dioxide Level 28, Anion Gap 8, Blood Urea Nitrogen 9, Creatinine 0.9, Estimat Glomerular Filtration Rate > 60, Glucose Level 109H, Calcium Level 9.0, Total Bilirubin 0.6, Aspartate Amino Transf (AST/SGOT) 21, Alanine Aminotransferase (ALT/SGPT) 40, Alkaline Phosphatase 87, Total Protein 6.7, Albumin 2.8L, Globulin 3.9, Albumin/Globulin Ratio 0.7L Height (Feet): 5 Height (Inches): 7.00 Weight (Pounds): 142 General Appearance: alert EENT: normal ENT inspection Neck: supple Cardiovascular: normal rate Respiratory/Chest: decreased breath sounds Abdomen: normal bowel sounds, non tender, soft Extremities: non-tender Marbin Rivera MD September 21, 2017 08:56
[2017-09-21 12:00] VITALS: BP 114/78
--- NOTE | 2017-09-21 12:36 | General Progress Note ---
Progress Note Progress Note Surgery: doing well. improving. tolerating regular diet. no n/v/f/c. comfortable. pain improved. +flatus, +BM abd soft, nt/nd, bs+, incisions c/d/i labs improving. -cont current care -d/c planning for thursday. -d/c abx tomorrow -AM labs Mic Marks September 21, 2017 12:36
[2017-09-21 16:53] VITALS: BP 129/92
[2017-09-21 20:00] VITALS: BP 119/80
[2017-09-21] MEDS: Loperamide 2mg cap ORAL PRN (20:13)
[2017-09-21] MEDS: LORazepam Inj 2mg/ml 1ml IV PRN (20:25)
[2017-09-22] VITALS: BP 115/80
[2017-09-22 04:00] VITALS: BP 103/74
[2017-09-22] MEDS: Piperacillin/Tazobactam 3.375 GM in D5W 110 ML IVPB SCH ×2 (05:24→12:13)
[2017-09-22 06:26] LABS: BASOPHILS % (AUTO) 1.1 % (0.0-2.0); EOSINOPHILS % (AUTO) 5.5 % (0.0-3.0); HEMATOCRIT 33.1 % (42.0-52.0); HEMOGLOBIN 11.4 G/DL (14.2-18.0); LYMPHOCYTES % (AUTO) 17.3 % (20.0-45.0); MEAN CORPUSCULAR VOLUME 88 FL (80-99); MONOCYTES % (AUTO) 10.7 % (1.0-10.0); NEUTROPHILS % (AUTO) 65.4 % (45.0-75.0); PLATELET COUNT 362 K/UL (150-450); RED BLOOD COUNT 3.74 M/UL (4.70-6.10); RED CELL DISTRIBUTION WIDTH 13.5 % (11.6-14.8); WHITE BLOOD COUNT 10.9 K/UL (4.8-10.8)
[2017-09-22 08:00] VITALS: BP_SYST 118; BP_DIAS 80; BP_DIAS 84
--- NOTE | 2017-09-22 08:56 | General Progress Note ---
Assessment/Plan Problem List: (1) Colitis ICD Codes: K52.9 - Noninfective gastroenteritis and colitis, unspecified SNOMED: 91129884 (2) Anemia ICD Codes: D64.9 - Anemia, unspecified SNOMED: 171605929 Qualifiers: Status: stable, progressing Assessment/Plan IVF resp rx pain rx PPI iv abx po per surgery await path- final results mobilize dc planning Subjective ROS Limited/Unobtainable: No Constitutional: Reports: malaise, weakness HEENT: Reports: no symptoms Cardiovascular: Reports: no symptoms Respiratory: Reports: no symptoms Gastrointestinal/Abdominal: Reports: no symptoms Genitourinary: Reports: no symptoms Neurologic/Psychiatric: Reports: no symptoms Endocrine: Reports: no symptoms Hematologic/Lymphatic: Reports: no symptoms Allergies: Coded Allergies: No Known Allergies (Verified , 06/03/09) All Systems: reviewed and negative except above Subjective no complaints. tolerating pos. no bleeding. Objective Last 24 Hour Vital Signs Date Time Temp Pulse Resp B/P (MAP) Pulse Ox O2 Delivery O2 Flow Rate FiO2 09/22/17 08:00 97.9 87 18 118/80 97 97.9 09/22/17 04:00 97.5 85 18 103/74 96 97.5 09/22/17 00:00 97.7 99 18 115/80 98 97.7 09/21/17 20:00 98.2 84 18 119/80 97 98.2 09/21/17 16:53 97.2 85 21 129/92 98 97.2 09/21/17 12:00 97.5 82 18 114/78 96 Room Air 97.5 Intake and Output 09/21/17 09/22/17 19:00 07:00 Intake Total 650 ml 340 ml Output Total 200 ml Balance 650 ml 140 ml Intake Oral 540 ml 340 ml IV Total 110 ml Output Urine Total 200 ml # Bowel Movements 2 1 Laboratory Tests 09/22/17 05:30: White Blood Count 10.9H, Red Blood Count 3.74L, Hemoglobin 11.4L, Hematocrit 33.1L, Mean Corpuscular Volume 88, Mean Corpuscular Hemoglobin 30.5, Mean Corpuscular Hemoglobin Concent 34.5, Red Cell Distribution Width 13.5, Platelet Count 362, Mean Platelet Volume 5.8L, Neutrophils (%) (Auto) 65.4, Lymphocytes ( %) (Auto) 17.3L, Monocytes (%) (Auto) 10.7H, Eosinophils (%) (Auto) 5.5H, Basophils (%) (Auto) 1.1 Height (Feet): 5 Height (Inches): 7.00 Weight (Pounds): 142 General Appearance: WD/WN Neck: supple Cardiovascular: regular rhythm Respiratory/Chest: lungs clear Abdomen: normal bowel sounds, non tender, soft, no organomegaly 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
[2017-09-22 12:00] VITALS: BP 119/83
[2017-09-22] MEDS: Loperamide 2mg cap ORAL PRN (12:13)
--- NOTE | 2017-09-22 13:18 | General Progress Note ---
Progress Note Progress Note Surgery: no acute events. doing well. comfortable. tolerating diet. ambulatory. no n /v/f/c. +BM's. labs improved -d/c home tomorrow Mic Marks September 22, 2017 13:18
[2017-09-22] MEDS ORDERED: Norco 5mg/325mg tab ORAL PRN (13:30)
[2017-09-22 16:00] VITALS: BP 115/83
[2017-09-22 20:00] VITALS: BP 125/85
--- NOTE | 2017-09-22 23:15 | General Progress Note ---
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 - Severe anemiam - resolved - hypovolemic shock - resolved - s/p ex lap Recommendations - diet per surgery - d/c planning - outpatient oncology evaluation Subjective Allergies: Coded Allergies: No Known Allergies (Verified , 06/03/09) Subjective seen in am doing well path noted - GIST , 2.3 cm Objective Last 24 Hour Vital Signs Date Time Temp Pulse Resp B/P (MAP) Pulse Ox O2 Delivery O2 Flow Rate FiO2 09/22/17 20:00 98.1 91 18 125/85 99 98.1 09/22/17 16:00 98.7 90 19 115/83 97 98.7 09/22/17 12:00 97.9 91 20 119/83 97 97.9 09/22/17 08:00 97.8 91 20 118/84 97 97.8 09/22/17 04:00 97.5 85 18 103/74 96 97.5 09/22/17 00:00 97.7 99 18 115/80 98 97.7 Intake and Output 09/21/17 09/22/17 19:00 07:00 Intake Total 650 ml 340 ml Output Total 200 ml Balance 650 ml 140 ml Intake Oral 540 ml 340 ml IV Total 110 ml Output Urine Total 200 ml # Bowel Movements 2 1 Laboratory Tests 09/22/17 05:30: White Blood Count 10.9H, Red Blood Count 3.74L, Hemoglobin 11.4L, Hematocrit 33.1L, Mean Corpuscular Volume 88, Mean Corpuscular Hemoglobin 30.5, Mean Corpuscular Hemoglobin Concent 34.5, Red Cell Distribution Width 13.5, Platelet Count 362, Mean Platelet Volume 5.8L, Neutrophils (%) (Auto) 65.4, Lymphocytes ( %) (Auto) 17.3L, Monocytes (%) (Auto) 10.7H, Eosinophils (%) (Auto) 5.5H, Basophils (%) (Auto) 1.1 Height (Feet): 5 Height (Inches): 7.00 Weight (Pounds): 142 Objective Pale in ICU CTA RR/tachy abd soft (+) dressing no edema mentating Jony Busch MD September 22, 2017 23:15
[2017-09-23] VITALS: BP 107/77
[2017-09-23] MEDS: LORazepam Inj 2mg/ml 1ml IV PRN (00:55)
[2017-09-23 04:00] VITALS: BP 112/79
[2017-09-23 08:00] VITALS: BP 115/82
--- NOTE | 2017-09-23 08:10 | General Progress Note ---
Progress Note Progress Note Surgery: doing well. no acute events. tolerating diet. comfortable. minimal pain. no n/v/f/c. +BM's. path reviewed with patient exam benign. afebrile, HD stable, wound c/d/i -okay to d/c -follow up with me in 1 week for staple removal. -path reviewed and outpatient follow up given thank you for allowing me to participate in patients care Mic Marks September 23, 2017 08:10
[2017-09-23] MEDS ORDERED: NORCO 5-325 TA1 EACH ORAL (09:33)
--- NOTE | 2017-09-24 04:15 | Discharge Summary ---
DATE OF ADMISSION: 09/12/2017 DATE OF DISCHARGE: 09/23/2017 ADMISSION DIAGNOSIS: Gastrointestinal bleed. DISCHARGE DIAGNOSIS: Gastrointestinal bleed status post resection of gastrointestinal stromal tumor. HOSPITAL COURSE: The patient is a pleasant young male, admitted with complaints of GI bleed. He required multiple transfusions. He eventually was transferred to the intensive care unit because of persistent bleed. Upper and lower endoscopies were unremarkable. He had a capsule study that showed bleeding from the proximal small bowel. Surgical consultation was obtained. The patient underwent emergent surgery for an active bleed. He had a GIST tumor resected from the proximal small bowel. He tolerated the procedure well. Afterwards, he did well. He will be discharged home. He has been asked to follow up with an oncologist and primary care doctor as an outpatient. DISCHARGE MEDICATIONS: Please see discharge medication list for discharge medications. DIET: Regular. ACTIVITY: Ad regine. Sukhwinder Moore M.D. DR: CHAKA JOB#: [id number] CC:
== END 2017-09-23 10:30 | disposition home or self-care (01) | DRG 951 ==
LOC: EMR 20:30 → EDBEDREQSVC 20:43 → EDBEDREQ 20:43 → MERGE 20:59 → 2W 20:59 → EDBEDREQ 21:06 → 2W 09-13 01:07 → ICU 09-16 07:52 → 2W 09-19 18:09 → 2E 09-21 00:55 → 3E 09-21 16:40
PROC: 30233N1 Transfusion of Nonautologous Red Blood Cells into Peripheral Vein, Percutaneous Approach (ICD-10-PCS; 2017-09-12)
PROC: 0DJ08ZZ Inspection of Upper Intestinal Tract, Via Natural or Artificial Opening Endoscopic (ICD-10-PCS; 2017-09-13)
PROC: 0DJD8ZZ Inspection of Lower Intestinal Tract, Via Natural or Artificial Opening Endoscopic (ICD-10-PCS; 2017-09-15)
PROC: 0DBA0ZZ Excision of Jejunum, Open Approach (ICD-10-PCS; principal; 2017-09-16 13:00)
DX: C49.A3 Gastrointestinal stromal tumor of small intestine (principal); R57.1 Hypovolemic shock; D62 Acute posthemorrhagic anemia; K57.30 Diverticulosis of large intestine without perforation or abscess without bleeding; Z53.31 Laparoscopic surgical procedure converted to open procedure
CPT/HCPCS: 36415; 36600; 71045; 80053; 81003; 82248; 82803; 82962; 83605; 85007; 85025; 85060; 85610; 85730; 86850; 86900; 86901; 86920; 86927; 87040; 87045; 87070; 87205; 87324; 94002; 94003; 94150; 94664; 94760; 99285; 99291; J2250; J2370; J2405; J2765; J3490; J8499

== ENCOUNTER 2018-08-23 17:50 | Emergency (ER) | payer MEDICAID, OTHER ==
[~2018-08-23] VITALS: Ht 170.2 cm; Wt 72.6 kg
[~2018-08-23 17:50] MED LIST changes: +NORCO 5-325 TA1 EACH ORAL
[2018-08-23] MEDS ORDERED: NKM (18:00)
[2018-08-23 18:07] VITALS: BP 108/82
--- NOTE | 2018-08-23 18:07 | NUR ---
ED Nurse Note: Pt from home came in due to RLQ abd. pain with blood in his stool started today and finger spasm. Pt had tumor surgery last year. Pt also c/o testicular pain. Pt is AAO x4, ambulatory with non labored breathing. VSS.
--- NOTE | 2018-08-23 18:19 | NUR ---
ED Nurse Note: Blood/urine sent.
[2018-08-23 18:27] LABS: BASOPHILS % (AUTO) 0.8 % (0.0-2.0); EOSINOPHILS % (AUTO) 0.2 % (0.0-3.0); HEMOGLOBIN 16.3 G/DL (14.2-18.0); LYMPHOCYTES % (AUTO) 10.4 % (20.0-45.0); MEAN CORPUSCULAR VOLUME 92 FL (80-99); MONOCYTES % (AUTO) 6.4 % (1.0-10.0); NEUTROPHILS % (AUTO) 82.2 % (45.0-75.0); PLATELET COUNT 325 K/UL (150-450); RED BLOOD COUNT 5.11 M/UL (4.70-6.10); RED CELL DISTRIBUTION WIDTH 11.3 % (11.6-14.8); WHITE BLOOD COUNT 17.8 K/UL (4.8-10.8)
[2018-08-23 18:30] LABS: APPEARANCE,URINE SLIGHTLY CLOUDY; BILIRUBIN, URINE NEGATIVE (NEGATIVE); COLOR,URINE AMBER; GLUCOSE, URINE (UA) NEGATIVE (NEGATIVE); KETONES,URINE 4+ (NEGATIVE); LEUKOCYTE ESTERASE ,URINE 2+ (NEGATIVE); NITRITE,URINE NEGATIVE (NEGATIVE); PH,URINE 6.5 (4.5-8.0); PROTEIN,URINE 1+ (NEGATIVE); UROBILINOGEN,URINE 1 MG/DL (0.0-1.0)
[2018-08-23 18:37] LABS: ANION GAP 13 mmol/L (5-15); BLOOD UREA NITROGEN 19 mg/dL (7-18); CALCIUM 9.3 MG/DL (8.5-10.1); CARBON DIOXIDE 23 MMOL/L (21-32); CHLORIDE 98 MMOL/L (98-107); CREATININE 1.3 MG/DL (0.55-1.30); POTASSIUM 3.5 MMOL/L (3.5-5.1); SODIUM 134 MMOL/L (136-145)
[2018-08-23 18:55] LABS: ALANINE AMINOTRANSFERASE 25 U/L (12-78); ALBUMIN 3.9 G/DL (3.4-5.0); ALKALINE PHOSPHATASE 81 U/L (46-116); ASPARTATE AMINO TRANSFERASE 15 U/L (15-37); BILIRUBIN,TOTAL 0.5 MG/DL (0.2-1.0); CREATINE KINASE 99 U/L (26-308)
--- NOTE | 2018-08-23 19:03 | Emergency Room Report ---
History of Present Illness General Chief Complaint: General Complaint Source: Patient, Medical Record Present Illness HPI This patient states that a couple days ago he had some burning when he urinated. He states he felt fine for a couple days after that and then today around 2 PM noted lower abdominal pain, burning sensation when he urinated and pain in both his testicles. He states he also has body aches. He denies nausea or vomiting. He denies fever or chills. He states he feels "terrible." About a year ago he had a tumor removed from his abdomen. He has no other complaints. Allergies: Coded Allergies: No Known Allergies (Verified , 06/03/09) Patient History Past Medical History: other - GIST tumor Past Surgical History: other - GIST tumor removal Social History: Denies: smoking, alcohol use, drug use Reviewed Nursing Documentation: PMH: Agreed; PSxH: Agreed Nursing Documentation-PMH Past Medical History: No History, Except For Hx Cardiac Problems: No Hx Cancer: No Hx Gastrointestinal Problems: Yes - GIST tumor surgery 09/18 Hx Neurological Problems: No Review of Systems All Other Systems: negative except mentioned in HPI Physical Exam Vital Signs Date Time Temp Pulse Resp B/P (MAP) Pulse Ox O2 Delivery O2 Flow Rate FiO2 08/23/18 17:57 98.4 108 18 120/74 96 Room Air Sp02 EP Interpretation: reviewed, normal General Appearance: no apparent distress, alert, GCS 15, non-toxic Head: normocephalic, atraumatic Eyes: bilateral eye normal inspection, bilateral eye PERRL ENT: hearing grossly normal, normal pharynx, no angioedema, normal voice Neck: full range of motion, supple/symm/no masses Respiratory: chest non-tender, lungs clear, normal breath sounds, no respiratory distress, no retraction, no accessory muscle use, speaking full sentences Cardiovascular #1: regular rate, rhythm, no edema Gastrointestinal: normal bowel sounds, soft, non-distended, no guarding, no rebound, tenderness - TTP in the RLQ Rectal: deferred Genitourinary: penis normal, other - BL testicles TTP. No swelling. + cremasteric reflex Musculoskeletal: back normal, gait/station normal, normal range of motion, non- tender Neurologic: alert, oriented x3, responsive, motor strength/tone normal, sensory intact, speech normal Psychiatric: judgement/insight normal, memory normal, mood/affect normal, no suicidal/homicidal ideation Skin: normal color, no rash, warm/dry, well hydrated Medical Decision Making Diagnostic Impression: Primary Impression: Pyelonephritis Additional Impression: Orchitis and epididymitis ER Course This patient is found to have a fever, elevated white blood cell count and urinary tract infection. Given the patient's age and further discussion with this patient he does have multiple sexual partners and could have contracted a sexually transmitted disease. Therefore, I did cover this patient with Rocephin and azithromycin. He was febrile with an elevated white blood cell count and a source of infection and that criteria for sepsis. He is given IV fluids and broad-spectrum antibiotics. CT of the abdomen and pelvis showed no evidence of appendicitis. I obtained the CT to assess for this. On physical exam the patient was tender to palpation in the right lower quadrant. However, this is unremarkable. The patient is admitted for further evaluation and treatment and for IV antibiotics. The patient's insurance company requested his transfer to [facility]. Patient was transferred in a stable condition. Laboratory Tests Test 08/23/18 18:10 08/23/18 19:25 White Blood Count 17.8 K/UL (4.8-10.8) H Red Blood Count 5.11 M/UL (4.70-6.10) Hemoglobin 16.3 G/DL (14.2-18.0) Hematocrit 47.0 % (42.0-52.0) Mean Corpuscular Volume 92 FL (80-99) Mean Corpuscular Hemoglobin 31.9 PG (27.0-31.0) H Mean Corpuscular Hemoglobin Concent 34.6 G/DL (32.0-36.0) Red Cell Distribution Width 11.3 % (11.6-14.8) L Platelet Count 325 K/UL (150-450) Mean Platelet Volume 6.2 FL (6.5-10.1) L Neutrophils (%) (Auto) 82.2 % (45.0-75.0) H Lymphocytes (%) (Auto) 10.4 % (20.0-45.0) L Monocytes (%) (Auto) 6.4 % (1.0-10.0) Eosinophils (%) (Auto) 0.2 % (0.0-3.0) Basophils (%) (Auto) 0.8 % (0.0-2.0) Urine Color Isabel Urine Appearance Slightly cloudy Urine pH 6.5 (4.5-8.0) Urine Specific [place] 1.010 (1.005-1.035) Urine Protein 1+ (NEGATIVE) H Urine Glucose (UA) Negative (NEGATIVE) Urine Ketones 4+ (NEGATIVE) H Urine Blood 3+ (NEGATIVE) H Urine Nitrite Negative (NEGATIVE) Urine Bilirubin Negative (NEGATIVE) Urine Ictotest Negativ e (NEGATIVE) Urine Urobilinogen 1 MG/DL (0.0-1.0) H Urine Leukocyte Esterase 2+ (NEGATIVE) H Urine RBC 5-10 /HPF (0 - 0) H Urine WBC 20-30 /HPF (0 - 0) H Urine Squamous Epithelial Cells Occasional /LPF Urine Bacteria Moderate /HPF (NONE) H Urine Mucus Few /LPF (NONE/OCC) H Sodium Level 134 MMOL/L (136-145) L Potassium Level 3.5 MMOL/L (3.5-5.1) Chloride Level 98 MMOL/L (98-107) Carbon Dioxide Level 23 MMOL/L (21-32) Anion Gap 13 mmol/L (5-15) Blood Urea Nitrogen 19 mg/dL (7-18) H Creatinine 1.3 MG/DL (0.55-1.30) Estimate Glomerular Filtration Rate > 60 mL/min (>60) Glucose Level 127 MG/DL (74-106) H Lactic Acid Level 2.30 mmol/L (0.4-2.0) H Pending Calcium Level 9.3 MG/DL (8.5-10.1) Phosphorus Level 1.0 MG/DL (2.5-4.9) L Magnesium Level 1.6 MG/DL (1.8-2.4) L Total Bilirubin 0.5 MG/DL (0.2-1.0) Aspartate Amino Transferase (AST) 15 U/L (15-37) Alanine Aminotransferase (ALT) 25 U/L (12-78) Alkaline Phosphatase 81 U/L (46-116) Total Creatine Kinase 99 U/L (26-308) Total Protein 7.8 G/DL (6.4-8.2) Albumin 3.9 G/DL (3.4-5.0) Globulin 3.9 g/dL Albumin/Globulin Ratio 1.0 (1.0-2.7) CT/MRI/US Diagnostic Results CT/MRI/US Diagnostic Results : Imaging Test Ordered: CT abd/pelvis Impression There is a small bowel anastomosis in the left lower quadrant which is normal in appearance. No inflammatory changes along with GI current. Normal appendix. No acute findings. See official report. Last Vital Signs Date Time Temp Pulse Resp B/P (MAP) Pulse Ox O2 Delivery O2 Flow Rate FiO2 08/23/18 18:07 98.4 97 18 108/82 98 Room Air Disposition: [facility]OS[facility] Condition: Stable Madiha Deras DO Aug 23, 2018 19:03
--- NOTE | 2018-08-23 19:10 | NUR ---
HAND-OFF: Report given to hemalatha AGUILERA.
[2018-08-23] MEDS ORDERED: Isovue-300 100ml vial INJ PRN (19:15)
[2018-08-23] MEDS ORDERED: cefTRIAXone 1 GM in NS 55 ML IVPB ONE (19:30)
[2018-08-23] MEDS ORDERED: Azithromycin 250mg tab ORAL ONE (19:30)
[2018-08-23 19:34] VITALS: BP 173/95
--- NOTE | 2018-08-23 19:47 | NUR ---
ED Nurse Note: per ermd retrieve rectal temp 100.6
--- NOTE | 2018-08-23 23:21 | NUR ---
ED Nurse Note: TELEPHONE REPORT GIVEN TO WILLY GLEASON AT [facility]
--- NOTE | 2018-08-23 23:25 | NUR ---
ED Nurse Note: PT TRANSFERRED WITH AMBULANCE PERSONNEL. PT IS AOX4 WITH SKIN INTACT. PT ON ROOM AIR WITH NO SIGNS OF DISRESS. VSS AT THE MOMENT. ALL BELONGINGS GIVEN TO AMBULANCE PERSONNEL.
[2018-08-23 23:39] VITALS: BP 126/89
--- NOTE | 2018-08-24 11:11 | Diagnostic Imaging Report ---
Clinical Indication: Right lower quadrant abdominal pain with blood in the stool. History of testicular pain. History of tumor surgery Technique: No oral contrast utilized, per emergency room physician request IV administration nonionic contrast. Venous phase spiral acquisition obtained through the abdomen and pelvis. Multiplanar reconstructions were generated. Total dose length product 494.16 mGycm. CTDIvol(s) 10.08 mGy. Dose reduction achieved using automated exposure control Comparison: none Findings: There are colonic diverticula. There is equivocal wall thickening of the ascending and transverse colon. The appendix is normal. There is wall thickening of the proximal jejunum. Small bowel loops demonstrate wall thickening, particularly proximally, and are fluid-filled, particularly distally. There is anastomotic staple line of the small bowel in the left lower quadrant. No free or loculated intraperitoneal gas or fluid is evident. The distal esophagus, stomach, duodenum are unremarkable. The gallbladder is nondistended. The liver, bile ducts, pancreas, spleen, adrenals are unremarkable. There is mild dilatation of the bilateral renal pelvises, but no annia hydronephrosis or hydroureter. The bladder wall is thickened. The prostate is somewhat prominent for age. No pelvic mass or adenopathy. No retroperitoneal or mesenteric mass or adenopathy. The included lung bases are clear. The bones are unremarkable. Impression: Thickened bladder wall, may indicate cystitis. Per electronic medical record, this is concordant with the clinical findings Small bowel wall thickening, could indicate enteritis. Equivocal colonic wall thickening, probably an artifact of under distention The above findings were not described on the [facility] preliminary report. [facility] has been notified. Evidence of prior small bowel surgery. This is concordant with the [facility] preliminary report The CT scanner at [facility] [place] is accredited by the [employer] and the scans are performed using protocols designed to limit radiation exposure to as low as reasonably achievable to attain images of sufficient resolution adequate for diagnostic evaluation.
== END 2018-08-23 23:25 | disposition short-term general hospital (02) ==
LOC: EMR 18:29
DX: N12 Tubulo-interstitial nephritis, not specified as acute or chronic (principal); N45.3 Epididymo-orchitis
CPT/HCPCS: 36415; 74177; 80053; 81003; 82550; 83605; 83735; 84100; 85025; 87086; 87181; 96361; 96365; 99285; J0696; Q0144; Q9967

== ENCOUNTER 2018-10-06 05:20 | Emergency (ER) | payer OTHER ==
[~2018-10-06] VITALS: Ht 167.6 cm; Wt 72.6 kg
[2018-10-06 05:38] VITALS: BP 133/104
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
[2018-10-06] MEDS ORDERED: IBUPROFEN600 MG ORAL (05:46)
[2018-10-06] MEDS ORDERED: POLYTRIM OP SOL10 ML LEFT EYE (05:46)
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
[2018-10-06 05:51] VITALS: BP 133/104
--- NOTE | 2018-10-06 05:52 | NUR ---
ED Nurse Note: Pt cleared by health care Provider for discharge. DC instructions/prescription was given and explained to pt and verbalized understanding of teachings. All medical deviecs such as ID band removed. Pt is AAO x4, ambulatory and left with all personal belongings.
== END 2018-10-06 05:52 | disposition home or self-care (01) ==
LOC: EMR 05:42
DX: S05.02XA Injury of conjunctiva and corneal abrasion without foreign body, left eye, initial encounter (principal); Y09 Assault by unspecified means; H15.04 Scleritis with corneal involvement
CPT/HCPCS: 99282